=== PATIENT | female | born 1950 | race Caucasian/White ===

== ENCOUNTER 2017-02-09 12:52 | Outpatient (RCR) | payer OTHER, MEDICARE ==
[2016-12-20 10:50] LABS: PLATELET COUNT, AUTOMATED 145 K/uL (150-450)
[2016-12-27 10:44] VITALS: BP 112/67
[2016-12-27 11:08] LABS: PLATELET COUNT, AUTOMATED 164 K/uL (150-450)
[2017-01-03 10:56] LABS: PLATELET COUNT, AUTOMATED 116 K/uL (150-450)
[2017-01-03 12:35] VITALS: BP 127/67
[2017-01-10 10:48] LABS: PLATELET COUNT, AUTOMATED 90 K/uL (150-450)
[2017-01-12 12:58] VITALS: BP 121/79
--- NOTE | 2017-01-12 13:44 | ONC Progress Note - NP.Halsey ---
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 She is receiving palliative chemotherapy with capecitabine and Temodar since 11/2015. She tolerates oral chemotherapy very well, with fatigue and constipation being only side effects. She has occasional nausea without vomiting, which responds well to Zofran PRN She denies oral stomatitis, skin changes or diarrhea. Problem List (1) Pancreatic cancer metastasized to liver (2) Pancreatic cancer metastasized to lung (3) Constipation by delayed colonic transit Oncology History ONCOLOGY HISTORY The patient is a pleasant 66-year-old female. PRESENTATION Food poisoning when she was in [place] in August, with persistent nausea and vomiting, treated with antibiotic without improvement. She was also treated with metronidazole for P. hominis, which helped some, but nausea persisted. She also developed right upper quadrant abdominal pain. DIAGNOSTIC EVALUATION 1. Ultrasound of the right upper quadrant, done December 28, 2014, showed ill- defined hypoechoic globular mass in the tail of the pancreas 3.3 x 2.8 cm, worrisome for pancreatic neoplasm. There appears to be numerous hepatic and splenic metastases. 2. CT abdomen and pelvis done January 05, 2015 showed 2.6 cm lesion within the distal pancreatic body, concerning for primary pancreatic malignancy. There was hepatic hypoattenuating lesions. There was right axillary mediastinal , subcarinal, hilar, periportal and left periaortic adenopathy suspicious for metastatic disease with several noncalcified less than 6 mm pulmonary nodules bilaterally, indeterminate for metastatic disease. 3. Octreotide scan done February 04, 2015 revealed findings consistent with multiple metastatic lesions in the liver. No definite uptake in the chest or elsewhere. 4. 5-hydroxyindoleacetic acid in 24-hour urine specimen was normal. 5. Chromogranin A was elevated at 136. PROCEDURE 1. EGD done December 19, 2014 reveals stomach with histologic features consistent with reactive gastropathy. No active gastritis or Helicobacter pylori seen. 2. CT guided biopsy of the liver mass done January 07, 2015, was positive for well differentiated neuroendocrine tumor Ki-67. Proliferation rate was 10% to 20%, consistent with GI intermediate grade (grade 2) well differentiated neuroendocrine tumor. PATHOLOGY Intermediate grade, well differentiated, neuroendocrine tumor grade 2 with Ki- 67 proliferation rate of 10% to 20%. TREATMENT 1. Patient started first line therapy with Sandostatin March 2015. 2. Patient started second line therapy with capecitabine and Temodar January 11, 2016 for progressive disease. Medical History Past Medical History PAST MEDICAL HISTORY 1. Cataract surgery. 2. Hypothyroidism. 3. Anxiety. Past Surgical History PAST SURGICAL HISTORY 1. Partial hysterectomy 01/1990. 2. Tonsillectomy in 1959. 3. Cataract surgery between 2008 and 2009. Psychosocial History Smoking History: No Medications and Allergies Active Scripts Ondansetron (ONDANSETRON ODT) 4 Mg Tab.rapdis, 4 MG PO PRN, #90 MG 1 Refill Prov:TRINI COFFMAN [employer]IOR [employer]ELOPER[employer]BC, ONC 09/19/16 Capecitabine (XELODA) 500 Mg Tab, 1300 MG GT BID, #14 TAB take 1300mg bid x 14 days every 28 days Prov:TRINI COFFMAN SENIOR WEB DEVELOPER-BC, ONC 03/28/16 Reported Medications [place]-3 Fatty Acids/Fish Oil (FISH OIL 1,000 MG SOFTGEL) 1 Each Capsule, 1 EACH PO DAILY, CAPSULE 04/28/16 Temozolomide (TEMODAR) 180 Mg Capsule, 360 MG PO DIRECTED, CAPSULE 03/31/16 Multivitamin/Iron/Folic Acid (CENTRUM COMPLETE MULTIVIT TAB) 1 Each Tablet, 1 EACH PO DAILY 01/15/15 Calcium Carbonate/Vitamin D3 (CALCIUM 1,000 + D3 CAPLET) 1 Each Tablet, 1 EACH PO DAILY 01/15/15 Zinc Amino Acid Chelate (ZINC) 50 Mg Tablet, 50 MG PO DAILY 01/15/15 Levothyroxine Sodium (Levothroid) 125 Mcg Tablet, 125 MCG PO DAILY, 0 Refills 09/24/09 Allergies: Coded Allergies: No Known Drug Allergies (Verified , 12/11/15) Review of System/Physical Exam Review of Systems Constitutional: Denies Appetite/Weight Change, Denies Fever/Chills/Sweating, Denies Recent Infection, Denies Other Cardiovascular: Denies Chest Pain, Denies Orthopnea, Denies Edema, Denies Palpitations, Denies Other Respiratory: Denies Cough, Denies Expectoration, Denies Hemoptysis, Denies Shortness of Breath, Denies Wheezing, Denies Other HEENT: No Tinnitus, No Hearing Problems, No Epistaxis, No Nasal Discharge, No Sore Throat, No Mouth Ulcers, No Other Gastrointestinal: Nausea (occasional), Constipation, No Vomitting, No Diarrhea, No Heart Burn, No Swallowing Difficulties, No Abdominal Pain, No Other Genitourinary: Denies Hematuria, Denies Dysuria, Denies Nocturia, Denies Other Endocrine: Denies Diabetes, Denies Hot Flashes, Denies Thyroid Issues, Denies Enlarged Lymph Nodes, Denies Other Hematologic: Denies Bruising, Denies Bleeding, Denies Fatigue, Denies Weakness , Denies Other Musculoskeletal: Denies Muscle Pain, Denies Joint Pain, Denies Bone Pain, Denies Other Neurologic: No Numbness of Hands, No Tingling of Hands, No Headaches, No Numbness of Feet, No Tingling of Feet, No Convulsions, No Other Psychiatric: No Anxiety, No Depression, No Other Skin: Denies Skin Rash, Denies Lumps, Denies Erythema, Denies Dry Skin, Denies Moist Skin, Denies Other Physical Exam Vital Signs Temperature: 97.1 Pulse: 89 BP Systolic: 121 BP Diastolic: 79 Respiratory Rate: 16 O2 SAT: 96 O2 Delivery: Room Air Height (inches) 66.00 Weight lb: 153 Weight oz: 9.0 Weight Kg (Felix): 72.83 Pain: 0 General: Stable, Well Developed, Well Nourished, Not In Acute Distress, Not Other HEENT: No Trauma, No Conjunctivitis, No Icterus, No Mucositis, No Oral Thrush, No Sinus Tenderness, No Other Neck: Supple, No Thyromegaly, No Other Lungs: Clear to Auscultation, Not Percussed Bilaterally, Not Other Heart: Regular Rate, Regular Rhythm, No Gallops, No Murmurs Abdomen: Soft and Nontender, No Hepatosplenomegaly, No Masses Extremities: No Cyanosis, No Clubbing, No Edema, No Other Lymphadenopathy: No None, No Cervical, No Subclavicular, No Axillary, No Peripheral, No Femoral, No Other Psychiatric: Mood appears normal, Affect appears normal Skin: No Skin Rashes, No Bruising, No Purpura, No Moist Desquamation, No Dry Desquamation, No Erythema, No Mild Erythema, No Moderate Erythema, No Severe Erythema, No Induration, No Other Diagnostic Studies Diagnostic Studies Laboratory Laboratory Tests 01/10/17 10:35 Laboratory Tests 12/27/16 10:55: Peripheral Blood Smear No, Carcinoembryonic Antigen 6.5, Chromagranin A 128 01/10/17 10:35: White Blood Count 2.6, Red Blood Count 3.64, Hemoglobin 13.7, Hematocrit 38.4, Mean Corpuscular Volume 105.3, Mean Corpuscular Hemoglobin 37.6, Mean Corpuscular Hemoglobin Concent 35.7, Red Cell Distribution Width 14.7, Platelet Count 90, Mean Platelet Volume 6.8, Neutrophils (%) (Auto) 71.8, Lymphocytes (% ) (Auto) 10.9, Monocytes (%) (Auto) 12.9, Eosinophils (%) (Auto) 3.3, Basophils (%) (Auto) 1.1, Nucleated RBC Relative Count (auto) 0.1, Neutrophils # (Auto) 1.8, Lymphocytes # (Auto) 0.3, Monocytes # (Auto) 0.3, Eosinophils # (Auto) 0.1 , Basophils # (Auto) 0.0, Nucleated RBC Absolute Count (auto) 0.00, Sodium Level 139, Potassium Level 4.3, Chloride Level 108, Carbon Dioxide Level 20, Blood Urea Nitrogen 15, Creatinine 0.70, Glomerular Filtration Rate Calc > 60.0 , Random Glucose 97, Calcium Level 9.7, Total Bilirubin 0.8, Aspartate Amino Transf (AST/SGOT) 26, Alanine Aminotransferase (ALT/SGPT) 33, Alkaline Phosphatase 92, Total Protein 7.4, Albumin 4.1 Assessment and Plan Assessment & Plan ASSESSMENT 1. Stage IV pancreatic neuroendocrine tumor, well differentiated, grade 2, with mass in the distal body of the pancreas with metastasis to the liver and lung by CT of abdomen and pelvis done January 05, 2015. CT-guided biopsy of the liver mass done January 05, 2015 showed well differentiated neuroendocrine tumor with Ki-67 proliferation rate of 10% to 20%, consistent with intermediate grade well differentiated neuroendocrine tumor. Octreotide scan showed uptake in multiple lesions in the liver, but not in the pancreas or in the lungs or elsewhere. 5-hydroxyindoleacetic acid in the urine was normal. Patient has been evaluated at [facility] with recommendation of treatment with Sandostatin, which was given between March 2015 through December 10, 2015, when CT scan of the abdomen and pelvis revealed severe hepatomegaly with innumerable metastases throughout the liver, with evidence of progression. Patient started second line palliative treatment with capecitabine and Temodar January 11, 2016. She has received 11 cycles so far and is tolerating treatment very well, except for worsening fatigue. She is currently on day 12 of capecitabine and day 3 of Temodar. She has not had any recent imaging. She is currently using capecitabine 1300 mg twice daily for 14 days, and Temodar 360 mg daily for 5 days, days 10-14 of each cycle. CEA is currently 6.5 and chromogranin A is currently 128. She has chronic leukopenia without neutropenia and chronic thrombocytopenia. She will return to the office for a follow up visit in a month with CBC, CMP, CEA and chromogranin A. Plan is to consider dose reduction if worsening leukopenia and neutropenia. 2. Chemotherapy-induced thrombocytopenia. Current platelet count 90,000. 3. Chemotherapy-induced leukopenia. Current white count 2.6, ANC is 1800. I will monitor CBC weekly and consider chemotherapy dose reductions if neutropenia or worsening thrombocytopenia. 4. Hypothyroidism, on supplement. 5. Anxiety, on Zoloft. PLAN: 1. Capecitabine 1300 mg twice daily for 14 days - day 12 of cycle 11. 2. Temodar 360 mg for five days, days 10-14 of each cycle of chemotherapy - day 3 of cycle 11. 3. CBC and CMP weekly. 4. Patient to return for follow up in 4 weeks with CBC, CMP, chromogranin A and CEA. 5. Patient to contact us for any new concerns or complaints. I personally spent a total of 25 minutes. Of that 15 minutes was counseling/ coordination of patient's care. See my note above for details. DAVID CRUZ MD Jan 12, 2017 13:44
[2017-01-17 11:20] LABS: PLATELET COUNT, AUTOMATED 122 K/uL (150-450)
[2017-01-17 12:20] VITALS: BP 128/79
[2017-01-24 10:41] VITALS: BP 142/81
[2017-01-24 11:01] LABS: PLATELET COUNT, AUTOMATED 133 K/uL (150-450)
[2017-01-31 10:42] VITALS: BP 132/83
[2017-01-31 10:50] LABS: PLATELET COUNT, AUTOMATED 124 K/uL (150-450)
[2017-02-07 10:25] VITALS: BP 124/79
[2017-02-07 10:52] LABS: PLATELET COUNT, AUTOMATED 127 K/uL (150-450)
[~2017-02-09] VITALS: Ht 167.6 cm; Wt 82.8 kg
[~2017-02-09 12:52] MED LIST: CALC-965 PO; CAPE150T PO; FENT1PAT40 TD; FLAX100027 PO; LEVO125T77 PO; MULT-768 PO; OCTR20KI IM; OMEG-23 PO; ONDA4TAB9 PO; SERT-181 PO; SERT25TA87 PO; TOLT2CAP7 PO; XELOD500PT GT; ZINC50TA2 PO; [UNRECOGNIZED DRUG - CODE] PO
[2017-02-09 13:00] VITALS: BP 124/80
--- NOTE | 2017-02-09 19:33 | ONCOLOGY FOLLOW UP NOTE ---
EVENT DATE: February 09, 2017 DIAGNOSES 1. 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 2. Hypothyroidism. 3. Anxiety. 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 ONCOLOGY HISTORY The patient is a 66-year-old female. The patient is here today for followup of her pancreatic neuroendocrine tumor with hepatic metastasis. The patient is stable clinically. She has some cough and nasal discharge from her allergy. She has occasional nausea, vomiting and diarrhea. She has also right upper quadrant abdominal pain, especially on taking a breath. Hematologically, she is weak, tired and fatigued. PRESENTATION Food poisoning when she was in [place] in August, with persistent nausea and vomiting, treated with antibiotic without improvement. She was also treated with metronidazole for P. hominis, which helped some, but she remains with persistent nausea. She also developed right upper quadrant abdominal pain. DIAGNOSTIC EVALUATION 1. Ultrasound of the right upper quadrant, done December 28, 2014. Did reveal ill-defined hypoechoic globular mass in the tail of the pancreas 3.3 x 2.8 cm, worrisome for pancreatic neoplasm. There appears to be numerous hepatic and splenic metastases. 2. CT abdomen and pelvis done January 05, 2015 did reveal 2.6 cm lesion within the distal pancreatic body, concerning for primary pancreatic malignancy. There was hepatic hypoattenuating lesions. There was right axillary mediastinal, subcarinal, hilar, periportal and left periaortic adenopathy suspicious for metastatic disease with several noncalcified less than 6 mm pulmonary nodules bilaterally, indeterminate for metastatic disease. 3. Octreotide scan done February 04, 2015 revealed findings consistent with multiple metastatic lesions in the liver. No definite uptake in the chest or elsewhere. 5-hydroxyindoleacetic acid in 24-hour urine specimen was normal. 4. Chromogranin A was elevated at 136. PROCEDURE 1. EGD done December 19, 2014 reveals stomach with histologic features consistent with reactive gastropathy. No active gastritis or Helicobacter pylori seen. 2. CT guided biopsy of the liver mass done January 07, 2015, came back positive for well differentiated neuroendocrine tumor Ki-67. Proliferation rate was 10% to 20%, consistent with GI intermediate grade (grade 2) well differentiated neuroendocrine tumor. PATHOLOGY Positive for intermediate grade, well differentiated, neuroendocrine tumor grade 2 with Ki-67 proliferation rate of 10% to 20%. TREATMENT 1. Patient started treatment with Sandostatin March 2015. 2. Patient started treatment with capecitabine and Temodar January 11, 2016 for progressive disease. 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 She is doing really very well and feeling very well in herself, except that she has some joint pains mainly in the shoulders and knees. She has also some constipation. She has also some fatigue , but other than that she is really feeling very well. PAST MEDICAL HISTORY 1. Insignificant except for cataract removal. 2. Hypothyroidism. 3. Anxiety. PAST SURGICAL HISTORY 1. In January 1990, the patient had partial hysterectomy. 2. In 1959, the patient had tonsillectomy. 3. She had cataract surgery between 2008 and 2009. SOCIAL HISTORY The patient is . She does not have biological children. 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 She has about twelve drinks per year. She denies any abuse of tobacco or illicit drugs. FAMILY HISTORY Father had lung cancer at the age of 72. CURRENT MEDICATIONS 1. Levothyroxine 125 mcg daily. 2. Sandostatin LAR 20 mg intramuscularly every month. 3. Zinc 50 mg daily. 4. Fish oil 1000 mg daily. 5. Calcium and vitamin D 1200 mg daily. 6. Zofran 4 mg three times daily. 7. Centrum multivitamin one tablet daily. ALLERGIES No known drug allergies. REVIEW OF SYSTEMS CONSTITUTIONAL: No appetite or weight change. No fever, chills or sweating. No recent infection. HEENT: Ears: No tinnitus or hearing problem. Nose: Patient has runny nose. Throat: No sore throat or mouth ulcers. Eyes: No diplopia or visual changes. RESPIRATORY: No shortness of breath. No cough, expectoration or hemoptysis. CARDIOVASCULAR: No chest pain, orthopnea, or paroxysmal nocturnal dyspnea (PND) . No edema. No palpitations. GASTROINTESTINAL: She has constipation. HEMATOLOGICAL: She is weak, tired and fatigued. GENITOURINARY: No hematuria or dysuria. MUSCULOSKELETAL: She has pain in the shoulders and knees. NEUROLOGICAL: No tingling or numbness in the hands or feet. No headaches or convulsions. SKIN: No skin rash or lumps. PSYCHIATRIC: No anxiety or depression. PHYSICAL EXAMINATION GENERAL: Looks stable. Well-developed, well-nourished, and in no acute distress. VITAL SIGNS: Blood pressure 124/80, pulse 90 per minute, respirations 16 per minute, temperature 97.7, pulse ox 95% on room air. HEENT: Head: Atraumatic. No sinus tenderness to palpation. Eyes: No icterus or conjunctivitis. Mouth and throat: No oral thrush or mucositis. NECK: Supple. No cervical or supraclavicular lymphadenopathy. LUNGS: Clear to auscultation and percussion bilaterally. HEART: Regular rate and rhythm. No gallops, murmurs, clicks or rubs. ABDOMEN: The liver is palpable at the right costal margin, but it is not tender on palpation at this time. EXTREMITIES: No cyanosis, clubbing or edema. LYMPHATICS: No peripheral lymphadenopathy. NEUROLOGICAL: Conscious, alert and oriented times three. No focal motor or sensory deficits. PSYCHIATRIC: Mood and affect appear normal. DIAGNOSTIC DATA CBC showed a white count of 2.2, hemoglobin 13.6, hematocrit 38.3, platelets 127 ,000. Chem panel totally normal except chloride 108, carbon dioxide 20. CEA is 6, which is down from 6.5 and chromogranin 143, which is up from 128. ASSESSMENT 1. Stage IV pancreatic neuroendocrine tumor, well differentiated, grade 2, with mass in the distal body of the pancreas with metastasis to the liver and lung by CT of abdomen and pelvis done January 05, 2015. CT-guided biopsy of the liver mass done January 05, 2015 came back positive for well differentiated neuroendocrine tumor with Ki-67 proliferation rate of 10% to 20% , consistent with intermediate grade well differentiated neuroendocrine tumor. Octreotide scan showed uptake in multiple lesions in the liver, but not in the pancreas or in the lungs or elsewhere. 5-hydroxyindoleacetic acid in the urine was normal. Patient has been evaluated at [facility] with recommendation of treatment with Sandostatin, which was given between March 2015 through December 10, 2015, when CT scan of the abdomen and pelvis revealed severe hepatomegaly with innumerable metastases throughout the liver, with evidence of progression. Patient started treatment with capecitabine and Temodar on January 11, 2016. She has received 12 cycles so far and is tolerating treatment very well. She is feeling very well in herself. Her tumor marker showed response to her treatment. Her CEA dropped from 6.5 last visit, and currently 6. Patient currently using capecitabine 1300 mg twice daily for 14 days, and Temodar 360 mg for 5 days from day 10-14 of each cycle. I am planning to continue the same treatment. I will see her again in a month with CBC, chem panel, CEA and chromogranin A. 2. Chemotherapy-induced thrombocytopenia. Current platelet count 1270,000. I will continue to monitor. 3. Chemotherapy-induced leukopenia. Current white count is 2.2. I may consider decreasing the dose of her chemotherapy. 4. Hypothyroidism, on supplement. 5. Anxiety, on Zoloft. PLAN: 1. Capecitabine 1300 mg twice daily for 14 days. This will be cycle 13. 2. Temodar 360 mg for five days, days 10-14 of each cycle of chemotherapy. This will be cycle number 12. 3. CBC, chem panel to be checked weekly. 4. Patient is to return in 4 weeks with CBC, chem panel, chromogranin A and CEA. 5. Patient is to contact us for any new concerns or complaints. MTDD
== END 2017-03-19 ==
LOC: ONC 12:52
PROVIDERS: ATTEND Internal Medicine Hematology
DX: C25.1 Malignant neoplasm of body of pancreas (principal); C78.7 Secondary malignant neoplasm of liver and intrahepatic bile duct; C78.00 Secondary malignant neoplasm of unspecified lung; D69.59 Other secondary thrombocytopenia; D70.2 Other drug-induced agranulocytosis; E03.9 Hypothyroidism, unspecified; R53.83 Other fatigue; Z79.899 Other long term (current) drug therapy
CPT/HCPCS: 36415; 82040; 82247; 82310; 82374; 82378; 82435; 82565; 82947; 84075; 84132; 84155; 84295; 84450; 84460; 84520; 85025; 86316; 99212

== ENCOUNTER → 2017-03-15 | Outpatient (CLI) | payer OTHER, MEDICARE ==
--- NOTE | 2017-03-15 16:01 | RADIOLOGY IMAGING REPORT ---
FACILITY: [facility] PATIENT NAME: Maria L Moralez : 1950 MR: [id number] V: [id number] EXAM DATE: ORDERING PHYSICIAN: TIA LOUIS TECHNOLOGIST: Location: [facility] Patient: Maria L Moralez : 1950 Visit/Account:[id number] Date of Sevice: 03/15/2017 KNEE 3 VIEWS BILATERAL HISTORY: Bilateral knee pain COMPARISON: None. FINDINGS: Three views bilateral knees are submitted. On the left, there is mild to moderate narrowing in the m edial compartment. Mild narrowing lateral compartment. Marginal osteophytic changes seen both media lly and laterally. Lateral view demonstrates osseous spurring superiorly in the patellofemoral joint. No appreciable deidre int effusion. Three views right knee are submitted. Mild medial and lateral joint space narrowing is noted with ma rginal osteophytic change. Subtle spurring from the tibial spines. Lateral view demonstrates spurri ng at patellofemoral joint without appreciable joint effusion. IMPRESSION: 1. There is mild to moderate tricompartmental osteoarthritic change bilaterally without acute findin g Report Dictated By: Robin Mccall MD at 03/15/2017 3:52 PM Report E-Signed By: Robin Mccall MD at 03/15/2017 3:55 PM WSN:[email or web address]
== END ==
LOC: RAD 15:06
PROVIDERS: ATTEND Nurse Practitioner Family
DX: M17.0 Bilateral primary osteoarthritis of knee (principal)

== ENCOUNTER 2017-06-09 09:16 | Outpatient (RCR) | payer OTHER, MEDICARE ==
[2017-03-28 10:33] VITALS: BP 121/82
[2017-03-28 10:49] LABS: PLATELET COUNT, AUTOMATED 142 K/uL (150-450)
[2017-04-07 15:07] VITALS: BP 119/82
--- NOTE | 2017-04-07 19:16 | ONCOLOGY FOLLOW UP NOTE ---
EVENT DATE: April 07, 2017 DIAGNOSES 1. 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 2. Hypothyroidism. 3. Anxiety. 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 ONCOLOGY HISTORY The patient is a 67-year-old female. The patient is here today for followup of her pancreatic neuroendocrine tumor with hepatic metastasis. The patient is stable clinically. She has some cough and nasal discharge from her allergy. She has occasional nausea, vomiting and diarrhea. She has also right upper quadrant abdominal pain, especially on taking a breath. Hematologically, she is weak, tired and fatigued. PRESENTATION Food poisoning when she was in [place] in August, with persistent nausea and vomiting, treated with antibiotic without improvement. She was also treated with metronidazole for P. hominis, which helped some, but she remains with persistent nausea. She also developed right upper quadrant abdominal pain. DIAGNOSTIC EVALUATION 1. Ultrasound of the right upper quadrant, done December 28, 2014. Did reveal ill-defined hypoechoic globular mass in the tail of the pancreas 3.3 x 2.8 cm, worrisome for pancreatic neoplasm. There appears to be numerous hepatic and splenic metastases. 2. CT abdomen and pelvis done January 05, 2015 did reveal 2.6 cm lesion within the distal pancreatic body, concerning for primary pancreatic malignancy. There was hepatic hypoattenuating lesions. There was right axillary mediastinal, subcarinal, hilar, periportal and left periaortic adenopathy suspicious for metastatic disease with several noncalcified less than 6 mm pulmonary nodules bilaterally, indeterminate for metastatic disease. 3. Octreotide scan done February 04, 2015 revealed findings consistent with multiple metastatic lesions in the liver. No definite uptake in the chest or elsewhere. 5-hydroxyindoleacetic acid in 24-hour urine specimen was normal. 4. Chromogranin A was elevated at 136. PROCEDURE 1. EGD done December 19, 2014 reveals stomach with histologic features consistent with reactive gastropathy. No active gastritis or Helicobacter pylori seen. 2. CT guided biopsy of the liver mass done January 07, 2015, came back positive for well differentiated neuroendocrine tumor Ki-67. Proliferation rate was 10% to 20%, consistent with GI intermediate grade (grade 2) well differentiated neuroendocrine tumor. PATHOLOGY Positive for intermediate grade, well differentiated, neuroendocrine tumor grade 2 with Ki-67 proliferation rate of 10% to 20%. TREATMENT 1. Patient started treatment with Sandostatin March 2015. 2. Patient started treatment with capecitabine and Temodar January 11, 2016 for progressive disease. HISTORY OF PRESENT ILLNESS Patient is here today for followup of her metastatic neuroendocrine tumor of the pancreas with liver metastasis on chemotherapy with capecitabine and Temodar with stable disease. She is complaining of joint pains lately. She is also having some weakness, tiredness and fatigue. She is back from a trip to [place] and she is really doing very well currently. PAST MEDICAL HISTORY 1. Insignificant except for cataract removal. 2. Hypothyroidism. 3. Anxiety. PAST SURGICAL HISTORY 1. In January 1990, the patient had partial hysterectomy. 2. In 1959, the patient had tonsillectomy. 3. She had cataract surgery between 2008 and 2009. SOCIAL HISTORY The patient is . She does not have biological children. 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 She has about twelve drinks per year. She denies any abuse of tobacco or illicit drugs. FAMILY HISTORY Father had lung cancer at the age of 72. CURRENT MEDICATIONS 1. Levothyroxine 125 mcg daily. 2. Sandostatin LAR 20 mg intramuscularly every month. 3. Zinc 50 mg daily. 4. Fish oil 1000 mg daily. 5. Calcium and vitamin D 1200 mg daily. 6. Zofran 4 mg three times daily. 7. Centrum multivitamin one tablet daily. ALLERGIES No known drug allergies. REVIEW OF SYSTEMS CONSTITUTIONAL: No appetite or weight change. No fever, chills or sweating. No recent infection. HEENT: Ears: No tinnitus or hearing problem. Nose: Patient has runny nose. Throat: No sore throat or mouth ulcers. Eyes: No diplopia or visual changes. RESPIRATORY: No shortness of breath. No cough, expectoration or hemoptysis. CARDIOVASCULAR: No chest pain, orthopnea, or paroxysmal nocturnal dyspnea (PND) . No edema. No palpitations. GASTROINTESTINAL: She has constipation. HEMATOLOGICAL: She is weak, tired and fatigued. GENITOURINARY: No hematuria or dysuria. MUSCULOSKELETAL: Patient has joint pains lately. NEUROLOGICAL: No tingling or numbness in the hands or feet. No headaches or convulsions. She is weak, tired and fatigued. SKIN: No skin rash or lumps. PSYCHIATRIC: No anxiety or depression. PHYSICAL EXAMINATION GENERAL: Looks stable. Well-developed, well-nourished, and in no acute distress. VITAL SIGNS: Blood pressure 119/82, pulse 86 per minute, respirations 16 per minute, temperature 96.7, pulse ox 95% on room air. HEENT: Head: Atraumatic. No sinus tenderness to palpation. Eyes: No icterus or conjunctivitis. Mouth and throat: No oral thrush or mucositis. NECK: Supple. No cervical or supraclavicular lymphadenopathy. LUNGS: Clear to auscultation and percussion bilaterally. HEART: Regular rate and rhythm. No gallops, murmurs, clicks or rubs. ABDOMEN: The liver is palpable at the right costal margin, but it is not tender on palpation at this time. EXTREMITIES: No cyanosis, clubbing or edema. LYMPHATICS: No peripheral lymphadenopathy. NEUROLOGICAL: Conscious, alert and oriented times three. No focal motor or sensory deficits. PSYCHIATRIC: Mood and affect appear normal. DIAGNOSTIC DATA CBC showed a white count of 2.3, hemoglobin 13.4, hematocrit 37.9%, platelets 142,000. ANC is 1.6. Chem panel is totally normal. CEA is 7.3, which is up from 6. Chromogranin is 127, which is down from 143. ASSESSMENT 1. Stage IV pancreatic neuroendocrine tumor, well differentiated, grade 2, with mass in the distal body of the pancreas with metastasis to the liver and lung by CT of the abdomen and pelvis done January 05, 2015. CT-guided biopsy of the liver mass done January 05, 2015 came back positive for well differentiated neuroendocrine tumor with Ki-67 proliferation rate of 10% to 20% , consistent with intermediate grade well differentiated neuroendocrine tumor. Octreotide scan showed uptake in multiple lesions of the liver, but not in the pancreas or in the lungs or elsewhere. 5-hydroxyindoleacetic acid of the urine was normal. Patient has been evaluated at [facility] with recommendation of treatment with Sandostatin, which was given between March 2015 through December 10, 2015, when her CT scan of the abdomen and pelvis revealed severe hepatomegaly with innumerable metastases throughout the liver, with evidence of progression. Patient started treatment with capecitabine and Temodar on January 11, 2016. She is tolerating treatment very well, except for currently pain in her joints and fatigue. Her tumor marker showed response to her treatment. Her CEA currently is 7.3, which is up from 6, and chromogranin A is 127, which is down from 143, but she had this fluctuation of her markers before. She is currently receiving capecitabine 1300 mg twice daily for 14 days, and Temodar 360 mg for five days from days 10-14 of each cycle. I am planning to hold her Temodar because of her leukopenia and pain in her joints. I will see her again as usual in a month with CBC, chem panel, CEA and chromogranin A. 2. Chemotherapy-induced leukopenia and neutropenia. Current white count is 2.3 and ANC 1.6. I am planning to hold Temodar and continue treatment with capecitabine. 4. Hypothyroidism, on supplement. 5. Anxiety, on Zoloft. PLAN: 1. Capecitabine 1300 mg twice daily for 14 days. 2. Patient to return in four weeks with CBC, chem panel, chromogranin A and CEA. 3. Patient is to contact us for any new concerns or complaints. MTDD
[2017-04-26 10:45] VITALS: BP 126/81
[2017-04-26 11:00] LABS: PLATELET COUNT, AUTOMATED 144 K/uL (150-450)
[2017-05-05 10:41] VITALS: BP 114/80
--- NOTE | 2017-05-06 18:28 | ONCOLOGY FOLLOW UP NOTE ---
EVENT DATE: May 05, 2017 DIAGNOSES 1. 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 2. Hypothyroidism. 3. Anxiety. 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 ONCOLOGY HISTORY The patient is a 67-year-old female. The patient is here today for followup of her pancreatic neuroendocrine tumor with hepatic metastasis. The patient is stable clinically. She has some cough and nasal discharge from her allergy. She has occasional nausea, vomiting and diarrhea. She has also right upper quadrant abdominal pain, especially on taking a breath. Hematologically, she is weak, tired and fatigued. PRESENTATION Food poisoning when she was in [place] in [place], with persistent nausea and vomiting, treated with antibiotic without improvement. She was also treated with metronidazole for P. hominis, which helped some, but she remains with persistent nausea. She also developed right upper quadrant abdominal pain. DIAGNOSTIC EVALUATION 1. Ultrasound of the right upper quadrant, done December 28, 2014. Did reveal ill-defined hypoechoic globular mass in the tail of the pancreas 3.3 x 2.8 cm, worrisome for pancreatic neoplasm. There appears to be numerous hepatic and splenic metastases. 2. CT abdomen and pelvis done January 05, 2015 did reveal 2.6 cm lesion within the distal pancreatic body, concerning for primary pancreatic malignancy. There was hepatic hypoattenuating lesions. There was right axillary mediastinal, subcarinal, hilar, periportal and left periaortic adenopathy suspicious for metastatic disease with several noncalcified less than 6 mm pulmonary nodules bilaterally, indeterminate for metastatic disease. 3. Octreotide scan done February 04, 2015 revealed findings consistent with multiple metastatic lesions in the liver. No definite uptake in the chest or elsewhere. 5-hydroxyindoleacetic acid in 24-hour urine specimen was normal. 4. Chromogranin A was elevated at 136. PROCEDURE 1. EGD done December 19, 2014 reveals stomach with histologic features consistent with reactive gastropathy. No active gastritis or Helicobacter pylori seen. 2. CT guided biopsy of the liver mass done January 07, 2015, came back positive for well differentiated neuroendocrine tumor Ki-67. Proliferation rate was 10% to 20%, consistent with GI intermediate grade (grade 2) well differentiated neuroendocrine tumor. PATHOLOGY Positive for intermediate grade, well differentiated, neuroendocrine tumor grade 2 with Ki-67 proliferation rate of 10% to 20%. TREATMENT 1. Patient started treatment with Sandostatin March 2015. 2. Patient started treatment with capecitabine and Temodar January 11, 2016 for progressive disease. HISTORY OF PRESENT ILLNESS Patient is here today for followup of her metastatic neuroendocrine tumor of the pancreas with liver metastasis on chemotherapy with capecitabine, after stopping Temodar because of the side effects. She is complaining of dry cough. She had also an episode of constipation with bloating and epigastric discomfort, which resolved. Other than that she is stable. PAST MEDICAL HISTORY 1. Insignificant except for cataract removal. 2. Hypothyroidism. 3. Anxiety. PAST SURGICAL HISTORY 1. In January 1990, the patient had partial hysterectomy. 2. In 1959, the patient had tonsillectomy. 3. She had cataract surgery between 2008 and 2009. SOCIAL HISTORY The patient is . She does not have biological children. 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 She has about twelve drinks per year. She denies any abuse of tobacco or illicit drugs. FAMILY HISTORY Father had lung cancer at the age of 72. CURRENT MEDICATIONS 1. Levothyroxine 125 mcg daily. 2. Sandostatin LAR 20 mg intramuscularly every month. 3. Zinc 50 mg daily. 4. Fish oil 1000 mg daily. 5. Calcium and vitamin D 1200 mg daily. 6. Zofran 4 mg three times daily. 7. Centrum multivitamin one tablet daily. ALLERGIES No known drug allergies. REVIEW OF SYSTEMS CONSTITUTIONAL: No appetite or weight change. No fever, chills or sweating. No recent infection. HEENT: Ears: No tinnitus or hearing problem. Nose: Patient has runny nose. Throat: No sore throat or mouth ulcers. Eyes: No diplopia or visual changes. RESPIRATORY: She has a dry cough. No shortness of breath. No expectoration or hemoptysis. CARDIOVASCULAR: No chest pain, orthopnea, or paroxysmal nocturnal dyspnea (PND) . No edema. No palpitations. GASTROINTESTINAL: She had an episode of constipation with bloating and epigastric discomfort, which resolved. HEMATOLOGICAL: She is weak, tired and fatigued. GENITOURINARY: No hematuria or dysuria. MUSCULOSKELETAL: Patient has joint pains lately. NEUROLOGICAL: No tingling or numbness in the hands or feet. No headaches or convulsions. She is weak, tired and fatigued. SKIN: No skin rash or lumps. PSYCHIATRIC: No anxiety or depression. PHYSICAL EXAMINATION GENERAL: Looks stable. Well-developed, well-nourished, and in no acute distress. VITAL SIGNS: Blood pressure 114/80, pulse 104 per minute, respirations 16 per minute, temperature 97.1, pulse ox 93% on room air. HEENT: Head: Atraumatic. No sinus tenderness to palpation. Eyes: No icterus or conjunctivitis. Mouth and throat: No oral thrush or mucositis. NECK: Supple. No cervical or supraclavicular lymphadenopathy. LUNGS: Clear to auscultation and percussion bilaterally. HEART: Regular rate and rhythm. No gallops, murmurs, clicks or rubs. ABDOMEN: The liver is palpable at the right costal margin, but it is not tender on palpation at this time. EXTREMITIES: No cyanosis, clubbing or edema. LYMPHATICS: No peripheral lymphadenopathy. NEUROLOGICAL: Conscious, alert and oriented times three. No focal motor or sensory deficits. PSYCHIATRIC: Mood and affect appear normal. DIAGNOSTIC DATA CBC showed a white count of 2.7, hemoglobin 13.4, hematocrit 38.4, platelets 144 ,000. ANC is 1.8. CEA is 9.3, which is up from 7.3. Chromogranin A is 158, which is up from 127. Chem panel totally normal except blood sugar 114 and carbon dioxide 20. ASSESSMENT 1. Stage IV pancreatic neuroendocrine tumor, well differentiated, grade 2, with mass in the distal body of the pancreas with metastasis to the liver and lung by CT of the abdomen and pelvis done January 05, 2015. CT-guided biopsy of the liver mass done January 05, 2015 came back positive for well differentiated neuroendocrine tumor with Ki-67 proliferation rate of 10% to 20% , consistent with intermediate grade well differentiated neuroendocrine tumor. Octreotide scan showed uptake in multiple lesions of the liver, but not in the pancreas or in the lungs or elsewhere. 5-hydroxyindoleacetic acid of the urine was normal. Patient has been evaluated at [facility] with recommendation of treatment with Sandostatin, which was given between March 2015 through December 10, 2015, when her CT scan of the abdomen and pelvis revealed severe hepatomegaly with innumerable metastases throughout the liver, with evidence of progression. Patient started treatment with capecitabine and Temodar on January 11, 2016. She did fine with the treatment until recently. She could not tolerate Temodar, so her last cycle was with capecitabine alone. Her CEA increased from 7.3 and currently 9.3. Chromogranin A increased from 127 and currently 158. I talked to the patient today regarding resuming back Temodar, but she preferred to continue this cycle with capecitabine, and if the marker continues to rise next visit, I am planning to introduce Temodar again in her treatment. Patient started her treatment with capecitabine and Temodar January 10, 2018. So I am planning to continue capecitabine alone this cycle, and I will see her again in a month with CBC, chem panel, CEA and chromogranin A. 2. Chemotherapy-induced leukopenia and neutropenia. Current white count is 2.7 and ANC 1.8. We will continue to monitor. 3. Hypothyroidism, on supplement. 4. Anxiety, on Zoloft. PLAN: 1. Capecitabine 1300 mg twice daily for 14 days. 2. Patient to return in four weeks with CBC, chem panel, chromogranin A and CEA. 3. Patient is to contact us for any new concern or complaints. MTDD
[2017-05-30 10:59] VITALS: BP 122/80
[2017-05-30 11:07] LABS: PLATELET COUNT, AUTOMATED 141 K/uL (150-450)
[~2017-06-09 09:16] MED LIST changes: +XELOD500PT PO
[2017-06-09 09:30] VITALS: BP 122/81
--- NOTE | 2017-06-09 16:54 | ONCOLOGY FOLLOW UP NOTE ---
EVENT DATE: June 09, 2017 DIAGNOSES 1. 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 2. Hypothyroidism. 3. Anxiety. CHIEF COMPLAINT Patient is here today for followup of her metastatic neuroendocrine tumor of the pancreas. ONCOLOGY HISTORY The patient is a 67-year-old female. The patient is here today for followup of her pancreatic neuroendocrine tumor with hepatic metastasis. The patient is stable clinically. She has some cough and nasal discharge from her allergy. She has occasional nausea, vomiting and diarrhea. She has also right upper quadrant abdominal pain, especially on taking a breath. Hematologically, she is weak, tired and fatigued. PRESENTATION Food poisoning when she was in [place] in August, with persistent nausea and vomiting, treated with antibiotic without improvement. She was also treated with metronidazole for P. hominis, which helped some, but she remains with persistent nausea. She also developed right upper quadrant abdominal pain. DIAGNOSTIC EVALUATION 1. Ultrasound of the right upper quadrant, done December 28, 2014. Did reveal ill-defined hypoechoic globular mass in the tail of the pancreas 3.3 x 2.8 cm, worrisome for pancreatic neoplasm. There appears to be numerous hepatic and splenic metastases. 2. CT abdomen and pelvis done January 05, 2015 did reveal 2.6 cm lesion within the distal pancreatic body, concerning for primary pancreatic malignancy. There was hepatic hypoattenuating lesions. There was right axillary mediastinal, subcarinal, hilar, periportal and left periaortic adenopathy suspicious for metastatic disease with several noncalcified less than 6 mm pulmonary nodules bilaterally, indeterminate for metastatic disease. 3. Octreotide scan done February 04, 2015 revealed findings consistent with multiple metastatic lesions in the liver. No definite uptake in the chest or elsewhere. 5-hydroxyindoleacetic acid in 24-hour urine specimen was normal. 4. Chromogranin A was elevated at 136. PROCEDURE 1. EGD done December 19, 2014 reveals stomach with histologic features consistent with reactive gastropathy. No active gastritis or Helicobacter pylori seen. 2. CT guided biopsy of the liver mass done January 07, 2015, came back positive for well differentiated neuroendocrine tumor Ki-67. Proliferation rate was 10% to 20%, consistent with GI intermediate grade (grade 2) well differentiated neuroendocrine tumor. PATHOLOGY Positive for intermediate grade, well differentiated, neuroendocrine tumor grade 2 with Ki-67 proliferation rate of 10% to 20%. TREATMENT 1. Patient started treatment with Sandostatin March 2015. 2. Patient started treatment with capecitabine and Temodar January 11, 2016 for progressive disease. HISTORY OF PRESENT ILLNESS Patient is here today for followup of her metastatic pancreatic neuroendocrine tumor with liver metastasis. Patient is doing fine currently. She is feeling much better. She is totally asymptomatic today. PAST MEDICAL HISTORY 1. Insignificant except for cataract removal. 2. Hypothyroidism. 3. Anxiety. PAST SURGICAL HISTORY 1. In January 1990, the patient had partial hysterectomy. 2. In 1959, the patient had tonsillectomy. 3. She had cataract surgery between 2008 and 2009. SOCIAL HISTORY The patient is . She does not have biological children. 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 She has about twelve drinks per year. She denies any abuse of tobacco or illicit drugs. FAMILY HISTORY Father had lung cancer at the age of 72. CURRENT MEDICATIONS 1. Levothyroxine 125 mcg daily. 2. Sandostatin LAR 20 mg intramuscularly every month. 3. Zinc 50 mg daily. 4. Fish oil 1000 mg daily. 5. Calcium and vitamin D 1200 mg daily. 6. Zofran 4 mg three times daily. 7. Centrum multivitamin one tablet daily. ALLERGIES No known drug allergies. REVIEW OF SYSTEMS CONSTITUTIONAL: No appetite or weight change. No fever, chills or sweating. No recent infection. HEENT: Ears: No tinnitus or hearing problem. Nose: No nasal discharge or epistaxis. Throat: No sore throat or mouth ulcers. Eyes: No diplopia or visual changes. RESPIRATORY: No shortness of breath. No expectoration or hemoptysis. CARDIOVASCULAR: No chest pain, orthopnea, or paroxysmal nocturnal dyspnea (PND) . No edema. No palpitations. GASTROINTESTINAL: No nausea or vomiting. No diarrhea or constipation. No change in bowel movements. No heartburn or swallowing difficulties. No abdominal pain. No jaundice. No hematemesis, melena or rectal bleeding. HEMATOLOGICAL: No bleeding or easy bruising. No weakness or fatigue. No enlarged lymph nodes. GENITOURINARY: No hematuria or dysuria. MUSCULOSKELETAL: No pain in the muscles, joints or bones. NEUROLOGICAL: No tingling or numbness in the hands or feet. No headaches or convulsions. She is weak, tired and fatigued. SKIN: No skin rash or lumps. PSYCHIATRIC: No anxiety or depression. PHYSICAL EXAMINATION GENERAL: Looks stable. Well-developed, well-nourished, and in no acute distress. VITAL SIGNS: Blood pressure 122/89, pulse 89 per minute, respirations 16 per minute, temperature 98, pulse ox 94% on room air. HEENT: Head: Atraumatic. No sinus tenderness to palpation. Eyes: No icterus or conjunctivitis. Mouth and throat: No oral thrush or mucositis. NECK: Supple. No cervical or supraclavicular lymphadenopathy. LUNGS: Clear to auscultation and percussion bilaterally. HEART: Regular rate and rhythm. No gallops, murmurs, clicks or rubs. ABDOMEN: The liver is palpable at the right costal margin, but it is not tender on palpation at this time. EXTREMITIES: No cyanosis, clubbing or edema. LYMPHATICS: No peripheral lymphadenopathy. NEUROLOGICAL: Conscious, alert and oriented times three. No focal motor or sensory deficits. PSYCHIATRIC: Mood and affect appear normal. DIAGNOSTIC DATA CBC showed a white count of 2.9, hemoglobin 13.9, hematocrit 39.3, platelets 141 ,000. ANC is 2000. Chem panel totally normal except AST 36. CEA is 9.4, up from 9.3, and chromogranin A is 134, down from 158. ASSESSMENT 1. Stage IV pancreatic neuroendocrine tumor grade 2 with mass in the distal body of the pancreas with metastasis to the liver and lung by CT of the abdomen and pelvis done January 05, 2015. CT-guided biopsy of the liver mass done January 05, 2015 came back positive for well-differentiated neuroendocrine tumor with Ki-67 proliferation rate of 10% to 20%, consistent with intermediate grade well differentiated neuroendocrine tumor. Octreotide scan showed uptake in multiple lesions of the liver, but not in the pancreas or in the lungs or elsewhere. 5-hydroxyindoleacetic acid of the 24-hour urine was normal. Patient has been evaluated at [facility] with recommendation of treatment with Sandostatin, which was given between March 2015 through December 10, 2015, when her CT scan of the abdomen and pelvis revealed severe hepatomegaly with innumerable metastases throughout the liver, with evidence of progression. Patient started treatment with capecitabine and Temodar on January 11, 2016. She is actually tolerating the treatment very well, except for Temodar, which was stopped about two months ago. She is currently only on capecitabine. Her CEA increased from 7.3 to 9.3, and currently it is 9.4 without much rise. Chromogranin A dropped from 158 and currently 134. It seems her tumor markers for her neuroendocrine tumor are stable. I am planning to proceed with this cycle of capecitabine. I will see her again in a month with CBC, chem panel, CEA and chromogranin A. Patient started to feel better recently. I am planning to proceed with capecitabine and see her in a month with CBC, chem panel, CEA and chromogranin A. 2. Chemotherapy-induced leukopenia and neutropenia. Current white count is 2.9 , but ANC normal at 2000. We will continue to monitor. 3. Hypothyroidism on supplement. 4. Anxiety on Zoloft. PLAN: 1. Capecitabine 1300 mg twice daily for 14 days. 2. Patient to return in four weeks with CBC, chem panel, chromogranin A and CEA. 3. Patient is to contact us for any new concerns or complaints. MTDD
== END 2017-06-25 ==
LOC: ONC 09:16
PROVIDERS: ATTEND Internal Medicine Hematology
DX: C7A.8 Other malignant neuroendocrine tumors (principal); C78.7 Secondary malignant neoplasm of liver and intrahepatic bile duct; C78.00 Secondary malignant neoplasm of unspecified lung; D70.1 Agranulocytosis secondary to cancer chemotherapy; E03.9 Hypothyroidism, unspecified; R05 Cough; R10.11 Right upper quadrant pain; R53.1 Weakness; R53.83 Other fatigue
CPT/HCPCS: 36415; 82040; 82247; 82310; 82374; 82378; 82435; 82565; 82947; 84075; 84132; 84155; 84295; 84450; 84460; 84520; 85025; 86316; 99212

== ENCOUNTER 2017-08-31 09:57 | Outpatient (RCR) | payer OTHER, MEDICARE ==
[2017-06-27 10:30] VITALS: BP 133/72
[2017-06-27 10:43] LABS: PLATELET COUNT, AUTOMATED 154 K/uL (150-450)
[2017-07-06 14:35] VITALS: BP 125/73
--- NOTE | 2017-07-06 16:55 | ONCOLOGY FOLLOW UP NOTE ---
EVENT DATE: July 06, 2017 DIAGNOSES 1. 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 2. Hypothyroidism. 3. Anxiety. CHIEF COMPLAINT Patient is here today for followup of her metastatic neuroendocrine tumor of the pancreas. ONCOLOGY HISTORY The patient is a 67-year-old female. The patient is here today for followup of her pancreatic neuroendocrine tumor with hepatic metastasis. The patient is stable clinically. She has some cough and nasal discharge from her allergy. She has occasional nausea, vomiting and diarrhea. She has also right upper quadrant abdominal pain, especially on taking a breath. Hematologically, she is weak, tired and fatigued. PRESENTATION Food poisoning when she was in [place] in [place], with persistent nausea and vomiting, treated with antibiotic without improvement. She was also treated with metronidazole for P. hominis, which helped some, but she remains with persistent nausea. She also developed right upper quadrant abdominal pain. DIAGNOSTIC EVALUATION 1. Ultrasound of the right upper quadrant, done December 28, 2014. Did reveal ill-defined hypoechoic globular mass in the tail of the pancreas 3.3 x 2.8 cm, worrisome for pancreatic neoplasm. There appears to be numerous hepatic and splenic metastases. 2. CT abdomen and pelvis done January 05, 2015 did reveal 2.6 cm lesion within the distal pancreatic body, concerning for primary pancreatic malignancy. There was hepatic hypoattenuating lesions. There was right axillary mediastinal, subcarinal, hilar, periportal and left periaortic adenopathy suspicious for metastatic disease with several noncalcified less than 6 mm pulmonary nodules bilaterally, indeterminate for metastatic disease. 3. Octreotide scan done February 04, 2015 revealed findings consistent with multiple metastatic lesions in the liver. No definite uptake in the chest or elsewhere. 5-hydroxyindoleacetic acid in 24-hour urine specimen was normal. 4. Chromogranin A was elevated at 136. PROCEDURE 1. EGD done December 19, 2014 reveals stomach with histologic features consistent with reactive gastropathy. No active gastritis or Helicobacter pylori seen. 2. CT guided biopsy of the liver mass done January 07, 2015, came back positive for well differentiated neuroendocrine tumor Ki-67. Proliferation rate was 10% to 20%, consistent with GI intermediate grade (grade 2) well differentiated neuroendocrine tumor. PATHOLOGY Positive for intermediate grade, well differentiated, neuroendocrine tumor grade 2 with Ki-67 proliferation rate of 10% to 20%. TREATMENT 1. Patient started treatment with Sandostatin March 2015. 2. Patient started treatment with capecitabine and Temodar January 11, 2016 for progressive disease. HISTORY OF PRESENT ILLNESS Patient is here today for followup of her metastatic pancreatic neuroendocrine tumor with liver metastasis. Patient is doing fine currently. Apart from having cough with expectoration due to sinus problem, patient does not have any other problem. She denies any GI symptoms this time. PAST MEDICAL HISTORY 1. Insignificant except for cataract removal. 2. Hypothyroidism. 3. Anxiety. PAST SURGICAL HISTORY 1. In January 1990, the patient had partial hysterectomy. 2. In 1959, the patient had tonsillectomy. 3. She had cataract surgery between 2008 and 2009. SOCIAL HISTORY The patient is . She does not have biological children. 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 She has about twelve drinks per year. She denies any abuse of tobacco or illicit drugs. FAMILY HISTORY Father had lung cancer at the age of 72. CURRENT MEDICATIONS 1. Levothyroxine 125 mcg daily. 2. Sandostatin LAR 20 mg intramuscularly every month. 3. Zinc 50 mg daily. 4. Fish oil 1000 mg daily. 5. Calcium and vitamin D 1200 mg daily. 6. Zofran 4 mg three times daily. 7. Centrum multivitamin one tablet daily. ALLERGIES No known drug allergies. REVIEW OF SYSTEMS CONSTITUTIONAL: No appetite or weight change. No fever, chills or sweating. No recent infection. HEENT: Ears: No tinnitus or hearing problem. Nose: No nasal discharge or epistaxis. Throat: No sore throat or mouth ulcers. Eyes: No diplopia or visual changes. RESPIRATORY: No shortness of breath. She has cough with expectoration from sinus problem. No hemoptysis. CARDIOVASCULAR: No chest pain, orthopnea, or paroxysmal nocturnal dyspnea (PND) . No edema. No palpitations. GASTROINTESTINAL: No nausea or vomiting. No diarrhea or constipation. No change in bowel movements. No heartburn or swallowing difficulties. No abdominal pain. No jaundice. No hematemesis, melena or rectal bleeding. HEMATOLOGICAL: No bleeding or easy bruising. No weakness or fatigue. No enlarged lymph nodes. GENITOURINARY: No hematuria or dysuria. MUSCULOSKELETAL: No pain in the muscles, joints or bones. NEUROLOGICAL: No tingling or numbness in the hands or feet. No headaches or convulsions. She is weak, tired and fatigued. SKIN: No skin rash or lumps. PSYCHIATRIC: No anxiety or depression. PHYSICAL EXAMINATION GENERAL: Looks stable. Well-developed, well-nourished, and in no acute distress. VITAL SIGNS: Blood pressure 125/73, pulse 87 per minute, respirations 16 per minute, temperature 96.9, pulse ox 96% on room air. HEENT: Head: Atraumatic. No sinus tenderness to palpation. Eyes: No icterus or conjunctivitis. Mouth and throat: No oral thrush or mucositis. NECK: Supple. No cervical or supraclavicular lymphadenopathy. LUNGS: Clear to auscultation and percussion bilaterally. HEART: Regular rate and rhythm. No gallops, murmurs, clicks or rubs. ABDOMEN: The liver is palpable at the right costal margin, but it is not tender on palpation at this time. EXTREMITIES: No cyanosis, clubbing or edema. LYMPHATICS: No peripheral lymphadenopathy. NEUROLOGICAL: Conscious, alert and oriented times three. No focal motor or sensory deficits. PSYCHIATRIC: Mood and affect appear normal. DIAGNOSTIC DATA CBC showed a white count of 2.5, hemoglobin 14.2, hematocrit 40%, platelets 154, 000. Chem panel totally normal except carbon dioxide 20, blood sugar 113, AST 41. CEA is 12.2, which is up from 9.4 and chromogranin A is 142, which is up from 134. ASSESSMENT 1. Stage IV pancreatic neuroendocrine tumor grade 2 with mass in the distal body of the pancreas with metastasis to the liver and lung by CT abdomen and pelvis done January 05, 2015. CT-guided biopsy of the liver mass done January 05, 2015 came back positive for well-differentiated neuroendocrine tumor with Ki-67 proliferation rate of 10% to 20%, consistent with intermediate grade well-differentiated neuroendocrine tumor. Octreotide scan showed uptake in multiple lesions of the liver, but not in the pancreas or in the lung or elsewhere. 5-hydroxyindoleacetic acid of the 24-hour urine sample was normal. Patient has been evaluated at [facility] with recommendation of treatment with Sandostatin, which was given between March 2015 through December 10, 2015, when her CT scan of the abdomen and pelvis revealed severe hepatomegaly with innumerable metastases throughout the liver, with evidence of progression. Patient started treatment with capecitabine and Temodar January 11, 2016. She tolerated treatment very well, except for Temodar, which was stopped about three months ago. She is currently for the last three months using only capecitabine. Her CEA increased from 7.3 to 9.3 to 9.4, and currently 12.2. Chromogranin A is fluctuant. It was 158, dropped to 134 and currently 142. Given the rise of the CEA recently I advised the patient to resume back her Temodar besides the capecitabine, and if the tumor markers with CEA and chromogranin continue to rise, then we will get a scan and we will think about changing her treatment. I explained that to the patient. She is agreeable with the plan of management. Patient will return in four weeks with CBC, chem panel, CEA and chromogranin A for further evaluation and management. 2. Chemotherapy-induced leukopenia and neutropenia. Current white count is 2.5. We will continue to monitor. 3. Hypothyroidism on supplement. 4. Anxiety on Zoloft. PLAN: 1. Capecitabine 1300 mg twice daily for 14 days and Temodar 360 mg for the last five days of days 10-14. 2. Patient to return in four weeks with CBC, chem panel, chromogranin A and CEA. 3. Patient is to contact us for any new concern or complaints. MTDD
[2017-07-25 10:42] VITALS: BP 128/82
[2017-07-25 11:10] LABS: PLATELET COUNT, AUTOMATED 158 K/uL (150-450)
[2017-08-03 14:32] VITALS: BP 112/75
--- NOTE | 2017-08-03 21:53 | ONCOLOGY FOLLOW UP NOTE ---
EVENT DATE: August 03, 2017 DIAGNOSES 1. 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 2. Hypothyroidism. 3. Anxiety. CHIEF COMPLAINT Patient is here today for followup of her metastatic neuroendocrine tumor of the pancreas. ONCOLOGY HISTORY The patient is a 67-year-old female. The patient is here today for followup of her pancreatic neuroendocrine tumor with hepatic metastasis. The patient is stable clinically. She has some cough and nasal discharge from her allergy. She has occasional nausea, vomiting and diarrhea. She has also right upper quadrant abdominal pain, especially on taking a breath. Hematologically, she is weak, tired and fatigued. PRESENTATION Food poisoning when she was in [place] in [place], with persistent nausea and vomiting, treated with antibiotic without improvement. She was also treated with metronidazole for P. hominis, which helped some, but she remains with persistent nausea. She also developed right upper quadrant abdominal pain. DIAGNOSTIC EVALUATION 1. Ultrasound of the right upper quadrant, done December 28, 2014. Did reveal ill-defined hypoechoic globular mass in the tail of the pancreas 3.3 x 2.8 cm, worrisome for pancreatic neoplasm. There appears to be numerous hepatic and splenic metastases. 2. CT abdomen and pelvis done January 05, 2015 did reveal 2.6 cm lesion within the distal pancreatic body, concerning for primary pancreatic malignancy. There was hepatic hypoattenuating lesions. There was right axillary mediastinal, subcarinal, hilar, periportal and left periaortic adenopathy suspicious for metastatic disease with several noncalcified less than 6 mm pulmonary nodules bilaterally, indeterminate for metastatic disease. 3. Octreotide scan done February 04, 2015 revealed findings consistent with multiple metastatic lesions in the liver. No definite uptake in the chest or elsewhere. 5-hydroxyindoleacetic acid in 24-hour urine specimen was normal. 4. Chromogranin A was elevated at 136. PROCEDURE 1. EGD done December 19, 2014 reveals stomach with histologic features consistent with reactive gastropathy. No active gastritis or Helicobacter pylori seen. 2. CT guided biopsy of the liver mass done January 07, 2015, came back positive for well differentiated neuroendocrine tumor Ki-67. Proliferation rate was 10% to 20%, consistent with GI intermediate grade (grade 2) well differentiated neuroendocrine tumor. PATHOLOGY Positive for intermediate grade, well differentiated, neuroendocrine tumor grade 2 with Ki-67 proliferation rate of 10% to 20%. TREATMENT 1. Patient started treatment with Sandostatin March 2015. 2. Patient started treatment with capecitabine and Temodar January 11, 2016 for progressive disease. HISTORY OF PRESENT ILLNESS Patient is here today for followup of her metastatic pancreatic neuroendocrine tumor with liver metastasis. Patient is doing very well currently. She is totally asymptomatic this visit. PAST MEDICAL HISTORY 1. Insignificant except for cataract removal. 2. Hypothyroidism. 3. Anxiety. PAST SURGICAL HISTORY 1. In January 1990, the patient had partial hysterectomy. 2. In 1959, the patient had tonsillectomy. 3. She had cataract surgery between 2008 and 2009. SOCIAL HISTORY The patient is . She does not have biological children. 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 She has about twelve drinks per year. She denies any abuse of tobacco or illicit drugs. FAMILY HISTORY Father had lung cancer at the age of 72. CURRENT MEDICATIONS 1. Levothyroxine 125 mcg daily. 2. Sandostatin LAR 20 mg intramuscularly every month. 3. Zinc 50 mg daily. 4. Fish oil 1000 mg daily. 5. Calcium and vitamin D 1200 mg daily. 6. Zofran 4 mg three times daily. 7. Centrum multivitamin one tablet daily. ALLERGIES No known drug allergies. REVIEW OF SYSTEMS CONSTITUTIONAL: No appetite or weight change. No fever, chills or sweating. No recent infection. HEENT: Ears: No tinnitus or hearing problem. Nose: No nasal discharge or epistaxis. Throat: No sore throat or mouth ulcers. Eyes: No diplopia or visual changes. RESPIRATORY: No shortness of breath. She has cough with expectoration from sinus problem. No hemoptysis. CARDIOVASCULAR: No chest pain, orthopnea, or paroxysmal nocturnal dyspnea (PND) . No edema. No palpitations. GASTROINTESTINAL: No nausea or vomiting. No diarrhea or constipation. No change in bowel movements. No heartburn or swallowing difficulties. No abdominal pain. No jaundice. No hematemesis, melena or rectal bleeding. HEMATOLOGICAL: No bleeding or easy bruising. No weakness or fatigue. No enlarged lymph nodes. GENITOURINARY: No hematuria or dysuria. MUSCULOSKELETAL: No pain in the muscles, joints or bones. NEUROLOGICAL: No tingling or numbness in the hands or feet. No headaches or convulsions. She is weak, tired and fatigued. SKIN: No skin rash or lumps. PSYCHIATRIC: No anxiety or depression. PHYSICAL EXAMINATION GENERAL: Looks stable. Well-developed, well-nourished, and in no acute distress. VITAL SIGNS: Blood pressure 112/75, pulse 81 per minute, respirations 16 per minute, temperature 97.1, pulse ox 94% on room air. HEENT: Head: Atraumatic. No sinus tenderness to palpation. Eyes: No icterus or conjunctivitis. Mouth and throat: No oral thrush or mucositis. NECK: Supple. No cervical or supraclavicular lymphadenopathy. LUNGS: Clear to auscultation and percussion bilaterally. HEART: Regular rate and rhythm. No gallops, murmurs, clicks or rubs. ABDOMEN: The liver is palpable at the right costal margin, but it is not tender on palpation at this time. EXTREMITIES: No cyanosis, clubbing or edema. LYMPHATICS: No peripheral lymphadenopathy. NEUROLOGICAL: Conscious, alert and oriented times three. No focal motor or sensory deficits. PSYCHIATRIC: Mood and affect appear normal. DIAGNOSTIC DATA CBC showed a white count of 3.2, hemoglobin 13.7, hematocrit 39.5, platelets 158 ,000. Chem panel is totally normal except AST 54. CEA is 17.8 which is up from 12.2. Chromogranin A is 142. ASSESSMENT 1. Stage IV pancreatic neuroendocrine tumor grade 2 with mass in the distal body of the pancreas with metastasis to the liver and lung by CT abdomen and pelvis done January 05, 2015. CT-guided biopsy of the liver mass done January 05, 2015 came back positive for well-differentiated neuroendocrine tumor with Ki-67 proliferation rate of 10% to 20%, consistent with intermediate grade well-differentiated neuroendocrine tumor. Octreotide scan showed uptake in multiple lesions of the liver, but not in the pancreas or in the lung or elsewhere. 5-hydroxyindoleacetic acid of the 24-hour urine sample was normal. Patient has been evaluated at [facility] with recommendation of treatment with Sandostatin, which was given between March 2015 through December 10, 2015, when her CT scan of the abdomen and pelvis revealed severe hepatomegaly with innumerable metastases throughout the liver, with evidence of progression. Patient started treatment with capecitabine and Temodar January 11, 2016. She tolerated treatment very well, except for Temodar, which was stopped for about four months ago. She is using capecitabine for the last four months, except a few days ago when she started Temodar. Her CEA increased from 7.3 to 9.3 to 9.4, to 12.2, and currently it is 17.8. Chromogranin A was fluctuant. It was 158, dropped to 134 and then rahul up to 142. Patient would like to try Temodar again with capecitabine to see if this will make the control of her markers. I am planning to see her in four weeks after this cycle with Temodar and capecitabine, and if adding Temodar will decrease her marker next time, then we will continue the same treatment. If the marker continues to rise despite adding Temodar then we will look for a different alternative for her treatment. I explained that to the patient. She is agreeable with the plan of management. So this cycle will be a combination of capecitabine and Temodar and I will see her in four weeks with CBC, chem panel, CEA and chromogranin A. 2. Chemotherapy-induced leukopenia and neutropenia. Her current white count is 3.2. Hemoglobin and platelet count are normal. We will continue to monitor. 3. Hypothyroidism, on supplement. 4. Anxiety, on Zoloft. PLAN: 1. Capecitabine 1300 mg twice daily for 14 days, and Temodar 360 mg for the last five days of days from day 10-14. 2. Patient to return in four weeks with CBC, chem panel, chromogranin A and CEA. 3. Patient is to contact us for any new concern or complaints. MTDD
[2017-08-22 10:49] LABS: PLATELET COUNT, AUTOMATED 105 K/uL (150-450)
[2017-08-22 10:57] VITALS: BP 112/79
[2017-08-31 10:02] VITALS: BP 119/75
--- NOTE | 2017-08-31 17:19 | ONCOLOGY FOLLOW UP NOTE ---
EVENT DATE: August 31, 2017 DIAGNOSES 1. 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 2. Hypothyroidism. 3. Anxiety. CHIEF COMPLAINT Patient is here today for followup of her neuroendocrine tumor of the pancreas with liver metastasis. ONCOLOGY HISTORY The patient is a 67-year-old female. The patient is here today for followup of her pancreatic neuroendocrine tumor with hepatic metastasis. The patient is stable clinically. She has some cough and nasal discharge from her allergy. She has occasional nausea, vomiting and diarrhea. She has also right upper quadrant abdominal pain, especially on taking a breath. Hematologically, she is weak, tired and fatigued. PRESENTATION Food poisoning when she was in [place] in [place], with persistent nausea and vomiting, treated with antibiotic without improvement. She was also treated with metronidazole for P. hominis, which helped some, but she remains with persistent nausea. She also developed right upper quadrant abdominal pain. DIAGNOSTIC EVALUATION 1. Ultrasound of the right upper quadrant, done December 28, 2014. Did reveal ill-defined hypoechoic globular mass in the tail of the pancreas 3.3 x 2.8 cm, worrisome for pancreatic neoplasm. There appears to be numerous hepatic and splenic metastases. 2. CT abdomen and pelvis done January 05, 2015 did reveal 2.6 cm lesion within the distal pancreatic body, concerning for primary pancreatic malignancy. There was hepatic hypoattenuating lesions. There was right axillary mediastinal, subcarinal, hilar, periportal and left periaortic adenopathy suspicious for metastatic disease with several noncalcified less than 6 mm pulmonary nodules bilaterally, indeterminate for metastatic disease. 3. Octreotide scan done February 04, 2015 revealed findings consistent with multiple metastatic lesions in the liver. No definite uptake in the chest or elsewhere. 5-hydroxyindoleacetic acid in 24-hour urine specimen was normal. 4. Chromogranin A was elevated at 136. PROCEDURE 1. EGD done December 19, 2014 reveals stomach with histologic features consistent with reactive gastropathy. No active gastritis or Helicobacter pylori seen. 2. CT guided biopsy of the liver mass done January 07, 2015, came back positive for well differentiated neuroendocrine tumor Ki-67. Proliferation rate was 10% to 20%, consistent with GI intermediate grade (grade 2) well differentiated neuroendocrine tumor. PATHOLOGY Positive for intermediate grade, well differentiated, neuroendocrine tumor grade 2 with Ki-67 proliferation rate of 10% to 20%. TREATMENT 1. Patient started treatment with Sandostatin March 2015. 2. Patient started treatment with capecitabine and Temodar January 11, 2016 for progressive disease. Patient stopped treatment with capecitabine and Temodar on August 31, 2017 because of progressive disease. HISTORY OF PRESENT ILLNESS Patient is here today for followup of her pancreatic neuroendocrine tumor with liver metastasis. She is doing very well currently. She is feeling very well in herself. She denies any complaints today. PAST MEDICAL HISTORY 1. Insignificant except for cataract removal. 2. Hypothyroidism. 3. Anxiety. PAST SURGICAL HISTORY 1. In January 1990, the patient had partial hysterectomy. 2. In 1959, the patient had tonsillectomy. 3. She had cataract surgery between 2008 and 2009. SOCIAL HISTORY The patient is . She does not have biological children. 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 She has about twelve drinks per year. She denies any abuse of tobacco or illicit drugs. FAMILY HISTORY Father had lung cancer at the age of 72. CURRENT MEDICATIONS 1. Levothyroxine 125 mcg daily. 2. Sandostatin LAR 20 mg intramuscularly every month. 3. Zinc 50 mg daily. 4. Fish oil 1000 mg daily. 5. Calcium and vitamin D 1200 mg daily. 6. Zofran 4 mg three times daily. 7. Centrum multivitamin one tablet daily. ALLERGIES No known drug allergies. REVIEW OF SYSTEMS CONSTITUTIONAL: No appetite or weight change. No fever, chills or sweating. No recent infection. HEENT: Ears: No tinnitus or hearing problem. Nose: No nasal discharge or epistaxis. Throat: No sore throat or mouth ulcers. Eyes: No diplopia or visual changes. RESPIRATORY: No shortness of breath. She has cough with expectoration from sinus problem. No hemoptysis. CARDIOVASCULAR: No chest pain, orthopnea, or paroxysmal nocturnal dyspnea (PND) . No edema. No palpitations. GASTROINTESTINAL: No nausea or vomiting. No diarrhea or constipation. No change in bowel movements. No heartburn or swallowing difficulties. No abdominal pain. No jaundice. No hematemesis, melena or rectal bleeding. HEMATOLOGICAL: No bleeding or easy bruising. No weakness or fatigue. No enlarged lymph nodes. GENITOURINARY: No hematuria or dysuria. MUSCULOSKELETAL: No pain in the muscles, joints or bones. NEUROLOGICAL: No tingling or numbness in the hands or feet. No headaches or convulsions. She is weak, tired and fatigued. SKIN: No skin rash or lumps. PSYCHIATRIC: No anxiety or depression. PHYSICAL EXAMINATION GENERAL: Looks stable. Well-developed, well-nourished, and in no acute distress. VITAL SIGNS: Blood pressure 119/75, pulse 92 per minute, respirations 16 per minute, temperature 98.2, pulse ox 92% on room air. HEENT: Head: Atraumatic. No sinus tenderness to palpation. Eyes: No icterus or conjunctivitis. Mouth and throat: No oral thrush or mucositis. NECK: Supple. No cervical or supraclavicular lymphadenopathy. LUNGS: Clear to auscultation and percussion bilaterally. HEART: Regular rate and rhythm. No gallops, murmurs, clicks or rubs. ABDOMEN: The liver is palpable at the right costal margin, but it is not tender on palpation at this time. EXTREMITIES: No cyanosis, clubbing or edema. LYMPHATICS: No peripheral lymphadenopathy. NEUROLOGICAL: Conscious, alert and oriented times three. No focal motor or sensory deficits. PSYCHIATRIC: Mood and affect appear normal. DIAGNOSTIC DATA CBC showed a white count of 2.1, hemoglobin 13.6, hematocrit 38.6, platelets 105 ,000. ANC 1.4. CEA is 24.4 which is up from 17.8 and chromogranin A is 336, up from 142. ASSESSMENT 1. Stage IV neuroendocrine tumor grade 2 with mass in the distal body of the pancreas with metastasis to the liver and lung by CT abdomen and pelvis done January 05, 2015. CT-guided biopsy of one of the liver masses done December came back positive for well-differentiated neuroendocrine tumor with Ki- 67 proliferation rate of 10% to 20%, consistent with intermediate grade well- differentiated neuroendocrine tumor. Octreotide scan showed uptake in multiple lesions of the liver, but not in the pancreas or in the lung or elsewhere. 5- hydroxyindoleacetic acid of the 24-hour urine sample was normal. Patient has been evaluated at [facility] with recommendation of treatment with Sandostatin, which was given between March 2015 through December 10, 2015, when her CT scan of the abdomen and pelvis revealed severe hepatomegaly with innumerable metastases throughout the liver, with evidence of progression. Patient started treatment with capecitabine and Temodar January 11, 2016. She tolerated treatment very well, except for Temodar, which was stopped for about four months and the patient used capecitabine alone during these four months, and with her rise of CEA from 7.3 to 9.3 to 9.4 to 12.2 to 17.8. Temodar was reintroduced again in her treatment, but she continues to have rising of her tumor marker. Her current CEA is 24.4, up from 17.8 and current chromogranin A is 336, up from 142. I am planning to stop capecitabine and Temodar. I am planning to see her on September 28, 2017 as per her request as the patient is leaving town for a trip and I will check her CBC, chem panel, chromogranin A and CEA and CT chest, abdomen and pelvis with IV and oral contrast at that time. I will try to see another different kind of chemotherapy to be given to her at that time. I explained that to the patient, she is agreeable with the plan of management. 2. Chemotherapy-induced leukopenia and neutropenia. Her current white count is 2.1 and ANC 1.4. Patient will not receive chemotherapy for the next three to four weeks, and hopefully she will recover by that time. 3. Chemotherapy-induced thrombocytopenia. Current platelet count 105,000. We will continue to monitor. No hematological intervention is required. 4. Hypothyroidism, on supplement. 5. Anxiety, on Zoloft. PLAN: 1. Stop capecitabine and Temodar. 2. Patient to return on September 28, 2017 with CBC, chem panel, CEA, chromogranin A and CT chest, abdomen and pelvis with IV and oral contrast. 3. Patient is to contact us for any new concerns or complaints. MTDD
== END 2017-09-24 ==
LOC: ONC 09:57
PROVIDERS: ATTEND Internal Medicine Hematology
DX: C25.9 Malignant neoplasm of pancreas, unspecified (principal); C78.7 Secondary malignant neoplasm of liver and intrahepatic bile duct; C78.00 Secondary malignant neoplasm of unspecified lung; D70.2 Other drug-induced agranulocytosis; E03.9 Hypothyroidism, unspecified; R53.1 Weakness; R53.83 Other fatigue; R05 Cough; R11.2 Nausea with vomiting, unspecified; R19.7 Diarrhea, unspecified
CPT/HCPCS: 36415; 82040; 82247; 82310; 82374; 82378; 82435; 82565; 82947; 84075; 84132; 84155; 84295; 84450; 84460; 84520; 85025; 86316; 99212

== ENCOUNTER → 2017-12-17 | Outpatient (CLI) | payer MEDICARE ==
[~2017-12-17] MED LIST changes: +DOCU-416 PO; +MIRA25TA PO; +OXYC-854 PO
== END ==
LOC: LAB 15:56
PROVIDERS: ATTEND Physician Assistant
DX: R30.0 Dysuria (principal); N39.0 Urinary tract infection, site not specified
CPT/HCPCS: 87088

== ENCOUNTER 2017-12-22 13:33 | Outpatient (RCR) | payer MEDICARE, OTHER ==
[2017-09-26 08:25] LABS: PLATELET COUNT, AUTOMATED 176 K/uL (150-450)
--- NOTE | 2017-09-26 12:01 | RADIOLOGY IMAGING REPORT ---
FACILITY: [facility] - [place], [place] PATIENT NAME: Maria L Moralez : 1950 MR: [id number] V: [id number] EXAM DATE: ORDERING PHYSICIAN: THALIA CLARK TECHNOLOGIST: Location: [facility] [place] Patient: Maria L Moralez : 1950 Visit/Account:[id number] Date of Sevice: 09/26/2017 CHEST/AB/PELV W/CONTRAST HISTORY: Pancreatic cancer with metastases ADDITIONAL HISTORY: None. TECHNIQUE: Following administration of IV contrast axial images acquired through the chest abdomen a nd pelvis during the portal venous phase. Coronal and sagittal reformatting was also performed. Dose Lowering Technique One of the following dose optimization techniques was utilized in the performance of this exam: Autom ated exposure control; adjustment of the mA and/or kV according to the patient's size; or use of an i terative reconstruction technique. Specific details can be referenced in the facility's radiology C T exam operational policy. CONTRAST: 75 mL Isovue-370 COMPARISON: Jun 25 2015 and December 10, 2015 FINDINGS: CHEST: Lungs/Pleura: There is linear scarring in the lung bases Mediastinum/lymph nodes: Negative. Heart/vessels: Negative. Bones/soft tissues: Gentle S-shaped scoliosis of the thoracic spine. No aggressive bone lesions are seen ABDOMEN AND PELVIS: Hepatobiliary: Hepatomegaly again noted however the liver is much smaller when compared to the prior study, now measuring 21 cm in length as opposed to 27.4 cm in length.. There is a lobular contour t o the liver. There has been a dramatic reduction in the number of metastatic foci within the liver, particularly w ithin the left lobe where largest mass measures 2.2 x 1.7 cm. The largest mass from left lobe previo usly measured 3.6 x 2.6 cm. Within the right lobe there are larger more confluent masses although th e actual number of masses has dramatically decreased. The largest confluent mass now measures approx imately 8.2 x 9 cm x 9.2. The largest mass in the right lobe previously measured 7.1 x 6.6 x 6.2 cm. The gallbladder appears contracted Spleen: Spleen appears homogeneous at this time Pancreas: There appears been further resection of the distal pancreas when compared to the prior stud y with only the uncinate process, head and proximal body remaining. There is no evidence of pancreat ic ductal dilatation Study Adrenals: Negative. Kidneys ureters and bladder : Negative. Genitalia: Hysterectomy GI: Negative. Vessels/spaces/nodes: Previously noted left periaortic lymph nodes have decreased in size. There ar e however new enlarged periportal lymph nodes with a bilingual inside sales representative lymph node measuring 2.6 x 2 cm Bones/soft tissues: There Is a 6 mm sclerotic focus seen along the superior right side of the L5 vert ebral body not present previously Additional findings: None pertinent. IMPRESSION: There is hepatomegaly present although the liver is much smaller when compared to the prior study. T here is also been a dramatic reduction in the number of metastatic foci within the liver, particularl y within the left lobe.. Although the number of masses within the right lobe has also dramatically d ecreased there are now larger more confluent masses as detailed above. There is been further resection of the distal pancreas compared to the prior study Previously noted periaortic lymph nodes have decreased in size however there are now enlarged peripor devaughn lymph nodes as described above There is a new six moment or sclerotic focus along the superior right side of L5 vertebral body. Thi s could conceivably represent a tiny metastatic focus due to the interval change. Report Dictated By: Shadia Weiner MD at 09/26/2017 10:38 AM Report E-Signed By: Shadia Weiner MD at 09/26/2017 11:56 AM WSN:[id number]
[2017-09-28 10:39] VITALS: BP 116/74
--- NOTE | 2017-09-28 17:17 | EL-TARABILY ONCOLOGY NOTE ---
EVENT DATE: September 28, 2017 DIAGNOSES 1. 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 2. Hypothyroidism. 3. Anxiety. CHIEF COMPLAINT Patient is here today for followup of her neuroendocrine tumor of the pancreas with liver metastasis. ONCOLOGY HISTORY The patient is a 67-year-old female. The patient is here today for followup of her pancreatic neuroendocrine tumor with hepatic metastasis. The patient is stable clinically. She has some cough and nasal discharge from her allergy. She has occasional nausea, vomiting, and diarrhea. She has also right upper quadrant abdominal pain, especially on taking a breath. Hematologically, she is weak, tired, and fatigued. PRESENTATION Food poisoning when she was in [place] in August 2014 with persistent nausea and vomiting, treated with antibiotic without improvement. She was also treated with metronidazole for P. hominis which helped some, but she remains with persistent nausea. She also developed right upper quadrant abdominal pain. DIAGNOSTIC EVALUATION 1. Ultrasound of the right upper quadrant done December 28, 2014, did reveal ill-defined hypoechoic globular mass in the tail of the pancreas, 3.3 x 2.8 cm, worrisome for pancreatic neoplasm. There appears to be numerous hepatic and splenic metastases. 2. CT abdomen and pelvis done January 05, 2015, did reveal 2.6 cm lesion within the distal pancreatic body, concerning for primary pancreatic malignancy. There were hepatic hypoattenuating lesions. There was right axillary mediastinal, subcarinal, hilar, periportal, and left periaortic adenopathy suspicious for metastatic disease with several noncalcified, less than 6 mm pulmonary nodules bilaterally, indeterminate for metastatic disease. 3. Octreotide scan done February 04, 2015, revealed findings consistent with multiple metastatic lesions in the liver. No definite uptake in the chest or elsewhere. 5-hydroxyindoleacetic acid in 24-hour urine specimen was normal. 4. Chromogranin A was elevated at 136. PROCEDURES 1. EGD done December 19, 2014, revealed stomach with histologic features consistent with reactive gastropathy. No active gastritis or Helicobacter pylori seen. 2. CT-guided biopsy of the liver mass done January 07, 2015, came back positive for well-differentiated neuroendocrine tumor. Ki-67 proliferation rate was 10% to 20%, consistent with GI intermediate grade (grade 2) well- differentiated neuroendocrine tumor. PATHOLOGY Positive for intermediate grade, well-differentiated neuroendocrine tumor grade 2 with Ki-67 proliferation rate of 10% to 20%. TREATMENT 1. Patient started treatment with Sandostatin March 2015. 2. Patient started treatment with capecitabine and Temodar January 11, 2016, for progressive disease. Patient stopped treatment with capecitabine and Temodar on August 31, 2017, because of progressive disease. HISTORY OF PRESENT ILLNESS Patient is here today for followup of her pancreatic neuroendocrine tumor with liver metastasis. She is doing fine currently. She feels very well in herself , and she is totally asymptomatic. PAST MEDICAL HISTORY Insignificant except for: 1. Cataract removal. 2. Hypothyroidism. 3. Anxiety. PAST SURGICAL HISTORY 1. In January 1990, the patient had partial hysterectomy. 2. In 1959, the patient had tonsillectomy. 3. She had cataract surgeries between 2008 and 2009. SOCIAL HISTORY The patient is . She does not have biological children. 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 She has about 12 drinks per year. She denies any abuse of tobacco or illicit drugs. FAMILY HISTORY Father had lung cancer at the age of 72. CURRENT MEDICATIONS 1. Levothyroxine 125 mcg daily. 2. Sandostatin LAR 20 mg intramuscularly every month. 3. Zinc 50 mg daily. 4. Fish oil 1000 mg daily. 5. Calcium and vitamin D 1200 mg daily. 6. Zofran 4 mg three times daily. 7. Centrum multivitamin one tablet daily. ALLERGIES No known drug allergies. REVIEW OF SYSTEMS CONSTITUTIONAL: No appetite or weight change. No fever, chills, or sweating. No recent infection. HEENT: Ears: No tinnitus or hearing problem. Nose: No nasal discharge or epistaxis. Throat: No sore throat or mouth ulcers. Eyes: No diplopia or visual changes. RESPIRATORY: No shortness of breath. She has cough with expectoration from sinus problem. No hemoptysis. CARDIOVASCULAR: No chest pain, orthopnea, or PND. No edema. No palpitations. GASTROINTESTINAL: No nausea or vomiting. No diarrhea or constipation. No change in bowel movements. No heartburn or swallowing difficulties. No abdominal pain. No jaundice. No hematemesis, melena, or rectal bleeding. HEMATOLOGICAL: No bleeding or easy bruising. No weakness or fatigue. No enlarged lymph nodes. GENITOURINARY: No hematuria or dysuria. MUSCULOSKELETAL: No pain in the muscles, joints, or bones. NEUROLOGICAL: No tingling or numbness in the hands or feet. No headaches or convulsions. She is weak, tired, and fatigued. SKIN: No skin rash or lumps. PSYCHIATRIC: No anxiety or depression. PHYSICAL EXAMINATION GENERAL: Looks stable. Well developed, well nourished, and in no acute distress. VITAL SIGNS: Blood pressure 116/74, pulse 77 per minute, respirations 16 per minute, temperature 97.2, pulse ox 93% on room air. HEENT: Head: Atraumatic. No sinus tenderness to palpation. Eyes: No icterus or conjunctivitis. Mouth and throat: No oral thrush or mucositis. NECK: Supple. No cervical or supraclavicular lymphadenopathy. LUNGS: Clear to auscultation and percussion bilaterally. HEART: Regular rate and rhythm. No gallops, murmurs, clicks, or rubs. ABDOMEN: The liver is palpable at the right costal margin, but it is not tender on palpation at this time. EXTREMITIES: No cyanosis, clubbing, or edema. LYMPHATICS: No peripheral lymphadenopathy. NEUROLOGICAL: Conscious, alert, and oriented times three. No focal motor or sensory deficits. PSYCHIATRIC: Mood and affect appear normal. DIAGNOSTIC DATA CBC showed white count 2.7, hemoglobin 14.1, hematocrit 40.1, platelets 176, 000. Chem panel totally normal except AST 89. Chromogranin A is pending, but CEA is 40.4 which is up from 24.4. ASSESSMENT 1. Stage IV neuroendocrine tumor grade 2 with mass in the distal body of the pancreas with metastases to the liver and lung by CT abdomen and pelvis done January 05, 2015. CT-guided biopsy of the liver masses done January 05, 2015 , came back positive for well-differentiated neuroendocrine tumor with Ki-67 proliferation rate of 10% to 20%, consistent with intermediate grade, well- differentiated neuroendocrine tumor. Octreotide scan showed uptake in multiple lesions of the liver, but not in the pancreas or in the lung or elsewhere. 5- hydroxyindoleacetic acid in 24-hour urine sample was normal. Patient has been evaluated at the [facility] with recommendation of treatment with Sandostatin, which was given between March 2015 through December 10, 2015, when her CT scan of the abdomen and pelvis revealed severe hepatomegaly with innumerable metastases throughout the liver with evidence of progression. Patient started treatment with capecitabine and Temodar January 11, 2016. She tolerated the treatment very well except for Temodar which was stopped for about four months, and the patient used capecitabine alone during these four months, but her CEA rahul from 7.3 to 9.3 to 9.4 to 12.2 to 17.8 to 24.4 and currently 40.4. Temodar was introduced again in her treatment, but she continues to have rising of her CEA and chromogranin A. Her last chromogranin A was 336, up from 142, but her level for this visit is still pending. I talked to the patient today regarding further management. With her leukopenia/neutropenia, I do not think chemotherapy will be a good idea, so I told her we are going to check her previous biopsy specimen for bdl-1 and microsatellite instability high, and if those tests do come back positive, patient could be a candidate for checkpoint inhibitor therapy with Keytruda. Patient was excited about this option because she does not want to have chemotherapy again. If those tests would come back negative for eligibility for checkpoint inhibitors, then we will consider either chemotherapy with carboplatin and etoposide versus inclusion in a clinical trial. I will see her in two weeks from now with CBC, chemistry panel, chromogranin A, and CEA. In the meantime, we will ask the pathologist to run the test for bdl-1 and microsatellite instability high. 2. Chemotherapy-induced leukopenia. Current white count 2.7. Will continue to monitor. 3. Chemotherapy-induced thrombocytopenia. Current platelet count 176,000. Will continue to monitor. 4. Hypothyroidism, on supplement. 5. Anxiety, on Zoloft. PLAN 1, Ask the pathologist to run bdl-1 and microsatellite instability high from her biopsy specimen. 2. Patient to return in two weeks with CBC, chem panel, CEA, chromogranin A, and CEA. 3. Patient is to contact us for any new concern or complaints. 4. CT chest, abdomen, and pelvis done on the September showed hepatomegaly despite the fact the liver is smaller when compared to the prior study. There was also a dramatic reduction in the number of metastatic foci within the liver, particularly within the left lobe, although the number of masses within the right lobe also dramatically decreased. There are new, large , more confluent masses in the liver. Previously noted periaortic lymph nodes have decreased. However, there are now enlarged periportal lymph nodes. There is a new sclerotic focus along the superior right side of lumbar-5 vertebral body which could represent a metastatic focus. This means that the patient has progression despite the fact of her initial response to chemotherapy. MTDD
[2017-10-09 08:32] VITALS: BP 133/83
[2017-10-09 08:47] LABS: PLATELET COUNT, AUTOMATED 165 K/uL (150-450)
[2017-10-13 09:55] VITALS: BP 126/84
--- NOTE | 2017-10-13 12:02 | EL-TARABILY ONCOLOGY NOTE ---
EVENT DATE: October 13, 2017 DIAGNOSES 1. 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 2. Hypothyroidism. 3. Anxiety. CHIEF COMPLAINT Patient is here today for followup of her neuroendocrine tumor of the pancreas with liver metastasis. ONCOLOGY HISTORY The patient is a 67-year-old female. The patient is here today for followup of her pancreatic neuroendocrine tumor with hepatic metastasis. The patient is stable clinically. She has some cough and nasal discharge from her allergy. She has occasional nausea, vomiting, and diarrhea. She has also right upper quadrant abdominal pain, especially on taking a breath. Hematologically, she is weak, tired, and fatigued. PRESENTATION Food poisoning when she was in [place] in August 2014 with persistent nausea and vomiting, treated with antibiotic without improvement. She was also treated with metronidazole for P. hominis which helped some, but she remains with persistent nausea. She also developed right upper quadrant abdominal pain. DIAGNOSTIC EVALUATION 1. Ultrasound of the right upper quadrant done December 28, 2014, did reveal ill-defined hypoechoic globular mass in the tail of the pancreas, 3.3 x 2.8 cm, worrisome for pancreatic neoplasm. There appears to be numerous hepatic and splenic metastases. 2. CT abdomen and pelvis done January 05, 2015, did reveal 2.6 cm lesion within the distal pancreatic body, concerning for primary pancreatic malignancy. There were hepatic hypoattenuating lesions. There was right axillary mediastinal, subcarinal, hilar, periportal, and left periaortic adenopathy suspicious for metastatic disease with several noncalcified, less than 6 mm pulmonary nodules bilaterally, indeterminate for metastatic disease. 3. Octreotide scan done February 04, 2015, revealed findings consistent with multiple metastatic lesions in the liver. No definite uptake in the chest or elsewhere. 5-hydroxyindoleacetic acid in 24-hour urine specimen was normal. 4. Chromogranin A was elevated at 136. PROCEDURES 1. EGD done December 19, 2014, revealed stomach with histologic features consistent with reactive gastropathy. No active gastritis or Helicobacter pylori seen. 2. CT-guided biopsy of the liver mass done January 07, 2015, came back positive for well-differentiated neuroendocrine tumor. Ki-67 proliferation rate was 10% to 20%, consistent with GI intermediate grade (grade 2) well- differentiated neuroendocrine tumor. PATHOLOGY Positive for intermediate grade, well-differentiated neuroendocrine tumor grade 2 with Ki-67 proliferation rate of 10% to 20%. TREATMENT 1. Patient started treatment with Sandostatin March 2015. 2. Patient started treatment with capecitabine and Temodar January 11, 2016, for progressive disease. Patient stopped treatment with capecitabine and Temodar on August 31, 2017, because of progressive disease. HISTORY OF PRESENT ILLNESS Patient is here today for followup of her metastatic neuroendocrine tumor of the pancreas with hepatic and pulmonary metastasis. She is complaining of scratchy throat lately. She has also some dry cough. She has alternating diarrhea and constipation. She has started to have mild occasional right upper quadrant abdominal pain but other than that her general condition is stable and feeling good in herself so far. PAST MEDICAL HISTORY Insignificant except for: 1. Cataract removal. 2. Hypothyroidism. 3. Anxiety. PAST SURGICAL HISTORY 1. In January 1990, the patient had partial hysterectomy. 2. In 1959, the patient had tonsillectomy. 3. She had cataract surgeries between 2008 and 2009. SOCIAL HISTORY The patient is . She does not have biological children. 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 She has about 12 drinks per year. She denies any abuse of tobacco or illicit drugs. FAMILY HISTORY Father had lung cancer at the age of 72. CURRENT MEDICATIONS 1. Levothyroxine 125 mcg daily. 2. Sandostatin LAR 20 mg intramuscularly every month. 3. Zinc 50 mg daily. 4. Fish oil 1000 mg daily. 5. Calcium and vitamin D 1200 mg daily. 6. Zofran 4 mg three times daily. 7. Centrum multivitamin one tablet daily. ALLERGIES No known drug allergies. REVIEW OF SYSTEMS CONSTITUTIONAL: No appetite or weight change. No fever, chills, or sweating. No recent infection. HEENT: Ears: No tinnitus or hearing problem. Nose: No nasal discharge or epistaxis. Throat: She has scratchy throat. Eyes: No diplopia or visual changes. RESPIRATORY: She has dry cough. CARDIOVASCULAR: No chest pain, orthopnea, or PND. No edema. No palpitations. GASTROINTESTINAL: She has alternating diarrhea and constipation. She has right upper quadrant abdominal pain, which is mild and occasional currently. HEMATOLOGICAL: No bleeding or easy bruising. No weakness or fatigue. No enlarged lymph nodes. GENITOURINARY: No hematuria or dysuria. MUSCULOSKELETAL: No pain in the muscles, joints, or bones. NEUROLOGICAL: No tingling or numbness in the hands or feet. No headaches or convulsions. She is weak, tired, and fatigued. SKIN: No skin rash or lumps. PSYCHIATRIC: No anxiety or depression. PHYSICAL EXAMINATION GENERAL: Looks stable. Well developed, well nourished, and in no acute distress. VITAL SIGNS: Blood pressure 126/84, pulse 96 per minute, respirations 16 per minute, temperature 97.1, pulse ox 93% on room air. HEENT: Head: Atraumatic. No sinus tenderness to palpation. Eyes: No icterus or conjunctivitis. Mouth and throat: No oral thrush or mucositis. NECK: Supple. No cervical or supraclavicular lymphadenopathy. LUNGS: Clear to auscultation and percussion bilaterally. HEART: Regular rate and rhythm. No gallops, murmurs, clicks, or rubs. ABDOMEN: The liver edge is palpable about one to two fingers below the right costal margin and slightly tender to palpation. EXTREMITIES: No cyanosis, clubbing, or edema. LYMPHATICS: No peripheral lymphadenopathy. NEUROLOGICAL: Conscious, alert, and oriented times three. No focal motor or sensory deficits. PSYCHIATRIC: Mood and affect appear normal. DIAGNOSTIC DATA MSI-high checked from her tumor tissue and came back negative. Her PD-L1-1 is done but the results are still not released. CBC showed white count 2.8, hemoglobin 13.6, hematocrit 38.6, platelets 165,000. Chem panel totally normal except blood sugar 119, AST 99. CEA is 44.8, which is up from 40. Chromogranin A is pending but it was high at 607 before. ASSESSMENT 1. Stage IV neuroendocrine tumor grade 2 with mass in the distal body of the pancreas with metastases to the liver and lung by CT abdomen and pelvis done January 05, 2015. CT-guided biopsy of the liver masses done January 05, 2015 came back positive for well-differentiated neuroendocrine tumor with Ki-67 proliferation rate of 10% to 20%, consistent with intermediate grade, well- differentiated neuroendocrine tumor. Octreotide scan showed uptake in multiple lesions of the liver but not in the pancreas or in the lung or elsewhere. 5- hydroxyindoleacetic acid in 24-hour urine sample was normal. Patient has been evaluated at the [facility] with recommendation of treatment with Sandostatin, which was given between March 2015 through December 10, 2015, when her CT scan of the abdomen and pelvis revealed severe hepatomegaly with innumerable metastases throughout the liver with evidence of progression. Patient started treatment with capecitabine and Temodar January 11, 2016. She tolerated the treatment very well except for Temodar, which was stopped for about four months, and the patient used capecitabine alone during these four months, but her CEA rahul from 7.3 to 9.3 to 9.4 to 12.2 to 17.8 to 24.4 to 40.4 and currently 44.8. Temodar was introduced again in her treatment but she continues to have rising CEA and chromogranin A. Her chromogranin A was 336 and her last one was 607 and her level for today is pending. We requested to get MSI-high and PD-L1-1 to be tested in her tumor tissue to see if the patient could be eligible for treatment with immune therapy with checkpoint inhibitors like Keytruda. Her MSI-high came back negative but her PD-L1-1 testing is still pending. If that test is positive I am planning to treat her with Keytruda every three weeks but if negative I am planning to treat her with chemotherapy with carboplatin and etoposide three days every three weeks. I spent a long time with the patient explaining the plan of management and side effects expected from chemotherapy and she is agreeable with the plan of management. For administration of her treatment, I am planing to refer her to Dr. Mccrary for placement of central lumen central port. I will see her after that to start her treatment with either chemotherapy or immune therapy. 2. Chemotherapy-induced leukopenia. Current white count 2.8. Will continue to monitor. 3. Chemotherapy-induced thrombocytopenia, recovered. Current platelet count 165,000. . 4. Hypothyroidism, on supplement. 5. Anxiety, on Zoloft. PLAN 1, Await the results of PD-L1 to decide about further management. If PD-L1 is positive, we are going to treat the patient with Keytruda. 2. If PD-L1 is negative, we are going to treat the patient with carboplatin and etoposide. 3. Consult Dr. Mccrary for placement of central lumen central port. 4. Patient to return after the above to start her treatment. 5. Patient is to contact us for any new concerns or complaints. [facility]
[2017-11-21 13:10] VITALS: BP 135/85
[2017-11-21 13:14] LABS: PLATELET COUNT, AUTOMATED 144 K/uL (150-450)
[2017-11-21] MEDS: diphenhydrAMINE 25 MG CAP PO PRN (14:51)
[2017-11-21] MEDS: NS(*) 0.9% 500 ML BAG 500 ML IV PRN ×2 (14:52→17:03)
[2017-11-21] MEDS: LIDOCAINE/SOD BICARB 8.4% SYR ID PRN (14:53)
[2017-11-21 16:10] VITALS: BP 132/74
[2017-11-21] MEDS: HEPARIN FLSH (PORT) 500 UN/5ML IVP PRN (17:02)
[2017-11-21 17:11] VITALS: BP 139/100
[2017-11-22] MEDS: diphenhydrAMINE 25 MG CAP PO PRN (11:35)
[2017-11-22] MEDS: LIDOCAINE/SOD BICARB 8.4% SYR ID PRN (11:36)
[2017-11-22] MEDS: HEPARIN FLSH (PORT) 500 UN/5ML IVP PRN (11:36)
[2017-11-22 11:42] VITALS: BP 126/84
[2017-11-29 10:16] VITALS: BP 136/75
[2017-11-29] MEDS: diphenhydrAMINE 25 MG CAP PO PRN (10:58)
[2017-11-29] MEDS: LIDOCAINE/SOD BICARB 8.4% SYR ID PRN (10:59)
[2017-11-29] MEDS: NS(*) 0.9% 500 ML BAG 500 ML IV PRN (10:59)
[2017-11-29] MEDS: HEPARIN FLSH (PORT) 500 UN/5ML IVP PRN (11:00)
[2017-12-06 10:10] VITALS: BP 136/88
[2017-12-06] MEDS: NS(*) 0.9% 500 ML BAG 500 ML IV PRN (10:34)
[2017-12-06] MEDS: LIDOCAINE/SOD BICARB 8.4% SYR ID PRN (10:34)
[2017-12-06] MEDS: diphenhydrAMINE 25 MG CAP PO PRN (10:59)
[2017-12-06] MEDS: HEPARIN FLSH (PORT) 500 UN/5ML IVP PRN (12:36)
[2017-12-06 13:13] VITALS: BP 138/84
--- NOTE | 2017-12-06 15:20 | Medical Nutrition Therapy ---
Nutrition Anthropometrics Height (Inches): 65.00 Height (Calculated Centimeters: 165.1000 Weight (Pounds): 181 (pt states her weight has fluctuated over the past few years - currently 82.4 kg) Weight (Calculated Kilograms): 72.83 Hx Weight Loss: Yes (pt states she has lost 8lbs in the past 3 months ) Nutritional Education Nutrition Education Topic: Other (nutrition during cancer treatment ) Learning Readiness: Interested Teaching Methods: Discussion, Handout Response to Teaching: Verbalize understanding Teaching Recipient: Patient Nutrition Counseling: Reviewed handout on Eating during Cancer Treatment, discussed potential nutrition impact symptoms and encouraged patient to review information if she is experiencing any of the symptoms. Nutrition Monitoring & Eval Nutrition Goals: Eat 75-100% Meal, Drink > 2 liters/day Nutritional Goals Comment: Goal is to maintain current wt, adequate po intake Nutrition Follow-Up: Taking Snack Supplement, Fair Intake Nutrition Monitoring: I will provide additional information as needed RD Patient Assessment Time: [address] Assessment Type: RD Education Patient Nutrition Acuity: 3-Mild Nutritional Comment: Encourage patient to call or let RN know if she would like to discuss any nutrition issues with me. BRITNEY LORD RDN, LD Dec 06, 2017 15:20
[2017-12-13 10:13] VITALS: BP 152/90
[2017-12-13] MEDS: NS(*) 0.9% 500 ML BAG 500 ML IV PRN (10:38)
[2017-12-13] MEDS: LIDOCAINE/SOD BICARB 8.4% SYR ID PRN (10:38)
[2017-12-13] MEDS: diphenhydrAMINE 25 MG CAP PO PRN (11:35)
[2017-12-20 10:14] VITALS: BP 118/83
[2017-12-20] MEDS: LIDOCAINE/SOD BICARB 8.4% SYR ID PRN (10:18)
[2017-12-20] MEDS: HEPARIN FLSH (PORT) 500 UN/5ML IVP PRN (10:19)
[2017-12-20] MEDS: diphenhydrAMINE 25 MG CAP PO PRN (11:55)
[2017-12-20 14:12] VITALS: BP 138/85
[~2017-12-22] VITALS: Ht 165.1 cm; Wt 81.1 kg
[~2017-12-22 13:33] MED LIST changes: +ALTEPLASE RECOMB 2 MG VIAL IVP PRN; +BEVACIZUMAB IVPB ONE; +DEXTROSE 5%(*) 100 ML BAG 100 ML IVPB PRN; +IOPAMIDOL 76% 75 ML INFUS BTL 75 ML ONE; +NITR-1 PO; +NS 0.9% IV ONE; +NS 0.9% IVPB ONE; +NS(*) 0.9% 100 ML BAG 100 ML IVPB PRN; +NS(*) 0.9% 250 ML BAG 250 ML IVPB ONE; +WATER FOR INJ,STERILE 20 ML IVP PRN; +[UNRECOGNIZED DRUG - OTHER] IV ONE; +[UNRECOGNIZED DRUG - OTHER] IV ONE; +[UNRECOGNIZED DRUG - OTHER] IV ONE
[2017-12-22 13:39] VITALS: BP 136/86
--- NOTE | 2017-12-23 20:10 | EL-[facility] ONCOLOGY NOTE ---
EVENT DATE: December 22, 2017 DIAGNOSES 1. 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 2. Hypothyroidism. 3. Anxiety. CHIEF COMPLAINT Patient is here today for followup of her neuroendocrine tumor of the pancreas with liver metastasis. ONCOLOGY HISTORY The patient is a 67-year-old female. The patient is here today for followup of her pancreatic neuroendocrine tumor with hepatic metastasis. The patient is stable clinically. She has some cough and nasal discharge from her allergy. She has occasional nausea, vomiting, and diarrhea. She has also right upper quadrant abdominal pain, especially on taking a breath. Hematologically, she is weak, tired, and fatigued. PRESENTATION Food poisoning when she was in [place] in August 2014 with persistent nausea and vomiting, treated with antibiotic without improvement. She was also treated with metronidazole for P. hominis which helped some, but she remains with persistent nausea. She also developed right upper quadrant abdominal pain. DIAGNOSTIC EVALUATION 1. Ultrasound of the right upper quadrant done December 28, 2014, did reveal ill-defined hypoechoic globular mass in the tail of the pancreas, 3.3 x 2.8 cm, worrisome for pancreatic neoplasm. There appears to be numerous hepatic and splenic metastases. 2. CT abdomen and pelvis done January 05, 2015, did reveal 2.6 cm lesion within the distal pancreatic body, concerning for primary pancreatic malignancy. There were hepatic hypoattenuating lesions. There was right axillary mediastinal, subcarinal, hilar, periportal, and left periaortic adenopathy suspicious for metastatic disease with several noncalcified, less than 6 mm pulmonary nodules bilaterally, indeterminate for metastatic disease. 3. Octreotide scan done February 04, 2015, revealed findings consistent with multiple metastatic lesions in the liver. No definite uptake in the chest or elsewhere. 5-hydroxyindoleacetic acid in 24-hour urine specimen was normal. 4. Chromogranin A was elevated at 136. PROCEDURES 1. EGD done December 19, 2014, revealed stomach with histologic features consistent with reactive gastropathy. No active gastritis or Helicobacter pylori seen. 2. CT-guided biopsy of the liver mass done January 07, 2015, came back positive for well-differentiated neuroendocrine tumor. Ki-67 proliferation rate was 10% to 20%, consistent with GI intermediate grade (grade 2) well- differentiated neuroendocrine tumor. PATHOLOGY Positive for intermediate grade, well-differentiated neuroendocrine tumor grade 2 with Ki-67 proliferation rate of 10% to 20%. TREATMENT 1. Patient started treatment with Sandostatin March 2015. 2. Patient started treatment with capecitabine and Temodar January 11, 2016, for progressive disease. Patient stopped treatment with capecitabine and Temodar on August 31, 2017, because of progressive disease. 3. Patient started treatment with Avastin and temsirolimus on November 07, 2017. HISTORY OF PRESENT ILLNESS Patient is here today for followup of her metastatic neuroendocrine tumor of the pancreas with hepatic and pulmonary metastasis, on treatment currently with Avastin and temsirolimus. Patient is complaining of dry skin, dry cough and diarrhea. She had also some sort of laryngitis and dry mouth. She is weak, tired and fatigued. She has also some diarrhea but other than that she is doing fine. PAST MEDICAL HISTORY Insignificant except for: 1. Cataract removal. 2. Hypothyroidism. 3. Anxiety. PAST SURGICAL HISTORY 1. In January 1990, the patient had partial hysterectomy. 2. In 1959, the patient had tonsillectomy. 3. She had cataract surgeries between 2008 and 2009. SOCIAL HISTORY The patient is . She does not have biological children. 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 She has about 12 drinks per year. She denies any abuse of tobacco or illicit drugs. FAMILY HISTORY Father had lung cancer at the age of 72. CURRENT MEDICATIONS 1. Levothyroxine 125 mcg daily. 2. Sandostatin LAR 20 mg intramuscularly every month. 3. Zinc 50 mg daily. 4. Fish oil 1000 mg daily. 5. Calcium and vitamin D 1200 mg daily. 6. Zofran 4 mg three times daily. 7. Centrum multivitamin one tablet daily. ALLERGIES No known drug allergies. REVIEW OF SYSTEMS CONSTITUTIONAL: No appetite or weight change. No fever, chills, or sweating. No recent infection. HEENT: Ears: No tinnitus or hearing problem. Nose: No nasal discharge or epistaxis. Throat: She has scratchy throat. Eyes: No diplopia or visual changes. RESPIRATORY: Patient has dry cough. CARDIOVASCULAR: No chest pain, orthopnea, or PND. No edema. No palpitations. GASTROINTESTINAL: She has diarrhea. HEMATOLOGICAL: She is weak, tired and fatigued. GENITOURINARY: No hematuria or dysuria. MUSCULOSKELETAL: No pain in the muscles, joints, or bones. NEUROLOGICAL: No tingling or numbness in the hands or feet. No headaches or convulsions. She is weak, tired, and fatigued. SKIN: She has dry skin. PSYCHIATRIC: No anxiety or depression. PHYSICAL EXAMINATION GENERAL: Looks stable. Well developed, well nourished, and in no acute distress. VITAL SIGNS: Blood pressure 136/86, pulse 107 per minute, respirations 16 per minute, temperature 97, pulse ox 94% on room air. HEENT: Head: Atraumatic. No sinus tenderness to palpation. Eyes: No icterus or conjunctivitis. Mouth and throat: No oral thrush or mucositis. NECK: Supple. No cervical or supraclavicular lymphadenopathy. LUNGS: Clear to auscultation and percussion bilaterally. HEART: Regular rate and rhythm. No gallops, murmurs, clicks, or rubs. ABDOMEN: The liver edge is palpable about one to two fingers below the right costal margin and slightly tender to palpation. EXTREMITIES: No cyanosis, clubbing, or edema. LYMPHATICS: No peripheral lymphadenopathy. NEUROLOGICAL: Conscious, alert, and oriented times three. No focal motor or sensory deficits. PSYCHIATRIC: Mood and affect appear normal. DIAGNOSTIC DATA CBC showed white count 2.2, hemoglobin 12.2, hematocrit 36, platelets 130,000. Chem panel totally normal except AST 48, alk phos 166. CEA is 24.5, which is down from 51.8. ASSESSMENT 1. Stage IV neuroendocrine tumor grade 2 with mass in the distal body of the pancreas with metastases to the liver and lung by CT abdomen and pelvis done January 05, 2015. CT-guided biopsy of the liver mass done January 05, 2015 came back positive for well-differentiated neuroendocrine tumor with Ki-67 proliferation rate of 10% to 20%. This is consistent with intermediate grade. Octreotide scan showed uptake in multiple lesions of the liver but not in the pancreas or in the lung or elsewhere. 5-hydroxyindoleacetic acid in 24-hour urine sample was normal. Patient has been evaluated at the [facility] with recommendation of treatment with Sandostatin, which was given between March 2015 through December 10, [address] scan of the abdomen and pelvis revealed severe hepatomegaly with innumerable metastases throughout the liver with evidence of progression. Patient started treatment with capecitabine and Temodar January 11, 2016. She tolerated the treatment very well except for Temodar, which was stopped for four months and the patient used capecitabine alone during these four months but her CEA rahul from 7.3 to 44.8 so Temodar was introduced again in her treatment but she continues to have rising CEA and chromogranin A. Her pathology for MSI-high and PD-L1 came back negative so the patient is not a candidate for checkpoint inhibitors. The patient has started treatment this time with a combination of Avastin and temsirolimus. Avastin will be given at 10 mg/kg every two weeks while temsirolimus will be given every week at 25 mg. Prior to starting her treatment, her CEA was 51.8 and after the first month it is currently 24.6 and patient also has some discomfort in her right upper quadrant, which resolved completely after starting the treatment, meaning that the patient most probably is responding very well to the current treatment. I am planning to proceed with her treatment as per schedule. I will see her again in a month from now with CBC, chem panel, CEA and chromogranin A. 2. Chemotherapy-induced leukopenia. Current white count 2.2, ANC 1.4. We will continue to monitor. 3. Chemotherapy-induced thrombocytopenia. Current platelet count 130,000. .No hematologic intervention is required. 4. Hypothyroidism, on supplement. 5. Anxiety, on Zoloft. PLAN 1, Avastin/temsirolimus as per schedule. 2. CBC, chem panel to be checked weekly. 3. Patient to return in one month with CBC, chem panel, chromogranin A and CEA. 4. Patient to contact us for any new concerns or complaints. MTDD
== END 2017-12-24 ==
LOC: ONC 13:33
PROVIDERS: ATTEND Internal Medicine Hematology
DX: Z51.11 Encounter for antineoplastic chemotherapy (principal); C25.9 Malignant neoplasm of pancreas, unspecified; C78.7 Secondary malignant neoplasm of liver and intrahepatic bile duct; C78.00 Secondary malignant neoplasm of unspecified lung; D70.2 Other drug-induced agranulocytosis; E03.9 Hypothyroidism, unspecified; R53.1 Weakness; R53.83 Other fatigue; R05 Cough; R11.2 Nausea with vomiting, unspecified; R19.7 Diarrhea, unspecified; R16.0 Hepatomegaly, not elsewhere classified; D69.59 Other secondary thrombocytopenia; T45.1X5A Adverse effect of antineoplastic and immunosuppressive drugs, initial encounter
CPT/HCPCS: 36415; 71260; 74177; 81001; 82378; 85025; 85027; 86316; 96413; 96417; 99212; G0463; J1642; J7040; J7050; J9035; J9330; Q0163; Q9967; 82040; 82247; 82310; 82374; 82435; 82565; 82947; 84075; 84132; 84155; 84295; 84450; 84460; 84520

== ENCOUNTER → 2018-01-12 | Outpatient (CLI) | payer MEDICARE, OTHER ==
[~2018-01-12] MED LIST changes: -ALTEPLASE RECOMB 2 MG VIAL IVP PRN; -BEVACIZUMAB IVPB ONE; -DEXTROSE 5%(*) 100 ML BAG 100 ML IVPB PRN; -IOPAMIDOL 76% 75 ML INFUS BTL 75 ML ONE; -NS 0.9% IV ONE; -NS 0.9% IVPB ONE; -NS(*) 0.9% 100 ML BAG 100 ML IVPB PRN; -NS(*) 0.9% 250 ML BAG 250 ML IVPB ONE; +SULF-198 PO; -WATER FOR INJ,STERILE 20 ML IVP PRN; -[UNRECOGNIZED DRUG - OTHER] IV ONE; -[UNRECOGNIZED DRUG - OTHER] IV ONE; -[UNRECOGNIZED DRUG - OTHER] IV ONE
--- NOTE | 2018-01-15 12:52 | RADIOLOGY IMAGING REPORT ---
FAC[place] [facility] [place]IENT NAME: FAN MELO : [id number] MR: [id number] V: [id number] EXAM DATE: ORDERING PHYSICIAN: VIOLETTE DODD TECHNOLOGIST: Tania Damon PROCEDURE:BILATERAL DIGITAL SCREENING MAMMOGRAM WITH CAD ASSISTED INTERPRETATION & 3D TOMOSYNTHESIS COMPARISON:Prior mammograms 12/15/16, 11/26/15, 11/20/14, 11/13/13, 10/29/12, 09/13/11. INDICATIONS:SCREENING FINDINGS: There is predominant fatty replacement throughout the breasts with only a small amount of scattered fibroglandular tissue bilaterally. The parenchymal pattern has remained stable allowing for difference in mammographic technique & patient positioning. There is no evidence of malignant appearing mass, malignant appearing calcifications or other secondary sign of malignancy in either breast. DIAGNOSTIC CATEGORY 1--NEGATIVE. RECOMMENDATIONS: ROUTINE MAMMOGRAM AND CLINICAL EVALUATION. IMPRESSION: BIRADS 1: Negative. No significant abnormality is seen. Dictated by: Shadia Weiner M.D. on 01/12/2018 at 14:15 Transcribed by: MARIAM on 01/12/2018 at 14:30 Approved by: Shadia Weiner M.D. on 01/15/2018 at 12:51 [facility]
== END ==
LOC: MAMO 03:46
PROVIDERS: ATTEND Nurse Practitioner Family
DX: Z12.31 Encounter for screening mammogram for malignant neoplasm of breast (principal)
CPT/HCPCS: 77063; 77067

== ENCOUNTER 2018-01-31 10:30 | Outpatient (RCR) | payer MEDICARE, OTHER ==
--- NOTE | 2017-11-29 15:48 | PT INITIAL EVALUATION ---
MEDICAL DIAGNOSIS: Pancreatic Neuroendocrine Tumor with Metastases TREATMENT DIAGNOSIS: Pancreatic Neuroendocrine Tumor with Metastases DATE OF ONSET: 11/29/17 SUBJECTIVE: Maria L is a 67 year old female presenting for oncology rehabilitation evaluation and education following recent change in chemotherapy regime for pancreatic neuroendocrine cancer with metastases. Pt started regime consisting of Avastin and Torisel last week following disease progression on oral chemotherapy. Pt was first diagnosed with cancer 3 years prior and will likely be on variable chemotherapies for the rest of her life to manage disease progression. At this time pt reports that she has no side-effects of treatment. Pt is currently active and has a personal clothing laundry aide to help progress her activity with treatment. REHAB PROBLEM LIST: Increased Pain Decreased Strength Decreased Endurance Decreased Function Decreased ADL's Decreased Mobility PREVIOUS MEDICAL HISTORY: See EMR OBJECTIVE: Posture: Minimal thoracic kyphosis with forward head. Strength: LE MMT: Hip: flexion: B 4-/5, Ext: L 4-/5, R 4/5, Abd: B 5/5, Add: B 5/5. Knee: flexion: L 4-/5 with lateral knee pain, R 4+/5, ext: B 5/5 Sensation: Pt reports no neuropathy at this time. Special Tests: L Knee testing: Joint line tenderness (-), LCL testing (+) with compression, Anterior drawer (-), MCL (-) Mobility: ECOG Performance Status: Grade 0 Other Objective Findings: Pt reports a history of pelvic dysfunction including urinary incontinence and frequency. ASSESSMENT: Maria L Morrison" shows signs and symptoms of general LE weakness secondary to diagnosis of pancreatic neuroendocrine cancer with metastasis. Additionally pt shows slight development of possible left lateral collateral impairment of the knee or IT band syndrome. Physical therapy is indicated to maintain functional mobility with ADL's through correction of the above listed deficits as well as continual monitoring with ongoing oncological treatment. Short Term Goals In 2 MO pt will improve hip strength to 4/5 or greater in all major muscle groups for improved function with ADL's. In 4 MO pt will maintain ECOG performance status of grade 0-1 for maintenance of function with ADL's and decreased side-effects with ongoing oncological treatment. In 4 MO pt will maintain FACT-G score of 75 or greater for maintained function with ADL's. Patient's Goals Maintain function with ADL's. PLAN: Patient to be seen for Manual Therapy/STM/MET Strengthening/condition Ice/Heat Range of Motion Spinal Stabilization Ultrasound Stretching Iontophoresis Neuromuscular Re-ed Closed Chain Program Electrical Stim Posture/Body mechanics Gait Trg/Balance Trg Biofeedback Home Exercise Program Mech./Manual Traction Therapeutic Activities Pelvic Floor 1x/MO for 4 Months If you have any questions, comments, or concerns about this report or plan, please contact me at . Thank you, Cecy Palomino, PT, DPT, CLT MTDD
--- NOTE | 2018-01-10 12:51 | PT PLAN OF CARE ---
Physician: Julian Omalley MD Patient is being seen: 1x/MO Therapist: Cecy Palomino, PT, DPT, CLT & [facility] Montejo Medical Diagnosis: Pancreatic Neuroendocrine Tumor with Metastases Treatment Diagnosis: Pancreatic Neuroendocrine Tumor with Metastases Date of Onset: 11/29/17 Date of Initial Evaluation: 11/29/17 Date patient was last seen: 01/10/18 Number of treatments: 4 Number of cancellations/No shows: 0 INTERVENTIONS: Manual Therapy/STM/MET Strengthening/condition Ice/Heat Range of Motion Spinal Stabilization Ultrasound Stretching Iontophoresis Neuromuscular Re-ed Closed Chain Program Electrical Stim Posture/Body mechanics Gait Trg/Balance Trg Biofeedback Home Exercise Program Mech./Manual Traction Therapeutic Activities Pelvic Floor GOALS: In 2 MO pt will improve hip strength to 4/5 or greater in all major muscle groups for improved function with ADL's. In 4 MO pt will maintain ECOG performance status of grade 0-1 for maintenance of function with ADL's and decreased side-effects with ongoing oncological treatment. MET In 4 MO pt will maintain FACT-G score of 75 or greater for maintained function with ADL's. PATIENT'S GOAL: Maintain function with ADL's. Status of Patient's Goals: 1/3 MET Patient Compliance: Excellent Prognosis: Good Reasons for continuing therapy: Maria L continues to show great improvements in B UE strength and continues to do her HEP for treatment of R subscapularis tendinopathy. Despite ongoing oncology treatment pt continues to maintain activity level. Pt shows slight pelvic floor dysfunction which has improved with treatment. Additionally, L knee pain is no longer present nor is R shoulder pain. Further PT to continue to monitor pt status with ongoing treatment. Posture: Minimal thoracic kyphosis with forward head. Strength: LE MMT: Hip: flexion: B 4-/5, Ext: L 4-/5, R 4/5, Abd: B 5/5, Add: B 5/5. Knee: flexion: L 4-/5 with lateral knee pain, R 4+/5, ext: B 5/5 Mobility: ECOG Performance Status: Grade 0 If you have any questions or concerns feel free to contact me at [phone]. Thank you, Cecy Palomino, PT, DPT, CLT Rand Montejo, [facility] This Physical Therapist was present for the entire physical therapy session directing the services, making the skilled judgement, and was not engaged in treating another patient or doing another task at the same time as the treatment session. SHUKRI
== END 2018-02-27 ==
LOC: PT 10:30
PROVIDERS: ATTEND Internal Medicine Hematology
DX: R53.1 Weakness (principal); C7A.1 Malignant poorly differentiated neuroendocrine tumors; C78.00 Secondary malignant neoplasm of unspecified lung
CPT/HCPCS: 97161

== ENCOUNTER 2018-03-21 10:00 | Outpatient (RCR) | payer MEDICARE, OTHER ==
[2017-12-27 08:29] VITALS: BP 130/84
[2017-12-27] MEDS: LIDOCAINE/SOD BICARB 8.4% SYR ID PRN (08:40)
[2017-12-27] MEDS: NS(*) 0.9% 500 ML BAG 500 ML IV PRN (08:40)
[2017-12-27] MEDS: diphenhydrAMINE 25 MG CAP PO PRN (09:18)
[2017-12-27] MEDS: HEPARIN FLSH (PORT) 500 UN/5ML IVP PRN (11:02)
[2018-01-02 12:01] VITALS: BP 144/89
--- NOTE | 2018-01-02 21:12 | ONCOLOGY FOLLOW UP NOTE ---
EVENT DATE: January 02, 2018 CHIEF COMPLAINT Possible infection. HISTORY OF PRESENT ILLNESS Patient is a 67-year-old female who was seen today as a work-in. She is being treated for a pancreatic neuroendocrine tumor with hepatic and pulmonary metastases. She is currently on Avastin and temsirolimus, both of which she is tolerating without issue. She presents today with a three- to four-day history of increasing erythema to the left side of her face with mild swelling. Her left eye is also red, although she has no discharge. She describes a thick nasal discharge and irritation in the left naris. She has a dry cough. She has had no issues with fever. She denies any sinus tenderness and actually feels quite well. She self-treated herself approximately three or four weeks ago with amoxicillin for other URI complaints. ONCOLOGY HISTORY The patient is a 67-year-old female who developed food poisoning while in [place] in August 2014. She was treated but had persistent nausea and right upper quadrant pain. She was diagnosed with an intermediate grade well-differentiated neuroendocrine tumor , Ki-67 10-20%. See below for details. DIAGNOSTIC EVALUATION 1. Ultrasound of the right upper quadrant done December 28, 2014, did reveal ill-defined hypoechoic globular mass in the tail of the pancreas, 3.3 x 2.8 cm, worrisome for pancreatic neoplasm. There appears to be numerous hepatic and splenic metastases. 2. CT abdomen and pelvis done January 05, 2015, did reveal 2.6 cm lesion within the distal pancreatic body, concerning for primary pancreatic malignancy. There were hepatic hypoattenuating lesions. There was right axillary mediastinal, subcarinal, hilar, periportal, and left periaortic adenopathy suspicious for metastatic disease with several noncalcified, less than 6 mm pulmonary nodules bilaterally, indeterminate for metastatic disease. 3. Octreotide scan done February 04, 2015, revealed findings consistent with multiple metastatic lesions in the liver. No definite uptake in the chest or elsewhere. 5-hydroxyindoleacetic acid in 24-hour urine specimen was normal. 4. Chromogranin A was elevated at 136. PROCEDURES 1. EGD done December 19, 2014, revealed stomach with histologic features consistent with reactive gastropathy. No active gastritis or Helicobacter pylori seen. 2. CT-guided biopsy of the liver mass done January 07, 2015, came back positive for well-differentiated neuroendocrine tumor. Ki-67 proliferation rate was 10% to 20%, consistent with GI intermediate grade (grade 2), well- differentiated neuroendocrine tumor. PATHOLOGY Positive for intermediate grade, well-differentiated neuroendocrine tumor grade 2 with Ki-67 proliferation rate of 10% to 20%. TREATMENT 1. Patient started treatment with Sandostatin March 2015. 2. Patient started treatment with capecitabine and Temodar January 11, 2016, for progressive disease. Patient stopped treatment with capecitabine and Temodar on August 31, 2017, because of progressive disease. 3. Patient started treatment with Avastin and temsirolimus on November 07, 2017. PAST MEDICAL HISTORY Insignificant except for: 1. Cataract removal. 2. Hypothyroidism. 3. Anxiety. PAST SURGICAL HISTORY 1. In January 1990, the patient had partial hysterectomy. 2. In 1959, the patient had tonsillectomy. 3. She had cataract surgeries between 2008 and 2009. SOCIAL HISTORY The patient is . She does not have biological children. 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 She has about 12 drinks per year. She denies any abuse of tobacco or illicit drugs. FAMILY HISTORY Father had lung cancer at the age of 72. CURRENT MEDICATIONS 1. Levothyroxine 125 mcg daily. 2. Sandostatin LAR 20 mg intramuscularly every month. 3. Zinc 50 mg daily. 4. Fish oil 1000 mg daily. 5. Calcium and vitamin D 1200 mg daily. 6. Zofran 4 mg three times daily. 7. Centrum multivitamin one tablet daily. ALLERGIES No known drug allergies. REVIEW OF SYSTEMS A 12-point review of systems is performed and is negative except as stated above. PHYSICAL EXAMINATION VITAL SIGNS: Weight 79.1 kg, BP 144/84, P 100, R 16, temp 97, O2 sat 93%. GENERAL: Patient is well-developed, well-nourished female in no acute distress. She appears nontoxic. HEAD: Normocephalic, atraumatic. No sinus tenderness. She does have some mild swelling on her left face with minimal erythema. EYES: No scleral icterus. Left eye is injected, without discharge. There is irritation on the outer aspect of the left eyelid. NOSE: Erythema and swelling noted in the left naris. NECK: Supple. No palpable adenopathy. LUNGS: Clear bilaterally. CARDIOVASCULAR: Heart rate regular, 84 per minute, without murmur, S3, or S4. EXTREMITIES: No edema. NEUROLOGIC: Nonfocal. LABORATORIES CBC today reveals WBC of 4.3, ANC of 3.3, hemoglobin 12.7, hematocrit 37.4, platelets 124,000. CMP is pending. IMPRESSION AND PLAN The patient is a 67-year-old female with metastatic stage IV neuroendocrine tumor with liver and lung metastases. She currently continues treatment on Avastin and temsirolimus. She presents today with questionable facial cellulitis/upper respiratory infection symptoms. 1. Metastatic neuroendocrine tumor. Patient will receive cycle #2, day 15 of Avastin and temsirolimus tomorrow. 2. ? facial cellulitis versus upper respiratory infection. Patient presents with some mild swelling and minimal erythema to the left side of her face. Her left eye is also injected, but without discharge. Bactrim DS one b.i.d. for 10 days is prescribed. I have asked her to monitor her symptoms closely and present to the Emergency Room if swelling or symptoms worsen. She states understanding. She presents in a nontoxic state today and is afebrile. She states, "I feel better than I look." 3. Thrombocytopenia, mild and chemotherapy induced. She has had no issues with bleeding or excessive bruising. 4. Follow up tomorrow for consideration of Avastin and temsirolimus. I will reevaluate her at that time. MTDD
[2018-01-03 10:12] VITALS: BP 130/79
[2018-01-03] MEDS: LIDOCAINE/SOD BICARB 8.4% SYR ID PRN (10:17)
[2018-01-03] MEDS: diphenhydrAMINE 25 MG CAP PO PRN (11:01)
[2018-01-03] MEDS: HEPARIN FLSH (PORT) 500 UN/5ML IVP PRN (13:38)
[2018-01-10] MEDS: LIDOCAINE/SOD BICARB 8.4% SYR ID PRN (10:27)
[2018-01-10] MEDS: HEPARIN FLSH (PORT) 500 UN/5ML IVP PRN (10:28)
[2018-01-10 10:29] VITALS: BP 130/79
[2018-01-10] MEDS: diphenhydrAMINE 25 MG CAP PO PRN (12:01)
[2018-01-10 13:53] VITALS: BP 131/81
[2018-01-17 10:14] VITALS: BP 125/90
[2018-01-17] MEDS: diphenhydrAMINE 25 MG CAP PO PRN (11:01)
[2018-01-17] MEDS: LIDOCAINE/SOD BICARB 8.4% SYR ID PRN (11:01)
[2018-01-17] MEDS: HEPARIN FLSH (PORT) 500 UN/5ML IVP PRN (11:01)
[2018-01-17] MEDS: NS(*) 0.9% 500 ML BAG 500 ML IV PRN (11:02)
[2018-01-17 13:41] VITALS: BP 128/82
[2018-01-18 10:59] VITALS: BP 144/94
--- NOTE | 2018-01-18 21:33 | [facility] ONCOLOGY NOTE ---
EVENT DATE: January 18, 2018 DIAGNOSES 1. 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 2. Hypothyroidism. 3. Anxiety. CHIEF COMPLAINT Patient is here today for followup of her neuroendocrine tumor of the pancreas with liver metastasis. ONCOLOGY HISTORY The patient is a 67-year-old female. The patient is here today for followup of her pancreatic neuroendocrine tumor with hepatic metastasis. The patient is stable clinically. She has some cough and nasal discharge from her allergy. She has occasional nausea, vomiting, and diarrhea. She has also right upper quadrant abdominal pain, especially on taking a breath. Hematologically, she is weak, tired, and fatigued. PRESENTATION Food poisoning when she was in [place] in August 2014 with persistent nausea and vomiting, treated with antibiotic without improvement. She was also treated with metronidazole for P. hominis, which helped some, but she remains with persistent nausea. She also developed right upper quadrant abdominal pain. DIAGNOSTIC EVALUATION 1. Ultrasound of the right upper quadrant done December 28, 2014, did reveal ill-defined hypoechoic globular mass in the tail of the pancreas, 3.3 x 2.8 cm, worrisome for pancreatic neoplasm. There appears to be numerous hepatic and splenic metastases. 2. CT abdomen and pelvis done January 05, 2015, did reveal 2.6 cm lesion within the distal pancreatic body, concerning for primary pancreatic malignancy. There were hepatic hypoattenuating lesions. There was right axillary mediastinal, subcarinal, hilar, periportal, and left periaortic adenopathy suspicious for metastatic disease with several noncalcified, less than 6 mm pulmonary nodules bilaterally, indeterminate for metastatic disease. 3. Octreotide scan done February 04, 2015, revealed findings consistent with multiple metastatic lesions in the liver. No definite uptake in the chest or elsewhere. 5-hydroxyindoleacetic acid in 24-hour urine specimen was normal. 4. Chromogranin A was elevated at 136. PROCEDURES 1. EGD done December 19, 2014, revealed stomach with histologic features consistent with reactive gastropathy. No active gastritis or Helicobacter pylori seen. 2. CT-guided biopsy of the liver mass done January 07, 2015, came back positive for well-differentiated neuroendocrine tumor. Ki-67 proliferation rate was 10% to 20%, consistent with GI intermediate grade (grade 2) well- differentiated neuroendocrine tumor. PATHOLOGY Positive for intermediate grade, well-differentiated neuroendocrine tumor grade 2 with Ki-67 proliferation rate of 10% to 20%. TREATMENT 1. Patient started treatment with Sandostatin March 2015. 2. Patient started treatment with capecitabine and Temodar January 11, 2016, for progressive disease. Patient stopped treatment with capecitabine and Temodar on August 31, 2017, because of progressive disease. 3. Patient started treatment with Avastin and temsirolimus on November 07, 2017. HISTORY OF PRESENT ILLNESS Patient is here today for followup of her metastatic neuroendocrine tumor of the pancreas with hepatic and pulmonary metastases, on treatment with Avastin and temsirolimus. She is doing fine currently. She is complaining currently of dry cough, some nasal discharge, fatigue, and some change in her flavor of food, but other than, she is really doing very well. PAST MEDICAL HISTORY Insignificant except for: 1. Cataract removal. 2. Hypothyroidism. 3. Anxiety. PAST SURGICAL HISTORY 1. In January 1990, the patient had partial hysterectomy. 2. In 1959, the patient had tonsillectomy. 3. She had cataract surgeries between 2008 and 2009. SOCIAL HISTORY The patient is . She does not have biological children. 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 She has about 12 drinks per year. She denies any abuse of tobacco or illicit drugs. FAMILY HISTORY Father had lung cancer at the age of 72. CURRENT MEDICATIONS 1. Levothyroxine 125 mcg daily. 2. Sandostatin LAR 20 mg intramuscularly every month. 3. Zinc 50 mg daily. 4. Fish oil 1000 mg daily. 5. Calcium and vitamin D 1200 mg daily. 6. Zofran 4 mg three times daily. 7. Centrum multivitamin one tablet daily. ALLERGIES No known drug allergies. REVIEW OF SYSTEMS CONSTITUTIONAL: No appetite or weight change. No fever, chills, or sweating. No recent infection. HEENT: Ears: No tinnitus or hearing problem. Nose: She has nasal discharge. Throat: No sore throat or mouth ulcers. Eyes: No diplopia or visual changes. RESPIRATORY: No shortness of breath. She has a dry cough. CARDIOVASCULAR: No chest pain, orthopnea, or paroxysmal nocturnal dyspnea (PND). No edema. No palpitations. GASTROINTESTINAL: No nausea or vomiting. No diarrhea or constipation. No change in bowel movements. No heartburn or swallowing difficulties. No abdominal pain. No jaundice. No hematemesis, melena, or rectal bleeding. GENITOURINARY: No hematuria or dysuria. MUSCULOSKELETAL: No pain in the muscles, joints, or bones. NEUROLOGICAL: No tingling or numbness in the hands or feet. No headaches or convulsions. HEMATOLOGIC/LYMPHATIC: No bleeding or easy bruising. She is weak, tired, and fatigued. No enlarged lymph nodes. SKIN: No skin rash or lumps. PSYCHIATRIC: No anxiety or depression. PHYSICAL EXAMINATION GENERAL: Looks stable. Well developed, well nourished, and in no acute distress. VITAL SIGNS: Blood pressure 144/94, pulse 87 per minute, respirations 16 per minute, temperature 98, pulse ox 95% on room air. HEENT: Head: Atraumatic. No sinus tenderness to palpation. Eyes: No icterus or conjunctivitis. Mouth and Throat: No oral thrush or mucositis. NECK: Supple. No cervical or supraclavicular lymphadenopathy. LUNGS: Clear to auscultation and percussion bilaterally. HEART: Regular rate and rhythm. No gallops, murmurs, clicks, or rubs. ABDOMEN: Soft and lax. No tenderness. No hepatosplenomegaly. No masses. EXTREMITIES: No cyanosis, clubbing, or edema. LYMPHATICS: No peripheral lymphadenopathy. NEUROLOGICAL: Conscious, alert, and oriented times three. No focal motor or sensory deficits. PSYCHIATRIC: Mood and affect appear normal. SKIN: No skin rash, bruise, or purpuric eruption. DIAGNOSTIC DATA CBC showed white count 3000, hemoglobin 12.1, hematocrit 36.3, platelets 117,000. ANC 2.1. Chem panel normal except alkaline phosphatase 146 and AST 36. CEA is 24.6, down from 51.8. Chromogranin A is 241, down from 1960. ASSESSMENT 1. Stage IV neuroendocrine tumor grade 2 with mass in the distal body of the pancreas with metastases to the liver and lung by CT abdomen and pelvis done January 05, 2015. CT-guided biopsy of the liver mass done January 05, 2015, came back positive for well-differentiated neuroendocrine tumor with Ki-67 proliferation rate of 10% to 20%. This is consistent with intermediate grade. Octreotide scan showed uptake in multiple lesions of the liver, but not in the pancreas or in the lung or elsewhere. A 5-hydroxyindoleacetic acid in 24-hour urine sample was normal. Patient has been evaluated at the [facility] with recommendation of treatment with Sandostatin, which was given between March 2015 through December 10, 2015, when her CT scan of the abdomen and pelvis revealed severe hepatomegaly with innumerable metastases throughout the liver with evidence of progression. Patient started treatment with capecitabine and Temodar January 11, 2016. She tolerated the treatment very well except for Temodar, which was stopped for four months, and the patient used capecitabine alone during those four months, but her CEA rahul from 7.3 to 44.8, so Temodar was introduced again in her treatment. She continues to have rising CEA and chromogranin A. Her pathology for MSI-high and PD-L1 came back negative, so the patient is not a candidate for checkpoint inhibitors. She has started treatment with a combination of Avastin and temsirolimus. Avastin is given at 10 mg/kg every two weeks while temsirolimus will be given every week at 25 mg. Prior to starting treatment, her CEA was 51.8, and after the first month, it dropped to 24.6. Chromogranin A was 1960, and after the first cycle, dropped to 241. Her markers for today are pending. I am planning to proceed with her treatment as per schedule, and I will see her again in a month with CBC, chemistry panel, CEA, and chromogranin A. 2. Chemotherapy-induced leukopenia. Current white count is 3 and ANC 2.1. Will continue to monitor. 3. Chemotherapy-induced thrombocytopenia. Current platelet count 117,000. No hematologic intervention is required. Will continue to monitor. 4. Hypothyroidism, on treatment. 5. Anxiety, on Zoloft. PLAN 1, Avastin/temsirolimus as per schedule. Patient received her third cycle on the January. 2. CBC, chem panel to be checked weekly. 3. Patient to return in one month with CBC, chem panel, chromogranin A, and CEA. 4. Patient to contact us for any new concern or complaints. MTDD
[2018-01-24 10:20] VITALS: BP 128/82
[2018-01-24] MEDS: diphenhydrAMINE 25 MG CAP PO PRN (11:00)
[2018-01-24] MEDS: LIDOCAINE/SOD BICARB 8.4% SYR ID PRN (11:00)
[2018-01-24] MEDS: HEPARIN FLSH (PORT) 500 UN/5ML IVP PRN (11:00)
[2018-01-24] MEDS: NS(*) 0.9% 500 ML BAG 500 ML IV PRN (11:00)
[2018-01-31 10:01] VITALS: BP 141/89
[2018-01-31] MEDS: NS(*) 0.9% 500 ML BAG 500 ML IV PRN (10:06)
[2018-01-31] MEDS: HEPARIN FLSH (PORT) 500 UN/5ML IVP PRN (10:06)
[2018-01-31] MEDS: LIDOCAINE/SOD BICARB 8.4% SYR ID PRN (10:06)
[2018-01-31] MEDS: diphenhydrAMINE 25 MG CAP PO PRN (10:50)
[2018-01-31 13:16] VITALS: BP 143/93
[2018-02-07 10:31] VITALS: BP 165/103
[2018-02-07] MEDS: LIDOCAINE/SOD BICARB 8.4% SYR ID PRN (10:53)
[2018-02-07] MEDS: NS(*) 0.9% 500 ML BAG 500 ML IV PRN (10:54)
[2018-02-07] MEDS: diphenhydrAMINE 25 MG CAP PO PRN (11:26)
[2018-02-07] MEDS: HEPARIN FLSH (PORT) 500 UN/5ML IVP PRN (12:51)
[2018-02-07 12:56] VITALS: BP 154/89
[2018-02-08 10:58] VITALS: BP 146/93
--- NOTE | 2018-02-08 15:57 | [facility] ONCOLOGY NOTE ---
EVENT DATE: February 08, 2018 DIAGNOSES 1. 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 2. Hypothyroidism. 3. Anxiety. CHIEF COMPLAINT Patient is here today for followup of her neuroendocrine tumor of the pancreas with liver metastasis. ONCOLOGY HISTORY The patient is a 67-year-old female. The patient is here today for followup of her pancreatic neuroendocrine tumor with hepatic metastasis. The patient is stable clinically. She has some cough and nasal discharge from her allergy. She has occasional nausea, vomiting, and diarrhea. She has also right upper quadrant abdominal pain, especially on taking a breath. Hematologically, she is weak, tired, and fatigued. PRESENTATION Food poisoning when she was in [place] in August 2014 with persistent nausea and vomiting, treated with antibiotic without improvement. She was also treated with metronidazole for P. hominis, which helped some, but she remains with persistent nausea. She also developed right upper quadrant abdominal pain. DIAGNOSTIC EVALUATION 1. Ultrasound of the right upper quadrant done December 28, 2014, did reveal ill-defined hypoechoic globular mass in the tail of the pancreas, 3.3 x 2.8 cm, worrisome for pancreatic neoplasm. There appears to be numerous hepatic and splenic metastases. 2. CT abdomen and pelvis done January 05, 2015, did reveal 2.6 cm lesion within the distal pancreatic body, concerning for primary pancreatic malignancy. There were hepatic hypoattenuating lesions. There was right axillary mediastinal, subcarinal, hilar, periportal, and left periaortic adenopathy suspicious for metastatic disease with several noncalcified, less than 6 mm pulmonary nodules bilaterally, indeterminate for metastatic disease. 3. Octreotide scan done February 04, 2015, revealed findings consistent with multiple metastatic lesions in the liver. No definite uptake in the chest or elsewhere. 5-hydroxyindoleacetic acid in 24-hour urine specimen was normal. 4. Chromogranin A was elevated at 136. PROCEDURES 1. EGD done December 19, 2014, revealed stomach with histologic features consistent with reactive gastropathy. No active gastritis or Helicobacter pylori seen. 2. CT-guided biopsy of the liver mass done January 07, 2015, came back positive for well-differentiated neuroendocrine tumor. Ki-67 proliferation rate was 10% to 20%, consistent with GI intermediate grade (grade 2) well- differentiated neuroendocrine tumor. PATHOLOGY Positive for intermediate grade, well-differentiated neuroendocrine tumor grade 2 with Ki-67 proliferation rate of 10% to 20%. TREATMENT 1. Patient started treatment with Sandostatin March 2015. 2. Patient started treatment with capecitabine and Temodar January 11, 2016, for progressive disease. Patient stopped treatment with capecitabine and Temodar on August 31, 2017, because of progressive disease. 3. Patient started treatment with Avastin and temsirolimus on November 07, 2017. HISTORY OF PRESENT ILLNESS Patient is here today for followup of her metastatic neuroendocrine tumor of the pancreas with hepatic and pulmonary metastases, on treatment with Avastin and temsirolimus. She is really doing very well currently. She has some dry cough and nasal discharge, and she bruises easily, but other than that, she is really doing very well. PAST MEDICAL HISTORY Insignificant except for: 1. Cataract removal. 2. Hypothyroidism. 3. Anxiety. PAST SURGICAL HISTORY 1. In January 1990, the patient had partial hysterectomy. 2. In 1959, the patient had tonsillectomy. 3. She had cataract surgeries between 2008 and 2009. SOCIAL HISTORY The patient is . She does not have biological children. 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 She has about 12 drinks per year. She denies any abuse of tobacco or illicit drugs. FAMILY HISTORY Father had lung cancer at the age of 72. CURRENT MEDICATIONS 1. Levothyroxine 125 mcg daily. 2. Sandostatin LAR 20 mg intramuscularly every month. 3. Zinc 50 mg daily. 4. Fish oil 1000 mg daily. 5. Calcium and vitamin D 1200 mg daily. 6. Zofran 4 mg three times daily. 7. Centrum multivitamin one tablet daily. ALLERGIES No known drug allergies. REVIEW OF SYSTEMS CONSTITUTIONAL: No appetite or weight change. No fever, chills, or sweating. No recent infection. HEENT: Ears: No tinnitus or hearing problem. Nose: She has nasal discharge. Throat: No sore throat or mouth ulcers. Eyes: No diplopia or visual changes. RESPIRATORY: No shortness of breath. She has a dry cough. CARDIOVASCULAR: No chest pain, orthopnea, or paroxysmal nocturnal dyspnea (PND). No edema. No palpitations. GASTROINTESTINAL: No nausea or vomiting. No diarrhea or constipation. No change in bowel movements. No heartburn or swallowing difficulties. No abdominal pain. No jaundice. No hematemesis, melena, or rectal bleeding. GENITOURINARY: No hematuria or dysuria. MUSCULOSKELETAL: No pain in the muscles, joints, or bones. NEUROLOGICAL: No tingling or numbness in the hands or feet. No headaches or convulsions. HEMATOLOGIC/LYMPHATIC: She bruises easily. No weakness or fatigue. No enlarged lymph nodes. SKIN: No skin rash or lumps. PSYCHIATRIC: No anxiety or depression. PHYSICAL EXAMINATION GENERAL: Looks stable. Well developed, well nourished, and in no acute distress. VITAL SIGNS: Blood pressure 146/93, pulse 91 per minute, respirations 16 per minute, temperature 96.9, pulse ox 96% on room air. HEENT: Head: Atraumatic. No sinus tenderness to palpation. Eyes: No icterus or conjunctivitis. Mouth and Throat: No oral thrush or mucositis. NECK: Supple. No cervical or supraclavicular lymphadenopathy. LUNGS: Clear to auscultation and percussion bilaterally. HEART: Regular rate and rhythm. No gallops, murmurs, clicks, or rubs. ABDOMEN: Soft and lax. No tenderness. No hepatosplenomegaly. No masses. EXTREMITIES: No cyanosis, clubbing, or edema. LYMPHATICS: No peripheral lymphadenopathy. NEUROLOGICAL: Conscious, alert, and oriented times three. No focal motor or sensory deficits. PSYCHIATRIC: Mood and affect appear normal. SKIN: No skin rash, bruise, or purpuric eruption. DIAGNOSTIC DATA CBC showed white count 3.9, hemoglobin 12.2, hematocrit 36.5, platelets 96,000. ANC 2.7. Chem panel is totally normal except alkaline phosphatase 127 which is down from 138. CEA is 16.6, which is down from 24.6. Chromogranin A is 218, which is down from 241. ASSESSMENT 1. Stage IV neuroendocrine tumor grade 2 with mass in the distal body of the pancreas with metastases to the liver and lung by CT abdomen and pelvis done January 05, 2015. CT-guided biopsy of the liver mass done January 05, 2015, came back positive for well-differentiated neuroendocrine tumor with Ki-67 proliferation rate of 10% to 20%. This is consistent with intermediate grade. Octreotide scan showed uptake in multiple lesions of the liver, but not in the pancreas or in the lung or elsewhere. A 5-hydroxyindoleacetic acid in 24-hour urine sample was normal. Patient has been evaluated at the [facility] with recommendation of treatment with Sandostatin, which was given between March 2015 through December 10, 2015, when her CT scan of the abdomen and pelvis revealed severe hepatomegaly with innumerable metastases throughout the liver with evidence of progression. Patient started treatment with capecitabine and Temodar January 11, 2016. She tolerated treatment very well except for Temodar, which was stopped for four months, and the patient used capecitabine alone during those four months, but her CEA rahul from 7.3 to 44.8, so Temodar was introduced again in her treatment. She continues to have rising CEA and chromogranin A. Her pathology for MSI-high and PD-L1 came back negative, so the patient is not a candidate for checkpoint inhibitors. She has started treatment with a combination of Avastin and temsirolimus. Avastin is given at 10 mg/kg every two weeks while temsirolimus is given every week at 25 mg. Prior to starting treatment, her CEA was 51.8, and after the first month, it dropped to 24.6, and currently, it is 16.6. Chromogranin A was 1960, and after the first cycle, it dropped to 241 and currently 218. I am planning to proceed with her treatment as scheduled as the patient is tolerating the treatment well, and she is getting also a very good response to the current treatment. I will see her in another month with CBC, chemistry panel, CEA, and chromogranin A. 2. Chemotherapy-induced leukopenia. Her current white count is 3.9 and the ANC 2.7, which are really very good. 3. Chemotherapy-induced thrombocytopenia. Current platelet count 96,000. No hematologic intervention is required. Will continue to monitor. 4. Hypothyroidism, on treatment. 5. Anxiety, on Zoloft. PLAN 1, Avastin/temsirolimus as per schedule. She received her third cycle on the January, and she is due for her fourth cycle on the February. 2. CBC, chem panel to be checked weekly. 3. Patient to return in one month with CBC, chem panel, chromogranin A, and CEA. 4. Patient to contact us for any new concern or complaints. MTDD
[2018-02-14 07:30] VITALS: BP 148/97
[2018-02-14] MEDS: LIDOCAINE/SOD BICARB 8.4% SYR ID PRN (07:33)
[2018-02-14] MEDS: NS(*) 0.9% 500 ML BAG 500 ML IV PRN (07:34)
[2018-02-14] MEDS: HEPARIN FLSH (PORT) 500 UN/5ML IVP PRN (07:34)
[2018-02-14] MEDS: diphenhydrAMINE 25 MG CAP PO PRN (07:49)
[2018-02-21 10:11] VITALS: BP 155/86
[2018-02-21] MEDS: LIDOCAINE/SOD BICARB 8.4% SYR ID PRN (10:30)
[2018-02-21] MEDS: diphenhydrAMINE 25 MG CAP PO PRN (10:55)
[2018-02-21] MEDS: NS(*) 0.9% 500 ML BAG 500 ML IV PRN (12:35)
[2018-02-21] MEDS: HEPARIN FLSH (PORT) 500 UN/5ML IVP PRN (12:35)
[2018-02-28 10:12] VITALS: BP 152/94
[2018-02-28] MEDS: NS(*) 0.9% 500 ML BAG 500 ML IV PRN (10:27)
[2018-02-28] MEDS: LIDOCAINE/SOD BICARB 8.4% SYR ID PRN (10:27)
[2018-02-28] MEDS: HEPARIN FLSH (PORT) 500 UN/5ML IVP PRN ×2 (10:27→12:40)
[2018-02-28] MEDS: diphenhydrAMINE 25 MG CAP PO PRN (10:49)
[2018-02-28 13:17] VITALS: BP 163/92
--- NOTE | 2018-02-28 15:56 | NUR ---
Pt completed HADS form. Pt Scored D: 1, A: 2 - no concerns at this time.
[2018-03-07 10:15] VITALS: BP 129/91
[2018-03-07] MEDS: NS(*) 0.9% 500 ML BAG 500 ML IV PRN (10:27)
[2018-03-07] MEDS: LIDOCAINE/SOD BICARB 8.4% SYR ID PRN (10:27)
[2018-03-07] MEDS: diphenhydrAMINE 25 MG CAP PO PRN (11:11)
[2018-03-07 12:42] VITALS: BP 145/90
[2018-03-07] MEDS: HEPARIN FLSH (PORT) 500 UN/5ML IVP PRN (12:42)
[2018-03-08 10:09] VITALS: BP_SYST 121; BP_SYST 145; BP_DIAS 71; BP_DIAS 92
--- NOTE | 2018-03-08 12:42 | EL-[facility] ONCOLOGY NOTE ---
EVENT DATE: March 08, 2018 DIAGNOSES 1. 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 2. Hypothyroidism. 3. Anxiety. CHIEF COMPLAINT Patient is here today for followup of her neuroendocrine tumor of the pancreas with liver metastasis. ONCOLOGY HISTORY The patient is a 67-year-old female. The patient is here today for followup of her pancreatic neuroendocrine tumor with hepatic metastasis. The patient is stable clinically. She has some cough and nasal discharge from her allergy. She has occasional nausea, vomiting, and diarrhea. She has also right upper quadrant abdominal pain, especially on taking a breath. Hematologically, she is weak, tired, and fatigued. PRESENTATION Food poisoning when she was in [place] in August 2014 with persistent nausea and vomiting, treated with antibiotic without improvement. She was also treated with metronidazole for P. hominis, which helped some, but she remains with persistent nausea. She also developed right upper quadrant abdominal pain. DIAGNOSTIC EVALUATION 1. Ultrasound of the right upper quadrant done December 28, 2014, did reveal ill-defined hypoechoic globular mass in the tail of the pancreas, 3.3 x 2.8 cm, worrisome for pancreatic neoplasm. There appears to be numerous hepatic and splenic metastases. 2. CT abdomen and pelvis done January 05, 2015, did reveal 2.6 cm lesion within the distal pancreatic body, concerning for primary pancreatic malignancy. There were hepatic hypoattenuating lesions. There was right axillary mediastinal, subcarinal, hilar, periportal, and left periaortic adenopathy suspicious for metastatic disease with several noncalcified, less than 6 mm pulmonary nodules bilaterally, indeterminate for metastatic disease. 3. Octreotide scan done February 04, 2015, revealed findings consistent with multiple metastatic lesions in the liver. No definite uptake in the chest or elsewhere. 5-hydroxyindoleacetic acid in 24-hour urine specimen was normal. 4. Chromogranin A was elevated at 136. PROCEDURES 1. EGD done December 19, 2014, revealed stomach with histologic features consistent with reactive gastropathy. No active gastritis or Helicobacter pylori seen. 2. CT-guided biopsy of the liver mass done January 07, 2015, came back positive for well-differentiated neuroendocrine tumor. Ki-67 proliferation rate was 10% to 20%, consistent with GI intermediate grade (grade 2) well- differentiated neuroendocrine tumor. PATHOLOGY Positive for intermediate grade, well-differentiated neuroendocrine tumor grade 2 with Ki-67 proliferation rate of 10% to 20%. TREATMENT 1. Patient started treatment with Sandostatin March 2015. 2. Patient started treatment with capecitabine and Temodar January 11, 2016, for progressive disease. Patient stopped treatment with capecitabine and Temodar on August 31, 2017, because of progressive disease. 3. Patient started treatment with Avastin and temsirolimus on November 07, 2017. HISTORY OF PRESENT ILLNESS Patient is here today for followup of her metastatic neuroendocrine tumor of the pancreas with hepatic and pulmonary metastases, on treatment with temsirolimus and Avastin. She continues to show response to her current treatment. She is complaining of dry cough, runny and bloody nose occasionally. She has also muscle aches sometimes and she is weak, tired and fatigued lately. . PAST MEDICAL HISTORY Insignificant except for: 1. Cataract removal. 2. Hypothyroidism. 3. Anxiety. PAST SURGICAL HISTORY 1. In January 1990, the patient had partial hysterectomy. 2. In 1959, the patient had tonsillectomy. 3. She had cataract surgeries between 2008 and 2009. SOCIAL HISTORY The patient is . She does not have biological children. 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 She has about 12 drinks per year. She denies any abuse of tobacco or illicit drugs. FAMILY HISTORY Father had lung cancer at the age of 72. CURRENT MEDICATIONS 1. Levothyroxine 125 mcg daily. 2. Sandostatin LAR 20 mg intramuscularly every month. 3. Zinc 50 mg daily. 4. Fish oil 1000 mg daily. 5. Calcium and vitamin D 1200 mg daily. 6. Zofran 4 mg three times daily. 7. Centrum multivitamin one tablet daily. ALLERGIES No known drug allergies. REVIEW OF SYSTEMS CONSTITUTIONAL: No appetite or weight change. No fever, chills, or sweating. No recent infection. HEENT: Ears: No tinnitus or hearing problem. Nose: She has runny and bloody nose occasionally. Throat: No sore throat or mouth ulcers. Eyes: No diplopia or visual changes. RESPIRATORY: She has dry cough. CARDIOVASCULAR: No chest pain, orthopnea, or paroxysmal nocturnal dyspnea (PND). No edema. No palpitations. GASTROINTESTINAL: No nausea or vomiting. No diarrhea or constipation. No change in bowel movements. No heartburn or swallowing difficulties. No abdominal pain. No jaundice. No hematemesis, melena, or rectal bleeding. GENITOURINARY: No hematuria or dysuria. MUSCULOSKELETAL: She has muscle aches. NEUROLOGICAL: No tingling or numbness in the hands or feet. No headaches or convulsions. HEMATOLOGIC/LYMPHATIC: She is weak, tired and fatigued. SKIN: No skin rash or lumps. PSYCHIATRIC: No anxiety or depression. PHYSICAL EXAMINATION GENERAL: Looks stable. Well developed, well nourished, and in no acute distress. VITAL SIGNS: Blood pressure 145/92, pulse 93 per minute, respirations 16 per minute, temperature 96.9, pulse ox 98% on room air. HEENT: Head: Atraumatic. No sinus tenderness to palpation. Eyes: No icterus or conjunctivitis. Mouth and Throat: No oral thrush or mucositis. NECK: Supple. No cervical or supraclavicular lymphadenopathy. LUNGS: Clear to auscultation and percussion bilaterally. HEART: Regular rate and rhythm. No gallops, murmurs, clicks, or rubs. ABDOMEN: Soft and lax. No tenderness. No hepatosplenomegaly. No masses. EXTREMITIES: No cyanosis, clubbing, or edema. LYMPHATICS: No peripheral lymphadenopathy. NEUROLOGICAL: Conscious, alert, and oriented times three. No focal motor or sensory deficits. PSYCHIATRIC: Mood and affect appear normal. SKIN: No skin rash, bruise, or purpuric eruption. DIAGNOSTIC DATA CBC showed white count 3.8, hemoglobin 12.2, hematocrit 37.4, platelets 97,000. Chem panel is totally normal except chloride 111 and blood sugar 112. CEA is 10.7, down from 16.6, and chromogranin A is 209, down from 218. ASSESSMENT 1. Stage IV neuroendocrine tumor grade 2 with mass in the distal body of the pancreas with metastases to the liver and lung by CT abdomen and pelvis done January 05, 2015. CT-guided biopsy of the liver mass done January 05, 2015, came back positive for well-differentiated neuroendocrine tumor with Ki-67 proliferation rate of 10% to 20%. This is consistent with intermediate grade. Octreotide scan showed uptake in multiple lesions of the liver but not in the pancreas or in the lung or elsewhere. A 5-hydroxyindoleacetic acid in 24-hour urine sample was normal. Patient has been evaluated at the [facility] with recommendation of treatment with Sandostatin, which was given between March 2015 through December 10, 2015, when her CT scan of the abdomen and pelvis revealed severe hepatomegaly with innumerable metastases throughout the liver with evidence of progression. Patient started treatment with capecitabine and Temodar January 11, 2016. She tolerated treatment very well except for Temodar, which was stopped for four months, and the patient used capecitabine alone during those four months but her CEA rahul from 7.3 to 44.8, so Temodar was introduced again to her treatment. She continues to have rising CEA and chromogranin A. Her pathology for MSI-high and PD-L1 came back negative so the patient is not a candidate for checkpoint inhibitors. She has started treatment with a combination of Avastin and temsirolimus. Avastin is given at 10 mg/kg every two weeks while temsirolimus is given every week at 25 mg. Prior to starting treatment, her CEA was 51.8 and after the first month it dropped to 24.6 and currently it is 10.7 and continues to drop. Chromogranin A was 1,960 and after the first cycle it dropped to 241 and currently it is 209. I am planning to proceed with her treatment as scheduled and I will check her CBC and chem panel each week prior to temsirolimus and I will see her again in a month with CBC, chem panel, CEA and chromogranin A. 2. Chemotherapy-induced leukopenia. Current white count is 3.8, which is stable. We will continue to monitor. 3. Chemotherapy-induced thrombocytopenia. Current platelet count 97,000, which is stable. We will continue to monitor. 4. Hypothyroidism, on treatment. 5. Anxiety, on Zoloft. PLAN 1, Avastin/temsirolimus as per schedule. 2. CBC and chem panel to be checked weekly. 3. Patient to return in one month with CBC, chem panel, chromogranin A, and CEA. 4. Patient to contact us for any new concern or complaints. MTDD
[2018-03-14] MEDS: LIDOCAINE/SOD BICARB 8.4% SYR ID PRN (10:16)
[2018-03-14] MEDS: HEPARIN FLSH (PORT) 500 UN/5ML IVP PRN (10:16)
[2018-03-14] MEDS: NS(*) 0.9% 500 ML BAG 500 ML IV PRN (10:17)
[2018-03-14 10:18] VITALS: BP 150/85
[2018-03-14] MEDS: diphenhydrAMINE 25 MG CAP PO PRN (11:42)
[2018-03-14 12:57] VITALS: BP 158/85
[~2018-03-21] VITALS: Ht 165.1 cm; Wt 77.1 kg
[~2018-03-21 10:00] MED LIST changes: +ALTEPLASE RECOMB 2 MG VIAL IVP PRN; +BEVACIZUMAB IVPB ONE; +DEXTROSE 5%(*) 100 ML BAG 100 ML IVPB PRN; +NS 0.9% IV ONE; +NS 0.9% IV PRN; +NS 0.9% IVPB ONE; +NS(*) 0.9% 100 ML BAG 100 ML IVPB PRN; +WATER FOR INJ,STERILE 20 ML IVP PRN; +[UNRECOGNIZED DRUG - OTHER] IV ONE; +[UNRECOGNIZED DRUG - OTHER] IV PRN
[2018-03-21 10:14] VITALS: BP 171/98
[2018-03-21] MEDS: diphenhydrAMINE 25 MG CAP PO PRN (10:51)
[2018-03-21] MEDS: LIDOCAINE/SOD BICARB 8.4% SYR ID PRN (10:51)
[2018-03-21] MEDS: NS(*) 0.9% 500 ML BAG 500 ML IV PRN (10:51)
[2018-03-21] MEDS: HEPARIN FLSH (PORT) 500 UN/5ML IVP PRN (11:20)
[2018-03-21] MEDS ORDERED: [UNRECOGNIZED DRUG - OTHER] IV ONE (11:30)
[2018-03-21] MEDS ORDERED: NS 0.9% IV ONE (11:30)
[2018-03-21 12:39] VITALS: BP 162/97
--- NOTE | 2018-03-21 14:17 | Medical Nutrition Therapy ---
Nutrition Anthropometrics Height (Inches): 65.00 Height (Calculated Centimeters: 165.1000 Weight (Pounds): 170 Weight (Calculated Kilograms): 72.83 Hx Weight Loss: Yes (pt states she has lost 8lbs in the past 3 months ) Adan Nutrition Score: Adan Nutrition Risk Score: Dietary Referral Nutrition Risk Factors: Nutrition Risk Comment: Nutritional Education Nutrition Education Topic: Other (nutrition issues with Ca tx) Learning Readiness: Interested Teaching Methods: Discussion, Handout Response to Teaching: Verbalize understanding Teaching Recipient: Patient Nutrition Counseling: Pt states has lost ~ 10# with tx. Current BMI 28.3. Pt states she would like to lose 5 more lbs but is concerned that she might lose more. Pt states once weighed over 200# and had planned 50# wt loss so eating when she isn't hungry is is hard for her to eat. Nutritional issues are: wt loss, not hungary, don't feel like eating , foods have no taste, spicey foods, strong flavors hurt mouth, smells bother her, dry mouth. Reviewed tips for poor appetite. Encouraged snacking, discussed various snacks. Making smoothies as meal replacement and adding xtra protein. Pt refused to try supplements but will put CIB in smoothies. Encouraged cooking ahead for days with low energy, trying preparded foods. Biotin and SF gum for dry mouth. Provided nutr care for Ca and NCI Eating hints for Ca book. Contact information provided and pt encouraged to contact RD if further questions or concerns. Nutrition Monitoring & Eval RD Patient Assessment Time: [address] Assessment Type: RD Education Patient Nutrition Acuity: 3-Mild Nutritional Comment: Provided 60 minutes nutrtion education for Ca dx. Copies To Copies to: THALIA CLARK MD ; JOSE VO Mar 21, 2018 14:17
== END 2018-03-26 ==
LOC: ONC 10:00
PROVIDERS: ATTEND Internal Medicine Hematology
DX: Z51.11 Encounter for antineoplastic chemotherapy (principal); C25.9 Malignant neoplasm of pancreas, unspecified; C78.7 Secondary malignant neoplasm of liver and intrahepatic bile duct; C78.00 Secondary malignant neoplasm of unspecified lung; D70.2 Other drug-induced agranulocytosis; E03.9 Hypothyroidism, unspecified; R53.1 Weakness; R53.83 Other fatigue; R05 Cough; R11.2 Nausea with vomiting, unspecified; R19.7 Diarrhea, unspecified; R16.0 Hepatomegaly, not elsewhere classified; D69.59 Other secondary thrombocytopenia; T45.1X5A Adverse effect of antineoplastic and immunosuppressive drugs, initial encounter; F41.9 Anxiety disorder, unspecified
CPT/HCPCS: 81001; 82378; 85027; 86316; 96413; 96417; G0463; J1642; J7040; J7050; J9035; J9330; Q0163; 82040; 82247; 82310; 82374; 82435; 82565; 82947; 84075; 84132; 84155; 84295; 84450; 84460; 84520; 99212

== ENCOUNTER → 2018-05-09 | Outpatient (CLI) | payer MEDICARE, OTHER ==
[~2018-05-09] MED LIST changes: -ALTEPLASE RECOMB 2 MG VIAL IVP PRN; -BEVACIZUMAB IVPB ONE; -DEXTROSE 5%(*) 100 ML BAG 100 ML IVPB PRN; -NS 0.9% IV ONE; -NS 0.9% IV PRN; -NS 0.9% IVPB ONE; -NS(*) 0.9% 100 ML BAG 100 ML IVPB PRN; -WATER FOR INJ,STERILE 20 ML IVP PRN; -[UNRECOGNIZED DRUG - OTHER] IV ONE; -[UNRECOGNIZED DRUG - OTHER] IV PRN
== END ==
LOC: SPU 08:38
PROVIDERS: ATTEND Nurse Practitioner Family
DX: E03.9 Hypothyroidism, unspecified (principal); E78.5 Hyperlipidemia, unspecified
CPT/HCPCS: 82465; 83718; 84443; 84478

== ENCOUNTER 2018-05-30 11:30 | Outpatient (RCR) | payer MEDICARE, OTHER ==
--- NOTE | 2018-03-14 13:34 | PT PLAN OF CARE ---
Physician: Julian Omalley MD Patient is being seen: 1-4x/Week Therapist: Cecy Palomino, PT, DPT, CLT Medical Diagnosis: Pancreatic Neuroendocrine Tumor with Metastases Treatment Diagnosis: Pancreatic Neuroendocrine Tumor with Metastases Date of Onset: 11/29/17 Date of Initial Evaluation: 11/29/17 Date patient was last seen: 03/14/18 Number of treatments: 6 Number of cancellations/No shows: 0 INTERVENTIONS: Manual Therapy/STM/MET Strengthening/condition Ice/Heat Range of Motion Spinal Stabilization Ultrasound Stretching Iontophoresis Neuromuscular Re-ed Closed Chain Program Electrical Stim Posture/Body mechanics Gait Trg/Balance Trg Biofeedback Home Exercise Program Mech./Manual Traction Therapeutic Activities Pelvic Floor GOALS: In 2 MO pt will improve hip strength to 4/5 or greater in all major muscle groups for improved function with ADL's. In 4 MO pt will maintain ECOG performance status of grade 0-1 for maintenance of function with ADL's and decreased side-effects with ongoing oncological treatment. MET In 4 MO pt will maintain FACT-G score of 75 or greater for maintained function with ADL's. PATIENT'S GOAL: Maintain function with ADL's. Status of Patient's Goals: 1/3 MET Patient Compliance: Excellent Prognosis: Good Reasons for continuing therapy: Maria L shows good maintenance in function overall with ongoing chemotherapy. All R shoulder problems have mostly resolved with no longer any L knee problems at this time as well. However, recently pt started developing L shoulder impingement with overhead reaching with painful arc present in abduction plane. Pt started on exercises for treatment and PT will continue to monitor progress. Pt is to maintain recreational exercise with modified L UE movement at this time until impingement is improved to decrease damage to RTC. Posture: Minimal thoracic kyphosis with forward head. Strength: LE MMT: Hip: flexion: B 4-/5, Ext: L 4-/5, R 4/5, Abd: B 5/5, Add: B 5/5. Knee: flexion: L 4-/5 with lateral knee pain, R 4+/5, ext: B 5/5 Mobility: ECOG Performance Status: Grade 0 Outcome Measures: Functional Assessment of Cancer Treatment-General (FACT-G): PWB: , SWBL , EWB , FWB: , Total: 80/108 If you have any questions or concerns feel free to contact me at [phone]. Thank you, Cecy Palomino, PT, DPT, CLT MTDD
== END 2018-06-12 ==
LOC: PT 11:30
PROVIDERS: ATTEND Internal Medicine Hematology
DX: M75.42 Impingement syndrome of left shoulder (principal); C7A.1 Malignant poorly differentiated neuroendocrine tumors; C78.00 Secondary malignant neoplasm of unspecified lung

== ENCOUNTER 2018-06-20 10:00 | Outpatient (RCR) | payer MEDICARE, OTHER ==
[2018-03-28 10:19] VITALS: BP 137/95
[2018-03-28] MEDS: LIDOCAINE/SOD BICARB 8.4% SYR ID PRN (10:20)
[2018-03-28] MEDS: NS(*) 0.9% 500 ML BAG 500 ML IV PRN (10:21)
[2018-03-28] MEDS: diphenhydrAMINE 25 MG CAP PO PRN (11:16)
[2018-03-28] MEDS: HEPARIN FLSH (PORT) 500 UN/5ML IVP PRN (11:17)
[2018-03-28 13:39] VITALS: BP 158/92
[2018-04-04 10:07] VITALS: BP 157/90
[2018-04-04] MEDS: NS(*) 0.9% 500 ML BAG 500 ML IV PRN (10:15)
[2018-04-04] MEDS: HEPARIN FLSH (PORT) 500 UN/5ML IVP PRN (11:31)
[2018-04-04] MEDS: LIDOCAINE/SOD BICARB 8.4% SYR ID PRN (11:32)
[2018-04-05 10:33] VITALS: BP 154/87
--- NOTE | 2018-04-05 12:19 | EL-TAR[facility] ONCOLOGY NOTE ---
EVENT DATE: April 05, 2018 DIAGNOSES 1. 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 2. Hypothyroidism. 3. Anxiety. CHIEF COMPLAINT Patient is here today for followup of her neuroendocrine tumor of the pancreas with liver metastasis. ONCOLOGY HISTORY The patient is a 67-year-old female. The patient is here today for followup of her pancreatic neuroendocrine tumor with hepatic metastasis. The patient is stable clinically. She has some cough and nasal discharge from her allergy. She has occasional nausea, vomiting, and diarrhea. She has also right upper quadrant abdominal pain, especially on taking a breath. Hematologically, she is weak, tired, and fatigued. PRESENTATION Food poisoning when she was in [place] in August 2014 with persistent nausea and vomiting, treated with antibiotic without improvement. She was also treated with metronidazole for P. hominis, which helped some, but she remains with persistent nausea. She also developed right upper quadrant abdominal pain. DIAGNOSTIC EVALUATION 1. Ultrasound of the right upper quadrant done December 28, 2014, did reveal ill-defined hypoechoic globular mass in the tail of the pancreas, 3.3 x 2.8 cm, worrisome for pancreatic neoplasm. There appears to be numerous hepatic and splenic metastases. 2. CT abdomen and pelvis done January 05, 2015, did reveal 2.6 cm lesion within the distal pancreatic body, concerning for primary pancreatic malignancy. There were hepatic hypoattenuating lesions. There was right axillary mediastinal, subcarinal, hilar, periportal, and left periaortic adenopathy suspicious for metastatic disease with several noncalcified, less than 6 mm pulmonary nodules bilaterally, indeterminate for metastatic disease. 3. Octreotide scan done February 04, 2015, revealed findings consistent with multiple metastatic lesions in the liver. No definite uptake in the chest or elsewhere. 5-hydroxyindoleacetic acid in 24-hour urine specimen was normal. 4. Chromogranin A was elevated at 136. PROCEDURES 1. EGD done December 19, 2014, revealed stomach with histologic features consistent with reactive gastropathy. No active gastritis or Helicobacter pylori seen. 2. CT-guided biopsy of the liver mass done January 07, 2015, came back positive for well-differentiated neuroendocrine tumor. Ki-67 proliferation rate was 10% to 20%, consistent with GI intermediate grade (grade 2) well- differentiated neuroendocrine tumor. PATHOLOGY Positive for intermediate grade, well-differentiated neuroendocrine tumor grade 2 with Ki-67 proliferation rate of 10% to 20%. TREATMENT 1. Patient started treatment with Sandostatin March 2015. 2. Patient started treatment with capecitabine and Temodar January 11, 2016, for progressive disease. Patient stopped treatment with capecitabine and Temodar on August 31, 2017, because of progressive disease. 3. Patient started treatment with Avastin and temsirolimus on November 07, 2017. HISTORY OF PRESENT ILLNESS Patient is here today for followup of her neuroendocrine tumor with liver metastasis, on treatment currently with temsirolimus and Avastin. She showed a very good response to the current treatment with improvement of her general condition and reduction of her tumor markers. She is complaining of dry cough and sinus headache recently. She bruises easily. She is weak, tired and fatigued. She has some swelling at the tip of the nose from blowing her nose frequently lately. PAST MEDICAL HISTORY Insignificant except for: 1. Cataract removal. 2. Hypothyroidism. 3. Anxiety. PAST SURGICAL HISTORY 1. In January 1990, the patient had partial hysterectomy. 2. In 1959, the patient had tonsillectomy. 3. She had cataract surgeries between 2008 and 2009. SOCIAL HISTORY The patient is . She does not have biological children. 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 She has about 12 drinks per year. She denies any abuse of tobacco or illicit drugs. FAMILY HISTORY Father had lung cancer at the age of 72. CURRENT MEDICATIONS 1. Levothyroxine 125 mcg daily. 2. Sandostatin LAR 20 mg intramuscularly every month. 3. Zinc 50 mg daily. 4. Fish oil 1000 mg daily. 5. Calcium and vitamin D 1200 mg daily. 6. Zofran 4 mg three times daily. 7. Centrum multivitamin one tablet daily. ALLERGIES No known drug allergies. REVIEW OF SYSTEMS CONSTITUTIONAL: No appetite or weight change. No fever, chills, or sweating. No recent infection. HEENT: Ears: No tinnitus or hearing problem. Nose: She has runny and bloody nose occasionally. Throat: No sore throat or mouth ulcers. Eyes: No diplopia or visual changes. RESPIRATORY: Patient has dry cough. CARDIOVASCULAR: No chest pain, orthopnea, or paroxysmal nocturnal dyspnea (PND). No edema. No palpitations. GASTROINTESTINAL: No nausea or vomiting. No diarrhea or constipation. No change in bowel movements. No heartburn or swallowing difficulties. No abdominal pain. No jaundice. No hematemesis, melena, or rectal bleeding. GENITOURINARY: No hematuria or dysuria. MUSCULOSKELETAL: She has muscle aches. NEUROLOGICAL: She has sinus headache. HEMATOLOGIC/LYMPHATIC: She bruises easily. She is weak, tired and fatigued. SKIN: No skin rash or lumps. PSYCHIATRIC: No anxiety or depression. PHYSICAL EXAMINATION GENERAL: Looks stable. Well developed, well nourished, and in no acute distress. VITAL SIGNS: Blood pressure 154/87, pulse 98 per minute, respirations 16 per minute, temperature 97, pulse ox 97% on room air. HEENT: Head: Atraumatic. No sinus tenderness to palpation. Eyes: No icterus or conjunctivitis. Mouth and Throat: No oral thrush or mucositis. NECK: Supple. No cervical or supraclavicular lymphadenopathy. LUNGS: Clear to auscultation and percussion bilaterally. HEART: Regular rate and rhythm. No gallops, murmurs, clicks, or rubs. ABDOMEN: Soft and lax. No tenderness. No hepatosplenomegaly. No masses. EXTREMITIES: No cyanosis, clubbing, or edema. LYMPHATICS: No peripheral lymphadenopathy. NEUROLOGICAL: Conscious, alert, and oriented times three. No focal motor or sensory deficits. PSYCHIATRIC: Mood and affect appear normal. SKIN: No skin rash, bruise, or purpuric eruption. DIAGNOSTIC DATA CBC showed white count 2.9, hemoglobin 12.1, hematocrit 36.6, platelets 75,000. Chem panel is totally normal except chloride 110. CEA is 7.1, down from 10.7, and chromogranin A is 245, up from 209. ASSESSMENT 1. Stage IV neuroendocrine tumor grade 2 with mass in the distal body of the pancreas with metastasis to the liver and lung by CT abdomen and pelvis done January 05, 2015. CT-guided biopsy of the liver mass done January 05, 2015, came back positive for well-differentiated neuroendocrine tumor with Ki-67 proliferation rate of 10% to 20%, consistent with intermediate grade. Octreotide scan showed uptake in multiple lesions of the liver but not in the pancreas or in the lung or elsewhere. A 5-hydroxyindoleacetic acid in 24-hour urine sample was normal. Patient has been evaluated at the [facility] with recommendation of treatment with Sandostatin, which was given between March 2015 through December 10, 2015, when her CT scan of the abdomen and pelvis revealed severe hepatomegaly with innumerable metastases throughout the liver with evidence of progression. Patient started treatment with capecitabine and Temodar January 11, 2016. She tolerated treatment very well except for Temodar, which was stopped for four months, and the patient used capecitabine alone during those four months but her CEA rahul from 7.3 to 44.8, so Temodar was introduced again to her treatment but her CEA continues to rise as well as the chromogranin A. Her pathology tested for MSI-high and PD-L1 but both came back negative so the patient was not a candidate for checkpoint inhibitors. She started treatment with a combination of Avastin and temsirolimus on November 07, 2017 and she showed a good response of her tumor markers as well as improvement of her general condition. Her chromogranin A was 1,960, which dropped to 209 and currently it is 245. Her CEA was 51.8 and currently it is 7.1, dropped from 10.7 with her last cycle. Because of her thrombocytopenia, I am planning to hold her treatment. I am planning to resume her treatment when her platelet count is above 100,000 but I will decrease her dose of temsirolimus from 25 to 20 mg. I explained that to the patient. She is agreeable with the plan of management. I am planning to see her a month after resuming her treatment with CBC, chem panel, CEA and chromogranin A. 2. Chemotherapy-induced leukopenia. Current white count is 2.9. I will continue to monitor. 3. Chemotherapy-induced thrombocytopenia. Current platelet count is 75,000. I am planning to hold treatment with temsirolimus until her platelet count is at least above 100,000 and then I will decrease the dose of temsirolimus to 20 mg instead of 25 mg. 4. Hypothyroidism, on treatment. 5. Anxiety, on Zoloft. PLAN 1, Hold Avastin/temsirolimus. 2. Resume Avastin/temsirolimus at 20 mg dose when her platelet count is above 100,000. 3. Patient to return in five weeks from now with CBC, chem panel, chromogranin A and CEA. 4. CBC and chem panel to be checked weekly prior to each dose of treatment. 5. Patient to contact us for any new concern or complaints. MTDD
[2018-04-11 08:20] VITALS: BP 140/84
[2018-04-11] MEDS: LIDOCAINE/SOD BICARB 8.4% SYR ID PRN (08:35)
[2018-04-11] MEDS: NS(*) 0.9% 500 ML BAG 500 ML IV PRN (08:36)
[2018-04-11] MEDS: diphenhydrAMINE 25 MG CAP PO PRN (09:56)
[2018-04-11] MEDS: HEPARIN FLSH (PORT) 500 UN/5ML IVP PRN (11:30)
[2018-04-11 12:54] VITALS: BP 160/90
[2018-04-18 10:20] VITALS: BP 149/84
[2018-04-18] MEDS: diphenhydrAMINE 25 MG CAP PO PRN (10:53)
[2018-04-25 10:56] VITALS: BP 140/96
[2018-04-25] MEDS: diphenhydrAMINE 25 MG CAP PO PRN (11:01)
[2018-04-25] MEDS: HEPARIN FLSH (PORT) 500 UN/5ML IVP PRN (13:29)
[2018-04-25 13:30] VITALS: BP 140/84
[2018-05-02 10:15] VITALS: BP 158/94
[2018-05-02] MEDS: HEPARIN FLSH (PORT) 500 UN/5ML IVP PRN (10:28)
[2018-05-02] MEDS: LIDOCAINE/SOD BICARB 8.4% SYR ID PRN (10:28)
[2018-05-02] MEDS: NS(*) 0.9% 500 ML BAG 500 ML IV PRN (10:28)
[2018-05-03 10:39] VITALS: BP 132/87
--- NOTE | 2018-05-03 11:31 | [facility] ONCOLOGY NOTE ---
EVENT DATE: May 03, 2018 DIAGNOSES 1. 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 2. Hypothyroidism. 3. Anxiety. CHIEF COMPLAINT Patient is here today for followup of her neuroendocrine tumor of the pancreas with liver metastasis. ONCOLOGY HISTORY The patient is a 67-year-old female. The patient is here today for followup of her pancreatic neuroendocrine tumor with hepatic metastasis. The patient is stable clinically. She has some cough and nasal discharge from her allergy. She has occasional nausea, vomiting, and diarrhea. She has also right upper quadrant abdominal pain, especially on taking a breath. Hematologically, she is weak, tired, and fatigued. PRESENTATION Food poisoning when she was in [place] in August 2014 with persistent nausea and vomiting, treated with antibiotic without improvement. She was also treated with metronidazole for P. hominis, which helped some, but she remains with persistent nausea. She also developed right upper quadrant abdominal pain. DIAGNOSTIC EVALUATION 1. Ultrasound of the right upper quadrant done December 28, 2014, did reveal ill-defined hypoechoic globular mass in the tail of the pancreas, 3.3 x 2.8 cm, worrisome for pancreatic neoplasm. There appears to be numerous hepatic and splenic metastases. 2. CT abdomen and pelvis done January 05, 2015, did reveal 2.6 cm lesion within the distal pancreatic body, concerning for primary pancreatic malignancy. There were hepatic hypoattenuating lesions. There was right axillary mediastinal, subcarinal, hilar, periportal, and left periaortic adenopathy suspicious for metastatic disease with several noncalcified, less than 6 mm pulmonary nodules bilaterally, indeterminate for metastatic disease. 3. Octreotide scan done February 04, 2015, revealed findings consistent with multiple metastatic lesions in the liver. No definite uptake in the chest or elsewhere. 5-hydroxyindoleacetic acid in 24-hour urine specimen was normal. 4. Chromogranin A was elevated at 136. PROCEDURES 1. EGD done December 19, 2014, revealed stomach with histologic features consistent with reactive gastropathy. No active gastritis or Helicobacter pylori seen. 2. CT-guided biopsy of the liver mass done January 07, 2015, came back positive for well-differentiated neuroendocrine tumor. Ki-67 proliferation rate was 10% to 20%, consistent with GI intermediate grade (grade 2) well- differentiated neuroendocrine tumor. PATHOLOGY Positive for intermediate grade, well-differentiated neuroendocrine tumor grade 2 with Ki-67 proliferation rate of 10% to 20%. TREATMENT 1. Patient started treatment with Sandostatin March 2015. 2. Patient started treatment with capecitabine and Temodar January 11, 2016, for progressive disease. Patient stopped treatment with capecitabine and Temodar on August 31, 2017, because of progressive disease. 3. Patient started treatment with Avastin and temsirolimus on November 07, 2017. HISTORY OF PRESENT ILLNESS Patient is here today for followup of her neuroendocrine tumor with liver metastasis, on treatment with temsirolimus and Avastin. Patient showed a very good response to the current treatment but she developed thrombocytopenia significant so her treatment was held this week for temsirolimus. She has some dry cough, fatigue and tiredness but other than that she is really doing very well. PAST MEDICAL HISTORY Insignificant except for: 1. Cataract removal. 2. Hypothyroidism. 3. Anxiety. PAST SURGICAL HISTORY 1. In January 1990, the patient had partial hysterectomy. 2. In 1959, the patient had tonsillectomy. 3. She had cataract surgeries between 2008 and 2009. SOCIAL HISTORY The patient is . She does not have biological children. 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 She has about 12 drinks per year. She denies any abuse of tobacco or illicit drugs. FAMILY HISTORY Father had lung cancer at the age of 72. CURRENT MEDICATIONS 1. Levothyroxine 125 mcg daily. 2. Sandostatin LAR 20 mg intramuscularly every month. 3. Zinc 50 mg daily. 4. Fish oil 1000 mg daily. 5. Calcium and vitamin D 1200 mg daily. 6. Zofran 4 mg three times daily. 7. Centrum multivitamin one tablet daily. ALLERGIES No known drug allergies. REVIEW OF SYSTEMS CONSTITUTIONAL: No appetite or weight change. No fever, chills, or sweating. No recent infection. HEENT: Ears: No tinnitus or hearing problem. Nose: She has runny and bloody nose occasionally. Throat: No sore throat or mouth ulcers. Eyes: No diplopia or visual changes. RESPIRATORY: She has dry cough. CARDIOVASCULAR: No chest pain, orthopnea, or paroxysmal nocturnal dyspnea (PND). No edema. No palpitations. GASTROINTESTINAL: No nausea or vomiting. No diarrhea or constipation. No change in bowel movements. No heartburn or swallowing difficulties. No abdominal pain. No jaundice. No hematemesis, melena, or rectal bleeding. GENITOURINARY: No hematuria or dysuria. MUSCULOSKELETAL: She has muscle aches. NEUROLOGICAL: She has sinus headache. HEMATOLOGIC/LYMPHATIC: She is weak, tired and fatigued. SKIN: No skin rash or lumps. PSYCHIATRIC: No anxiety or depression. PHYSICAL EXAMINATION GENERAL: Looks stable. Well developed, well nourished, and in no acute distress. VITAL SIGNS: Blood pressure 152/87, pulse 117 per minute, respirations 16 per minute, temperature 97.4, pulse ox 94% on room air. HEENT: Head: Atraumatic. No sinus tenderness to palpation. Eyes: No icterus or conjunctivitis. Mouth and Throat: No oral thrush or mucositis. NECK: Supple. No cervical or supraclavicular lymphadenopathy. LUNGS: Clear to auscultation and percussion bilaterally. HEART: Regular rate and rhythm. No gallops, murmurs, clicks, or rubs. ABDOMEN: Soft and lax. No tenderness. No hepatosplenomegaly. No masses. EXTREMITIES: No cyanosis, clubbing, or edema. LYMPHATICS: No peripheral lymphadenopathy. NEUROLOGICAL: Conscious, alert, and oriented times three. No focal motor or sensory deficits. PSYCHIATRIC: Mood and affect appear normal. SKIN: No skin rash, bruise, or purpuric eruption. DIAGNOSTIC DATA CBC showed white count 3.1, hemoglobin 12.8, hematocrit 38.4, platelets 56,000. ANC was 2.2. Chem panel is totally normal except chloride 110, carbon dioxide 21, alkaline phosphatase 138. CEA is 6.4, which is down from 7.1 and chromogranin A is 249, which is up from 245. ASSESSMENT 1. Stage IV neuroendocrine tumor grade 2 with mass in the distal body of the pancreas with metastasis to the liver and lung by CT abdomen and pelvis done January 05, 2015. CT-guided biopsy of the liver mass done January 05, 2015, came back positive for well-differentiated neuroendocrine tumor. Ki-67 showed a proliferation rate of 10% to 20%, consistent with intermediate grade. Octreotide scan showed uptake in multiple lesions of the liver but not in the pancreas or in the lung or elsewhere. 5-hydroxyindoleacetic acid was normal. Patient has been evaluated at the [facility] with recommendation of treatment with Sandostatin, which was given between March 2015 through December 10, 2015, when her CT scan of the abdomen and pelvis revealed severe hepatomegaly with innumerable metastases throughout the liver with evidence of progression. Patient started treatment with capecitabine and Temodar January 11, 2016. She tolerated treatment well except for Temodar, which was stopped for four months, and the patient used capecitabine alone during those four months but her CEA rahul from 7.3 to 44.8, so Temodar was introduced again to her treatment but CEA continues to rise as well as the chromogranin A. Her pathology tested for MSI-high and PD-L1 but both came back negative so the patient is not a candidate for checkpoint inhibitors. She started treatment with a combination of Avastin and temsirolimus on November 07, 2017, and she showed a good response of her tumor markers as well as improvement of her general condition. Her chromogranin A was 1,960, which dropped to 209 and currently it is 249. CEA was 51.8 and currently it is 6.4, dropped from 7.1. She developed significant thrombocytopenia and her current platelet count is 56,000 so her treatment is on hold. I am planning to resume her treatment after platelet count is above 100,000 but I am planning to decrease the dose of temsirolimus from 25 to 50 mg and I will decrease the dose by 5 mg in the future if she continues to have this problem until it is 15 mg. We cannot decrease the dose below that level. I am planning to see her every month with CBC, chem panel, chromogranin A and CEA. 2. Chemotherapy-induced leukopenia. Current white count 3.1 and ANC 2.2. We will continue to monitor. 3. Chemotherapy-induced thrombocytopenia. Current platelet count is 56,000. I am planning to decrease the dose of temsirolimus by 5 mg and continue to monitor her platelet count every week. 4. Hypothyroidism, on treatment. 5. Anxiety, on Zoloft. PLAN 1, Hold Avastin/temsirolimus until platelets above 100,000. 2. Decrease the dose of temsirolimus by 5 mg from the current dose. 3. Patient to in a month with CBC, chem panel, CEA and chromogranin A. 4. CBC and chem panel to be checked weekly prior to each dose of treatment. 5. Patient to contact us for any new concerns or complaints. MTDD
[2018-05-09 10:12] VITALS: BP_SYST 145; BP_SYST 149; BP_DIAS 101; BP_DIAS 90
[2018-05-09] MEDS: LIDOCAINE/SOD BICARB 8.4% SYR ID PRN (10:19)
[2018-05-09] MEDS: NS(*) 0.9% 500 ML BAG 500 ML IV PRN (10:20)
[2018-05-09] MEDS: HEPARIN FLSH (PORT) 500 UN/5ML IVP PRN (10:20)
[2018-05-09 10:34] LABS: PLATELET COUNT, AUTOMATED 97 K/uL (150-450)
[2018-05-16] MEDS: HEPARIN FLSH (PORT) 500 UN/5ML IVP PRN (10:58)
[2018-05-16] MEDS: NS(*) 0.9% 500 ML BAG 500 ML IV PRN (10:58)
[2018-05-16] MEDS: diphenhydrAMINE 25 MG CAP PO PRN (10:58)
[2018-05-16 11:10] VITALS: BP 138/97
[2018-05-16 13:46] VITALS: BP 149/64
[2018-05-23 10:09] VITALS: BP 144/84
[2018-05-23] MEDS: diphenhydrAMINE 25 MG CAP PO PRN (10:53)
[2018-05-23] MEDS: LIDOCAINE/SOD BICARB 8.4% SYR ID PRN (11:17)
[2018-05-23] MEDS: HEPARIN FLSH (PORT) 500 UN/5ML IVP PRN (11:17)
[2018-05-23] MEDS: NS(*) 0.9% 500 ML BAG 500 ML IV PRN (11:17)
[2018-05-30 10:02] VITALS: BP 133/90
[2018-05-30] MEDS: HEPARIN FLSH (PORT) 500 UN/5ML IVP PRN (11:30)
--- NOTE | 2018-05-30 18:09 | ONCOLOGY FOLLOW UP NOTE ---
EVENT DATE: May 30, 2018 DIAGNOSES 1. 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 2. Hypothyroidism. 3. Anxiety. CHIEF COMPLAINT Patient is here today for ongoing followup care for her neuroendocrine tumor of the pancreas with liver metastasis. ONCOLOGY HISTORY The patient is a 68-year-old female. The patient is here today for followup of her pancreatic neuroendocrine tumor with hepatic metastasis. The patient is stable clinically. She has some cough and nasal discharge from her allergy. She has occasional nausea, vomiting, and diarrhea. She has also right upper quadrant abdominal pain, especially on taking a breath. Hematologically, she remains fatigued and has generalized weakness, but overall is stable. INTERIM HISTORY Maria L returns today for ongoing care. Currently, she reports feeling stable. She has not had any recent fevers, chills, or night sweats. She has not noticed any bleeding other than occasional epistaxis from dry nose. She denies any significant pain. She is trying to eat healthy foods and tells me that her appetite tends to wax and wane. She is under a bit of stress as her is currently admitted for apparently a severe UTI. She is currently on temsirolimus and Avastin. She did show good response to current treatment, but has developed some thrombocytopenia significant enough that treatment has been held. Currently, we are holding treatment unless platelets are at or above 100,000. PRESENTATION Food poisoning when she was in [place] in August 2014 with persistent nausea and vomiting, treated with antibiotic without improvement. She was also treated with metronidazole for P. hominis, which helped some, but she remains with persistent nausea. She also developed right upper quadrant abdominal pain. DIAGNOSTIC EVALUATION 1. Ultrasound of the right upper quadrant done December 28, 2014, did reveal ill-defined hypoechoic globular mass in the tail of the pancreas, 3.3 x 2.8 cm, worrisome for pancreatic neoplasm. There appears to be numerous hepatic and splenic metastases. 2. CT abdomen and pelvis done January 05, 2015, did reveal 2.6 cm lesion within the distal pancreatic body, concerning for primary pancreatic malignancy. There were hepatic hypoattenuating lesions. There was right axillary mediastinal, subcarinal, hilar, periportal, and left periaortic adenopathy suspicious for metastatic disease with several noncalcified, less than 6 mm pulmonary nodules bilaterally, indeterminate for metastatic disease. 3. Octreotide scan done February 04, 2015, revealed findings consistent with multiple metastatic lesions in the liver. No definite uptake in the chest or elsewhere. 5-hydroxyindoleacetic acid in 24-hour urine specimen was normal. 4. Chromogranin A was elevated at 136. PROCEDURES 1. EGD done December 19, 2014, revealed stomach with histologic features consistent with reactive gastropathy. No active gastritis or Helicobacter pylori seen. 2. CT-guided biopsy of the liver mass done January 07, 2015, came back positive for well-differentiated neuroendocrine tumor. Ki-67 proliferation rate was 10% to 20%, consistent with GI intermediate grade (grade 2) well- differentiated neuroendocrine tumor. PATHOLOGY Positive for intermediate grade, well-differentiated neuroendocrine tumor grade 2 with Ki-67 proliferation rate of 10% to 20%. TREATMENT 1. Patient started treatment with Sandostatin March 2015. 2. Patient started treatment with capecitabine and Temodar January 11, 2016, for progressive disease. Patient stopped treatment with capecitabine and Temodar on August 31, 2017, because of progressive disease. 3. Patient started treatment with Avastin and temsirolimus on November 07, 2017. PAST MEDICAL HISTORY Insignificant except for: 1. Cataract removal. 2. Hypothyroidism. 3. Anxiety. PAST SURGICAL HISTORY 1. In January 1990, the patient had partial hysterectomy. 2. In 1959, the patient had tonsillectomy. 3. She had cataract surgeries between 2008 and 2009. SOCIAL HISTORY The patient is . She does not have biological children. 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 She has about 12 drinks per year. She denies any abuse of tobacco or illicit drugs. FAMILY HISTORY Father had lung cancer at the age of 72. CURRENT MEDICATIONS 1. Levothyroxine 125 mcg daily. 2. Sandostatin LAR 20 mg intramuscularly every month. 3. Zinc 50 mg daily. 4. Fish oil 1000 mg daily. 5. Calcium and vitamin D 1200 mg daily. 6. Zofran 4 mg three times daily. 7. Centrum multivitamin one tablet daily. ALLERGIES No known drug allergies. REVIEW OF SYSTEMS CONSTITUTIONAL: Patient denies any recent fevers, chills, or night sweats. No recent infections. No significant weight change. Appetite is good, though this tends to wax and wane. HEENT: No vision changes. No tinnitus. No mucositis. No complaints of dysphagia or odynophagia. RESPIRATORY: She has an occasional cough. No pleuritic chest pain or hemoptysis. CARDIOVASCULAR: No chest pain, syncope, or presyncope. GASTROINTESTINAL: No abdominal pain, nausea, vomiting. No change in bowel movements. She occasionally has some constipation and diarrhea, though nothing severe. Appetite is stable. GENITOURINARY: No dysuria, hematuria, or urinary discharge. MUSCULOSKELETAL: She reports some generalized arthralgias, but no focal areas of pain. NEUROLOGIC: No current headache. No history of headaches, seizure-like activity, or paresthesias. ENDOCRINE: No heat or cold intolerance. She has chronic fatigue and generalized weakness, which is stable. DERM: No rash. No generalized pruritus. No lumps or bumps. Patient reports some brittle nails and some easy tearing of the nails, but no infection. PSYCHIATRIC: She denies any severe anxiety, severe depression, suicidal or homicidal ideation. The remainder of her 12-point review of systems is performed today and is otherwise negative. PHYSICAL EXAMINATION VITAL SIGNS: Weight today 73.3 kg, stable compared to last week. T 98.2, P 99, R 16, BP 133/90, oxygen saturation 93% room air. GENERAL: In general, this is a pleasant 68-year-old woman who appears well hydrated, well nourished, and is in no acute distress. HEAD: Atraumatic. Normocephalic. EYES: Sclerae anicteric. ENT, MOUTH: Moist mucous membranes. No mucositis. NECK: Supple. No lymphadenopathy. LUNGS: Clear to auscultation bilaterally. No focal findings. HEART: Regular rate and rhythm. No ectopy. ABDOMEN: Soft, nontender, nondistended. No organomegaly. EXTREMITIES: No edema. No clubbing or cyanosis. NEUROLOGIC: Patient is awake, alert, and oriented x3. PSYCHIATRIC: Mood and affect appear appropriate. DERM: No rash, petechiae, or purpura. MUSCULOSKELETAL: Gait is steady. LABORATORY CBC today: WBC 2.0, ANC 1.2, hemoglobin 12.7, hematocrit 38.8%, platelets 52,000. CMP today: Unremarkable with the exception of mildly elevated AST at 37. Previously, this was elevated at 38, and before that, this was at 43. Tumor markers on 05/16/18: CEA 7.2, up from 6.6. on 05/09/18. Chromogranin A up to 302, elevated from 278 previously on 05/09/18. IMPRESSION AND PLAN This is a pleasant 68-year-old woman with stage IV neuroendocrine tumor grade 2 with mass in the distal body of the pancreas with metastases to the liver and lung by CT abdomen and pelvis done January 05, 2015. CT-guided biopsy of the liver mass done January 05, 2015, came back positive for well-differentiated neuroendocrine tumor. Ki-67 showed a proliferation rate of 10% to 20%, consistent with intermediate grade. Octreotide scan showed uptake in multiple lesions of the liver, but not in the pancreas or in the lung or elsewhere. 5- hydroxyindoleacetic acid was normal. Patient has been evaluated at the [facility] with recommendation of treatment with Sandostatin, which was given between March 2015 through December 10, 2015, when her CT scan of the abdomen and pelvis revealed severe hepatomegaly with innumerable metastases throughout the liver with evidence of progression. Patient started treatment with capecitabine and Temodar January 11, 2016. She tolerated treatment well except for Temodar, which was stopped for four months, and the patient used capecitabine alone during those four months, but her CEA rahul from 7.3 to 44.8, so Temodar was introduced again to her treatment, but CEA continues to rise as well as the chromogranin A. Her pathology tested for MSI- high and PD-L1, but both came back negative, so the patient is not a candidate for checkpoint inhibitors. She started treatment with a combination of Avastin and temsirolimus on November 07, 2017, and she showed a good response of her tumor markers as well as improvement of her general condition. Her chromogranin A was 1,960, which dropped to 209, and currently it is 249. CEA was 51.8, and currently it is 6.4, dropped from 7.1. Most recent CEA from last week was up to 7.2. She has developed significant thrombocytopenia, and we have had to hold both temsirolimus and Avastin, though it is likely temsirolimus that is causing her thrombocytopenia. We do not want to resume treatment until platelet count is at or above 100,000. She has already had a dose reduction in her temsirolimus. We are decreasing the dose by 5 mg until we get to 15 mg. We will not decrease the dose below that level. 1. Thrombocytopenia, chemotherapy-induced: Platelet count today has dropped down to 52,000. This was 103,000 a week ago. She is not having any bleeding or bruising. I have written orders to hold both temsirolimus and Avastin today. We reviewed bleeding precautions. 2. I will check antiplatelet antibodies today due to her ongoing thrombocytopenia. 3. Leukopenia/neutropenia: ANC decreased down today to 1.2, previously 1.8. At this time, we are holding treatment, and hopefully treatment hold will give her counts time to recover. We reviewed neutropenia precautions. She is nontoxic-appearing, and vitals are stable. At this point, no intervention is required, and we will recheck this next week. 4. She will return to clinic next week for repeat CBC, and hopefully if counts are better, we will proceed with both temsirolimus and Avastin next week. 5. She will return to clinic in three to four weeks for followup with her medical oncologist and repeat labs. She may certainly follow up sooner in the interim if needed. MTDD
[2018-06-06 10:16] VITALS: BP 127/97
[2018-06-06] MEDS: LIDOCAINE/SOD BICARB 8.4% SYR ID PRN (10:24)
[2018-06-06] MEDS: diphenhydrAMINE 25 MG CAP PO PRN (10:53)
[2018-06-06] MEDS: NS(*) 0.9% 250 ML BAG 250 ML IVPB PRN (10:53)
[2018-06-06] MEDS: HEPARIN FLSH (PORT) 500 UN/5ML IVP PRN (13:35)
[2018-06-06 13:37] VITALS: BP 156/87
[2018-06-13 10:14] VITALS: BP 145/86
[2018-06-13] MEDS: NS(*) 0.9% 250 ML BAG 250 ML IVPB PRN (11:16)
[2018-06-13] MEDS: HEPARIN FLSH (PORT) 500 UN/5ML IVP PRN (11:16)
[2018-06-13] MEDS: diphenhydrAMINE 25 MG CAP PO PRN (11:16)
--- NOTE | 2018-06-15 15:05 | Medical Nutrition Therapy ---
Nutritional Education Nutrition Education Topic: Other (Diet with Ca) Learning Readiness: Interested Teaching Methods: Discussion Response to Teaching: Verbalize understanding Teaching Recipient: Patient Nutrition Counseling: pt cont wt loss. discussed pt lack of appetite and forgetting to eat. Brainstormed with pt ideas where she could get additional kcal. Encouraged pt to add a nutr supplment or other high kcal beverage as easiest way to increase kcal. Nutrition Monitoring & Eval RD Patient Assessment Time: [address] Assessment Type: RD Education Nutritional Comment: Provided 30 minutes nutrtion education for Ca JOSE Gallegos June 15, 2018 15:05
[~2018-06-20] VITALS: Ht 165.1 cm; Wt 72.6 kg
[~2018-06-20 10:00] MED LIST changes: +ALTEPLASE RECOMB 2 MG VIAL IVP PRN; +BEVACIZUMAB IVPB ONE; +DEXTROSE 5%(*) 100 ML BAG 100 ML IVPB PRN; +NS 0.9% IV ONE; +NS 0.9% IVPB ONE; +NS(*) 0.9% 100 ML BAG 100 ML IVPB PRN; +WATER FOR INJ,STERILE 20 ML IVP PRN; +[UNRECOGNIZED DRUG - OTHER] IV ONE; +[UNRECOGNIZED DRUG - OTHER] IV ONE; +[UNRECOGNIZED DRUG - OTHER] IV ONE
[2018-06-20 10:33] VITALS: BP 122/94
[2018-06-20] MEDS: NS(*) 0.9% 250 ML BAG 250 ML IVPB PRN (11:36)
[2018-06-20] MEDS: HEPARIN FLSH (PORT) 500 UN/5ML IVP PRN (11:36)
== END 2018-06-25 ==
LOC: ONC 10:00
PROVIDERS: ATTEND Internal Medicine Hematology
DX: Z51.11 Encounter for antineoplastic chemotherapy (principal); D3A.8 Other benign neuroendocrine tumors; C25.9 Malignant neoplasm of pancreas, unspecified; C78.00 Secondary malignant neoplasm of unspecified lung; R53.1 Weakness; R53.83 Other fatigue; R51 Headache; R05 Cough; Z92.21 Personal history of antineoplastic chemotherapy; D70.2 Other drug-induced agranulocytosis; D69.59 Other secondary thrombocytopenia; E03.9 Hypothyroidism, unspecified; F41.9 Anxiety disorder, unspecified
CPT/HCPCS: 81001; 82378; 84443; 85025; 85027; 86022; 86316; 96367; 96413; 96417; G0463; J1642; J7040; J7050; J9035; J9330; Q0163; 82040; 82247; 82310; 82374; 82435; 82465; 82565; 82947; 83718; 84075; 84132; 84155; 84295; 84450; 84460; 84478; 84520; 99212

== ENCOUNTER 2018-06-26 16:37 | Outpatient (RCR) | payer MEDICARE, OTHER ==
[~2018-06-26 16:37] MED LIST changes: -ALTEPLASE RECOMB 2 MG VIAL IVP PRN; -BEVACIZUMAB IVPB ONE; -DEXTROSE 5%(*) 100 ML BAG 100 ML IVPB PRN; -NS 0.9% IV ONE; -NS 0.9% IVPB ONE; -NS(*) 0.9% 100 ML BAG 100 ML IVPB PRN; -WATER FOR INJ,STERILE 20 ML IVP PRN; -[UNRECOGNIZED DRUG - OTHER] IV ONE; -[UNRECOGNIZED DRUG - OTHER] IV ONE; -[UNRECOGNIZED DRUG - OTHER] IV ONE; +diphenhydrAMINE 25 MG CAP PO PRN; +diphenhydrAMINE 50 MG/ML VIAL IVP PRN
[2018-06-27] MEDS ORDERED: NS(*) 0.9% 250 ML BAG 250 ML IVPB PRN (07:00)
[2018-06-27] MEDS ORDERED: DEXTROSE 5%(*) 100 ML BAG 100 ML IVPB PRN (07:00)
[2018-06-27] MEDS ORDERED: ALTEPLASE RECOMB 2 MG VIAL IVP PRN (07:00)
[2018-06-27] MEDS ORDERED: LIDOCAINE/SOD BICARB 8.4% SYR ID PRN (07:00)
[2018-06-27] MEDS ORDERED: NS(*) 0.9% 100 ML BAG 100 ML IVPB PRN (07:00)
[2018-06-27] MEDS ORDERED: WATER FOR INJ,STERILE 20 ML IVP PRN (07:00)
[2018-06-27] MEDS ORDERED: HEPARIN FLSH (PORT) 500 UN/5ML IVP PRN (07:00)
== END 2018-06-27 10:13 | disposition home or self-care (01) ==
LOC: ONC 16:37
PROVIDERS: ATTEND Internal Medicine Hematology
DX: Z02.9 Encounter for administrative examinations, unspecified (principal)

== ENCOUNTER 2018-08-01 11:15 | Outpatient (RCR) | payer MEDICARE, OTHER ==
[~2018-08-01 11:15] MED LIST changes: -diphenhydrAMINE 25 MG CAP PO PRN; -diphenhydrAMINE 50 MG/ML VIAL IVP PRN
--- NOTE | 2018-08-01 15:12 | PT PLAN OF CARE ---
Physician: Julian Omalley MD Patient is being seen: 1-2x/MO Therapist: Cecy Palomino, PT, DPT, CLT Medical Diagnosis: Pancreatic Neuroendocrine Tumor with Metastases Treatment Diagnosis: Pancreatic Neuroendocrine Tumor with Metastases Date of Onset: 11/29/17 Date of Initial Evaluation: 11/29/17 Date patient was last seen: 08/01/18 Number of treatments: 35 Number of cancellations/No shows: 1 INTERVENTIONS: Manual Therapy/STM/MET Strengthening/condition Ice/Heat Range of Motion Spinal Stabilization Ultrasound Stretching Iontophoresis Neuromuscular Re-ed Closed Chain Program Electrical Stim Posture/Body mechanics Gait Trg/Balance Trg Biofeedback Home Exercise Program Mech./Manual Traction Therapeutic Activities Pelvic Floor GOALS: In 2 MO pt will improve hip strength to 4/5 or greater in all major muscle groups for improved function with ADL's. MET In 4 MO pt will maintain ECOG performance status of grade 0-1 for maintenance of function with ADL's and decreased side-effects with ongoing oncological treatment. MET In 4 MO pt will maintain FACT-G score of 75 or greater for maintained function with ADL's. PATIENT'S GOAL: Maintain function with ADL's. Status of Patient's Goals: 2/3 MET Patient Compliance: Excellent Prognosis: Good Reasons for continuing therapy: Maria L has had a rougher patch with the last couple rounds of chemo. Secondary to abnormal lab values pt has been unable to have chemo the last couple rounds. Pt reports that she has been physically drained as well as emotionally drained lately with the recent of her sister and declining health of her . Despite these disparities, pt has done well at maintaining exercise level with her corporate trainer as well as yoga classes and has been seeking counseling services. At this time pt shows return of signs and symptoms of R shoulder impingement with minimal impairment at long lever positions. Knee and hip pain is no longer present with improved strength in each. Pt started on HEP to maintain and will be monitored over the next couple chemo sessions for improvement. Posture: Minimal thoracic kyphosis with forward head. Strength: LE MMT: Hip: flexion: B 4/5, Ext: L 4/5, R 4/5, Abd: B 5/5, Add: B 5/5. Knee: flexion: L 4+/5, R 4+/5, ext: B 5/5 Mobility: ECOG Performance Status: Grade 0 Outcome Measures: Functional Assessment of Cancer Treatment-General (FACT-G): PWB: , SWB: , EWB , FWB: , Total: 86/108 If you have any questions or concerns feel free to contact me at [phone]. Thank you, Cecy Palomino, PT, DPT, CLT MTDD
[2018-08-29] MEDS ORDERED: VALA500T63 PO (11:37)
[2018-08-29] MEDS ORDERED: MUPI1OIN2 TOP (11:56)
[2018-09-13] MEDS ORDERED: SERT25TA90 PO (15:42)
== END 2018-08-01 18:00 | disposition home or self-care (01) ==
LOC: PT 11:15
PROVIDERS: ATTEND Internal Medicine Hematology
DX: M75.42 Impingement syndrome of left shoulder (principal); C7A.1 Malignant poorly differentiated neuroendocrine tumors; C78.00 Secondary malignant neoplasm of unspecified lung